=== PATIENT | female | born 1950 | race Two or more races ===

== ENCOUNTER → 2017-02-27 | Outpatient (CLI) | payer MEDICARE, OTHER ==
[2017-02-27 12:19] LABS: Basophils # (auto) 0 uL; Basophils % (auto) 0.3 % (0.0-2.0); Eosinophils # (auto) 0.2 uL; Hemoglobin 15.1 g/dL (12.2-16.2); Lymphocytes # (auto) 1.3 uL; Lymphocytes % (auto) 15.1 % (10.0-50.0); Mean Corpuscular Hemoglobin 30.9 pg (28.0-32.0); Mean Corpuscular Hgb Conc. 32.2 g/dL (32.0-36.0); Mean Platelet Volume 8.5 fL (7.4-10.4); Monocytes # (auto) 0.5 uL; Monocytes % (auto) 5.5 % (0.0-12.0); Neutrophils # (auto) 6.6 uL; Neutrophils % (auto) 77.1 % (37.0-80.0); Platelet Count (auto) 297 10^3/uL (140-450); Red Cell Distribution Width 14.9 % (11.6-16.0); White Blood Cell 8.6 10^3/uL (4.4-10.8)
[2017-02-27 12:59] LABS: Urine Bilirubin Negative (Negative); Urine Blood TRACE /uL (Negative); Urine Color Yellow (Yellow); Urine Glucose Normal (Normal); Urine Ketone Negative (Negative); Urine Nitrite Negative (Negative); Urine RBC 1 /hpf (0 - 4); Urine Squamous Epithelial Cell FEW /hpf (<5); Urine Urobilinogen Normal (Negative); Urine pH 5.5 (5.0-8.0)
[2017-02-27 13:15] LABS: Urine Protein/Creatinine Ratio 0.11
[2017-02-27 14:16] LABS: Albumin 3.5 g/dL (3.4-5.0); BUN/Creatinine Ratio 15.2; Calcium 8.6 mg/dL (8.5-10.1); Phosphorus 2.8 mg/dL (2.5-4.90); Potassium 3.8 mmol/L (3.5-5.1); Uric Acid 3.3 mg/dL (2.6-6.0)
== END | disposition home or self-care (01) ==
LOC: LAB 10:52
PROVIDERS: ATTEND Internal Medicine Cardiovascular Disease
DX: N18.3 Chronic kidney disease, stage 3 (moderate) (principal); E21.3 Hyperparathyroidism, unspecified; E63.1 Imbalance of constituents of food intake; R80.9 Proteinuria, unspecified; E78.5 Hyperlipidemia, unspecified; E55.9 Vitamin D deficiency, unspecified; M10.9 Gout, unspecified
CPT/HCPCS: 36415; 80069; 81001; 82306; 82570; 83970; 84156; 84550; 85025

== ENCOUNTER → 2017-10-02 | Outpatient (CLI) | payer MEDICARE, OTHER ==
[2017-10-02 16:29] LABS: Basophils # (auto) 0 uL; Basophils % (auto) 0.4 % (0.0-2.0); Eosinophils # (auto) 0.1 uL; Eosinophils % (auto) 1.8 % (0.0-7.0); Hematocrit 45.7 % (36.0-46.0); Lymphocytes # (auto) 1.1 uL; Lymphocytes % (auto) 14.3 % (10.0-50.0); Mean Corpuscular Hemoglobin 32.1 pg (28.0-32.0); Mean Corpuscular Hgb Conc. 32.9 g/dL (32.0-36.0); Mean Corpuscular Volume 97.5 fL (80.0-100.0); Mean Platelet Volume 8.3 fL (6.9-10.8); Monocytes # (auto) 0.4 uL; Monocytes % (auto) 5.4 % (0.0-12.0); Neutrophils # (auto) 6.1 uL; Neutrophils % (auto) 78.1 % (37.0-80.0); Nucleated Red Blood Cells % 0.3 %; Platelet Count (auto) 231 10^3/uL (140-450); Red Cell Distribution Width 14.9 % (11.8-14.3); White Blood Cell 7.8 10^3/uL (4.4-10.8)
[2017-10-02 16:33] LABS: Urine Bilirubin Negative (Negative); Urine Blood Negative /uL (Negative); Urine Color Yellow (Yellow); Urine Glucose Normal (Normal); Urine Ketone Negative (Negative); Urine Mucus FEW (None Seen); Urine Nitrite Negative (Negative); Urine RBC 1 /hpf (0 - 4); Urine Squamous Epithelial Cell FEW /hpf (<5); Urine Urobilinogen Normal (Negative); Urine pH 5.5 (5.0-8.0)
[2017-10-02 16:36] LABS: Albumin 3.5 g/dL (3.4-5.0); Calcium 9.1 mg/dL (8.5-10.1); Potassium 4.1 mmol/L (3.5-5.1)
[2017-10-02 16:51] LABS: Bilirubin, Total 0.8 mg/dL (0.2-1.0); Total Protein 7.6 g/dL (6.4-8.2)
[2017-10-02 17:41] LABS: Bilirubin, Direct 0.2 mg/dL (0-0.2); Uric Acid 3.7 mg/dL (2.6-6.0)
== END | disposition home or self-care (01) ==
LOC: LAB 11:06
PROVIDERS: ATTEND Internal Medicine Cardiovascular Disease
DX: I10 Essential (primary) hypertension (principal); E11.9 Type 2 diabetes mellitus without complications; E78.00 Pure hypercholesterolemia, unspecified; K74.1 Hepatic sclerosis; E03.9 Hypothyroidism, unspecified; D64.9 Anemia, unspecified; E55.9 Vitamin D deficiency, unspecified; N39.0 Urinary tract infection, site not specified
CPT/HCPCS: 36415; 80048; 80061; 80076; 81001; 82306; 82570; 83036; 83970; 84156; 84443; 84550; 85025

== ENCOUNTER → 2018-04-10 | Outpatient (CLI) | payer MEDICARE, OTHER ==
[2018-04-10 16:20] LABS: Urine Bacteria FEW /hpf (None Seen); Urine Blood Negative /uL (Negative); Urine Mucus FEW (None Seen); Urine Specific Gravity 1.021 (1.001-1.035); Urine WBC 1 /hpf (0 - 5)
[2018-04-10 16:24] LABS: Albumin 3.3 g/dL (3.4-5.0); BUN/Creatinine Ratio 15.7; Calcium 8.6 mg/dL (8.5-10.1); Phosphorus 3.3 mg/dL (2.5-4.90); Uric Acid 3.4 mg/dL (2.6-6.0)
[2018-04-10 16:28] LABS: Protein, Urine 25.1 mg/dL (0.0-11.9)
[2018-04-10 16:37] LABS: Basophils # (auto) 0.1 uL; Basophils % (auto) 0.9 % (0.0-2.0); Eosinophils # (auto) 0.3 uL; Eosinophils % (auto) 2.8 % (0.0-7.0); Hemoglobin 14.9 g/dL (12.2-16.2); Lymphocytes # (auto) 1.5 uL; Lymphocytes % (auto) 16.3 % (10.0-50.0); Mean Corpuscular Hemoglobin 31.9 pg (28.0-32.0); Mean Corpuscular Volume 96.6 fL (80.0-100.0); Monocytes # (auto) 0.6 uL; Monocytes % (auto) 6.5 % (0.0-12.0); Neutrophils # (auto) 6.9 uL; Neutrophils % (auto) 73.5 % (37.0-80.0); Nucleated Red Blood Cells % 0.2 %; Platelet Count (auto) 238 10^3/uL (140-450); Red Blood Cells 4.66 10^6/uL (4.0-5.20); White Blood Cell 9.4 10^3/uL (4.4-10.8)
== END | disposition home or self-care (01) ==
LOC: LAB 11:11
PROVIDERS: ATTEND Internal Medicine
DX: M10.9 Gout, unspecified (principal); R80.9 Proteinuria, unspecified; I12.9 Hypertensive chronic kidney disease with stage 1 through stage 4 chronic kidney disease, or unspecified chronic kidney disease; E11.22 Type 2 diabetes mellitus with diabetic chronic kidney disease; N18.3 Chronic kidney disease, stage 3 (moderate); D63.1 Anemia in chronic kidney disease; E27.3 Drug-induced adrenocortical insufficiency; E78.5 Hyperlipidemia, unspecified
CPT/HCPCS: 36415; 80069; 81001; 82570; 83970; 84156; 84550; 85025

== ENCOUNTER → 2018-12-18 | Outpatient (CLI) | payer MEDICARE, OTHER ==
[2018-12-18 16:23] LABS: Basophils # (auto) 0.1 uL; Basophils % (auto) 0.7 % (0.0-2.0); Eosinophils # (auto) 0.2 uL; Eosinophils % (auto) 2.2 % (0.0-7.0); Hematocrit 46.5 % (36.0-46.0); Lymphocytes % (auto) 13.4 % (10.0-50.0); Mean Corpuscular Hemoglobin 31.4 pg (28.0-32.0); Mean Corpuscular Hgb Conc. 32.3 g/dL (32.0-36.0); Mean Corpuscular Volume 97.4 fL (80.0-100.0); Monocytes # (auto) 0.6 uL; Monocytes % (auto) 7.7 % (0.0-12.0); Neutrophils # (auto) 5.6 uL; Nucleated Red Blood Cells % 0.7 %; Platelet Count (auto) 215 10^3/uL (140-450); Red Blood Cells 4.77 10^6/uL (4.0-5.20); Red Cell Distribution Width 15.8 % (11.8-14.3); White Blood Cell 7.4 10^3/uL (4.4-10.8)
[2018-12-18 16:27] LABS: Urine Blood Negative /uL (Negative); Urine Specific Gravity 1.014 (1.001-1.035)
[2018-12-18 16:33] LABS: Albumin 3.7 g/dL (3.4-5.0); Calcium 8.8 mg/dL (8.5-10.1); Potassium 3.6 mmol/L (3.5-5.1); Uric Acid 3.6 mg/dL (2.6-6.0)
[2018-12-18 16:38] LABS: BUN/Creatinine Ratio 13.4; Bilirubin, Direct 0.4 mg/dL (0-0.2); Bilirubin, Total 1.4 mg/dL (0.2-1.0); Phosphorus 3.5 mg/dL (2.5-4.90); Total Protein 6.9 g/dL (6.4-8.2)
[2018-12-18 16:41] LABS: Creatinine, Urine 105 mg/dL (30.0-125.0); Protein, Urine 63.5 mg/dL (0.0-11.9)
== END | disposition home or self-care (01) ==
LOC: LAB 11:05
PROVIDERS: ATTEND Internal Medicine
DX: E55.9 Vitamin D deficiency, unspecified (principal); M10.9 Gout, unspecified; E21.4 Other specified disorders of parathyroid gland; R80.9 Proteinuria, unspecified; E78.5 Hyperlipidemia, unspecified; N39.0 Urinary tract infection, site not specified
CPT/HCPCS: 36415; 80061; 80069; 80076; 81003; 82306; 82570; 83970; 84156; 84550; 85025

== ENCOUNTER → 2018-12-31 | Outpatient (CLI) | payer MEDICARE, OTHER | END | disposition home or self-care (01) | LOC: Rad HDHVI 14:59 | PROVIDERS: ATTEND Internal Medicine Cardiovascular Disease | DX: I07.1 Rheumatic tricuspid insufficiency (principal); I12.9 Hypertensive chronic kidney disease with stage 1 through stage 4 chronic kidney disease, or unspecified chronic kidney disease; N18.9 Chronic kidney disease, unspecified; E78.5 Hyperlipidemia, unspecified | CPT/HCPCS: 93306 ==

== ENCOUNTER → 2019-01-11 | Outpatient (CLI) | payer MEDICARE, OTHER ==
[2019-01-11 11:00] VITALS: BP 153/76
--- NOTE | 2019-01-11 11:00 | NUR ---
MORBIDLY OBESE FEMALE IN TO CLINIC FOR NEW START EVALUATION AND PAH EDUCATION. IN ATTENDANCE. CRUTCHES IN USE FOR AMBULATORY ASSISTANCE. DYSPNEA NOTED WITH ACTIVITY. VS WNL.
[2019-01-11 13:47] VITALS: BP 139/63
--- NOTE | 2019-01-11 13:47 | NUR ---
EXTENSIVE EDUCATION REGARDING PAH DISEASE PROCESS, TREATMENT, SYMPTOMS AND LIFESTYLE MANAGEMENT BY JUNIOR RN WITH PATIENT AND PATIENTS . RECEPTIVE TO EDUCATION. VERBAL, WRITTEN, TEACHING TOOLS AND DEMONSTRATION METHODS USED. PT VERBALIZED OPENLY ABOUT CURRENT STATUS AND CONCERNS REGARDING HEALTH. PLAN FOR WELLNESS AND INITIAL GOALS DISCUSSED. PT TO START ADCIRCA 20 MG PO BID. CARDIODYNAMICS DONE AND REVIEWED. 6MWT DONE AND REVIEWED. LABS DRAWN AND SENT. ALL QUESTIONS ANSWERED TO SATISFACTION AND ADDITIONAL QUESTIONS DENIED. ONE ON ONE EDUCATION FOR 2 HOURS TOTAL ACHIEVED.Discharge Instructions See e-MAR for any mediations given with this visit. Patient education given on disease process. Patient verbalized understanding. Previous labs reviewed. Patient discharged in stable condition TO CARE OF with after care instructions and follow up appointment FOR 1 MONTH.
[2019-01-11 15:59] LABS: Basophils # (auto) 0 uL; Basophils % (auto) 0.7 % (0.0-2.0); Eosinophils # (auto) 0.2 uL; Eosinophils % (auto) 2.2 % (0.0-7.0); Hematocrit 46.6 % (36.0-46.0); Lymphocytes # (auto) 1.1 uL; Lymphocytes % (auto) 15.5 % (10.0-50.0); Mean Corpuscular Hgb Conc. 32.1 g/dL (32.0-36.0); Mean Corpuscular Volume 96.5 fL (80.0-100.0); Monocytes # (auto) 0.5 uL; Monocytes % (auto) 6.6 % (0.0-12.0); Neutrophils # (auto) 5.1 uL; Nucleated Red Blood Cells % 0.3 %; Platelet Count (auto) 216 10^3/uL (140-450); Red Blood Cells 4.83 10^6/uL (4.0-5.20); Red Cell Distribution Width 15.5 % (11.8-14.3); White Blood Cell 6.8 10^3/uL (4.4-10.8)
[2019-01-11 16:30] LABS: Albumin 3.1 g/dL (3.4-5.0); Calcium 8.7 mg/dL (8.5-10.1); Magnesium 2.3 mg/dL (1.6-2.6)
[2019-01-11 16:34] LABS: BUN/Creatinine Ratio 18.6; Bilirubin, Total 0.9 mg/dL (0.2-1.0); Total Protein 6.6 g/dL (6.4-8.2)
== END | disposition home or self-care (01) ==
LOC: CHF HDHVI 11:00
PROVIDERS: ATTEND Internal Medicine Cardiovascular Disease
DX: I27.20 Pulmonary hypertension, unspecified (principal); I25.10 Atherosclerotic heart disease of native coronary artery without angina pectoris; E83.40 Disorders of magnesium metabolism, unspecified; D64.9 Anemia, unspecified; I12.9 Hypertensive chronic kidney disease with stage 1 through stage 4 chronic kidney disease, or unspecified chronic kidney disease; N18.9 Chronic kidney disease, unspecified
CPT/HCPCS: 36415; 80053; 83735; 85025; 93701; 94618; G0463

== ENCOUNTER → 2019-01-28 | Outpatient (CLI) | payer MEDICARE, OTHER ==
[2019-01-28 11:30] VITALS: BP 122/75
[2019-01-28 12:15] VITALS: BP 118/64
--- NOTE | 2019-01-28 12:15 | NUR ---
CHF CLINIC Discharge Instructions See e-MAR for any mediations given with this visit. Patient education given on disease process. Patient verbalized understanding. Previous labs reviewed. Patient discharged in stable condition with after care instructions and follow up appointment. NOTE PATIENT IS NEW ENROLLMENT ON ADEMPAS. LABS SENT, QUESTIONS ON NEW MEDICATION ANSWERED, PATIENT WILL RETURN TO CLINIC WHEN PRESCRIPTION ARRIVES.
[2019-01-28 16:19] LABS: Magnesium 2.4 mg/dL (1.6-2.6); Potassium 3.8 mmol/L (3.5-5.1)
== END | disposition home or self-care (01) ==
LOC: CHF HDHVI 10:55
PROVIDERS: ATTEND Internal Medicine Cardiovascular Disease
DX: E11.9 Type 2 diabetes mellitus without complications (principal); E83.40 Disorders of magnesium metabolism, unspecified; E03.9 Hypothyroidism, unspecified; E87.6 Hypokalemia; R94.4 Abnormal results of kidney function studies
CPT/HCPCS: 36415; 82565; 83036; 83735; 84132; 84443; 84520

== ENCOUNTER → 2019-02-19 | Outpatient (CLI) | payer MEDICARE, OTHER ==
[2019-02-19 12:30] VITALS: BP 136/51
--- NOTE | 2019-02-19 12:30 | NUR ---
CHF PT ARRIVED AT THE CHF CLINIC FOR NEW PAH THERAPY. VITAL SIGNS OBTAINED 0 DISTRESS NOTED
--- NOTE | 2019-02-19 12:45 | NUR ---
Dr. Juni Hughes at bedside Dr. Hughes at bedside for exam. Additional orders received and carried out. DISCUSSED PLAN OF CARE WITH PATIENT . NEW START ADEMPOS 0.5 MG TID , FOLLOW UP IN 1 WEEK. LABS DRAWN POTASSIUM, BUN, CREA
[2019-02-19 14:17] VITALS: BP 155/67
--- NOTE | 2019-02-19 14:17 | NUR ---
Discharge Instructions See e-MAR for any mediations given with this visit. Patient education given on disease process. Patient verbalized understanding. Previous labs reviewed. Patient discharged in stable condition with after care instructions and follow up appointment.
== END | disposition home or self-care (01) ==
LOC: CHF HDHVI 12:35
PROVIDERS: ATTEND Internal Medicine Cardiovascular Disease
DX: I27.21 Secondary pulmonary arterial hypertension (principal)
CPT/HCPCS: G0463

== ENCOUNTER → 2019-03-01 | Outpatient (CLI) | payer MEDICARE, OTHER ==
[2019-03-01 13:20] VITALS: BP 126/68
[2019-03-01 14:38] VITALS: BP 121/63
--- NOTE | 2019-03-01 14:38 | NUR ---
IN TO CLINIC FOR PAH FOLLOWUP AFTER STARTING ADEMPAS X 1 WEEK AGO. WITHOUT DISTRESS OR DISCOMFORT. VS WNL. LABS DRAWN AND SENT. MEDICATION REVIEW COMPLETED. TEACHING WITH MEDICATIONS AND ADLS BY JUNIOR WEBER. Discharge Instructions See e-MAR for any mediations given with this visit. Patient education given on disease process. Patient verbalized understanding. Previous labs reviewed. Patient discharged in stable condition with after care instructions and follow up appointment FOR Monday03/04/[address] COLEMAN.
[2019-03-01 15:51] LABS: Basophils # (auto) 0 uL; Basophils % (auto) 0.7 % (0.0-2.0); Eosinophils # (auto) 0.2 uL; Eosinophils % (auto) 2.4 % (0.0-7.0); Hematocrit 42.7 % (36.0-46.0); Lymphocytes # (auto) 1.4 uL; Lymphocytes % (auto) 20.5 % (10.0-50.0); Mean Corpuscular Hemoglobin 31.6 pg (28.0-32.0); Mean Corpuscular Hgb Conc. 32.8 g/dL (32.0-36.0); Mean Corpuscular Volume 96.3 fL (80.0-100.0); Monocytes # (auto) 0.5 uL; Monocytes % (auto) 7.1 % (0.0-12.0); Neutrophils # (auto) 4.8 uL; Neutrophils % (auto) 69.3 % (37.0-80.0); Nucleated Red Blood Cells % 0.1 %; Platelet Count (auto) 174 10^3/uL (140-450); Red Blood Cells 4.43 10^6/uL (4.0-5.20); White Blood Cell 6.9 10^3/uL (4.4-10.8)
[2019-03-01 15:57] LABS: Albumin 3.2 g/dL (3.4-5.0); Calcium 8.8 mg/dL (8.5-10.1); Magnesium 2.4 mg/dL (1.6-2.6); Potassium 4.4 mmol/L (3.5-5.1)
[2019-03-01 16:03] LABS: BUN/Creatinine Ratio 21.3; Total Protein 6.3 g/dL (6.4-8.2)
== END | disposition home or self-care (01) ==
LOC: CHF HDHVI 13:49
PROVIDERS: ATTEND Internal Medicine Cardiovascular Disease
DX: D64.9 Anemia, unspecified (principal); I10 Essential (primary) hypertension; I27.21 Secondary pulmonary arterial hypertension; E66.9 Obesity, unspecified; Z79.899 Other long term (current) drug therapy
CPT/HCPCS: 36415; 80053; 83735; 85025; G0463

== ENCOUNTER → 2019-03-12 | Outpatient (CLI) | payer MEDICARE, OTHER ==
[2019-03-12 14:00] VITALS: BP 128/71
[2019-03-12 14:55] VITALS: BP 113/57
--- NOTE | 2019-03-12 14:55 | NUR ---
IN TO CLINIC FOR PAH FOLLOWUP. AMBULATES WITH USE OF CRUTCHES . WITHOUT DISTRESS OR DISCOMFORT. EVALUATE PAH AND MEDICATION REGIMEN. CARDIODYNAMICS DONE AND REVIEWED. Discharge Instructions See e-MAR for any mediations given with this visit. Patient education given on disease process. Patient verbalized understanding. Previous labs reviewed. Patient discharged in stable condition with after care instructions and follow up appointment IN 2 WEEKS
[2019-03-12 17:02] LABS: Albumin 3.3 g/dL (3.4-5.0); Calcium 9.8 mg/dL (8.5-10.1); Magnesium 2.2 mg/dL (1.6-2.6); Potassium 4.1 mmol/L (3.5-5.1)
[2019-03-12 17:06] LABS: BUN/Creatinine Ratio 22.9; Bilirubin, Total 0.8 mg/dL (0.2-1.0); Total Protein 6.3 g/dL (6.4-8.2)
[2019-03-12 17:08] LABS: Basophils # (auto) 0 uL; Basophils % (auto) 0.7 % (0.0-2.0); Eosinophils # (auto) 0.1 uL; Eosinophils % (auto) 1.8 % (0.0-7.0); Hematocrit 42.3 % (36.0-46.0); Lymphocytes % (auto) 16.6 % (10.0-50.0); Mean Corpuscular Hemoglobin 31.8 pg (28.0-32.0); Mean Corpuscular Volume 96.2 fL (80.0-100.0); Monocytes # (auto) 0.4 uL; Monocytes % (auto) 5.8 % (0.0-12.0); Neutrophils # (auto) 4.7 uL; Neutrophils % (auto) 75.1 % (37.0-80.0); Platelet Count (auto) 186 10^3/uL (140-450); Red Cell Distribution Width 16.6 % (11.8-14.3); White Blood Cell 6.3 10^3/uL (4.4-10.8)
== END | disposition home or self-care (01) ==
LOC: CHF HDHVI 14:38
PROVIDERS: ATTEND Internal Medicine Cardiovascular Disease
DX: D64.9 Anemia, unspecified (principal); E61.2 Magnesium deficiency; I11.0 Hypertensive heart disease with heart failure; I50.9 Heart failure, unspecified; E66.01 Morbid (severe) obesity due to excess calories; R53.83 Other fatigue; I25.10 Atherosclerotic heart disease of native coronary artery without angina pectoris
CPT/HCPCS: 36415; 80053; 83735; 85025; 93701; G0463

== ENCOUNTER → 2019-03-26 | Outpatient (CLI) | payer MEDICARE, OTHER ==
[2019-03-26 13:30] VITALS: BP 112/58
[2019-03-26 15:00] VITALS: BP 99/51
--- NOTE | 2019-03-26 15:02 | NUR ---
IN TO CLINIC FOR PAH FOLLOWUP. MORBIDLY OBESE AND USES CRUTCHES FOR ROUTINE AMBULATION. CARDIODYNAMICS DONE AND REVIEWED. MEDICATION REGIMEN REVIEWED WITH CURRENT SCHEDULE. REDUCE CURRENT BP MED LISINOPRIL TO 5 MG PO BID. (FROM 10 MG PO DAILY). PAH REVIEW AND EDUCATION WITH JUNIOR WEBER. ADDITIONAL QUESTIONS DENIED. PT IS REPORTING SIGNIFICANT HEARTBURN. NEW RX FOR DEXILANT SENT ELECTRONICALLY TO PTS PHARMACY. REDUCE LISINOPRIL TO 5 MG PO BID AND START DEXILANT 60 MG PO DAILY DISCHARGED TO SELF CARE IN NO DISTRESS OR DISCOMFORT.
[2019-03-26 16:03] LABS: Basophils # (auto) 0 uL; Basophils % (auto) 0.5 % (0.0-2.0); Eosinophils # (auto) 0.1 uL; Eosinophils % (auto) 1.6 % (0.0-7.0); Hematocrit 42.5 % (36.0-46.0); Lymphocytes # (auto) 1.2 uL; Lymphocytes % (auto) 15.9 % (10.0-50.0); Mean Corpuscular Hemoglobin 31.9 pg (28.0-32.0); Mean Corpuscular Hgb Conc. 32.8 g/dL (32.0-36.0); Mean Corpuscular Volume 97.3 fL (80.0-100.0); Monocytes # (auto) 0.4 uL; Monocytes % (auto) 5.9 % (0.0-12.0); Neutrophils # (auto) 5.6 uL; Neutrophils % (auto) 76.1 % (37.0-80.0); Nucleated Red Blood Cells % 0.1 %; Platelet Count (auto) 167 10^3/uL (140-450); Red Blood Cells 4.37 10^6/uL (4.0-5.20); Red Cell Distribution Width 17.1 % (11.8-14.3); White Blood Cell 7.4 10^3/uL (4.4-10.8)
[2019-03-26 16:05] LABS: Urine Blood Negative /uL (Negative); Urine Specific Gravity 1.017 (1.001-1.035)
[2019-03-26 16:13] LABS: Albumin 3.4 g/dL (3.4-5.0); BUN/Creatinine Ratio 21.5; Calcium 9.5 mg/dL (8.5-10.1); Phosphorus 3.5 mg/dL (2.5-4.90); Uric Acid 4.2 mg/dL (2.6-6.0)
[2019-03-26 16:23] LABS: Creatinine, Urine 202 mg/dL (30.0-125.0); Protein, Urine 28.7 mg/dL (0.0-11.9)
== END | disposition home or self-care (01) ==
LOC: CHF HDHVI 13:41
PROVIDERS: ATTEND Internal Medicine Cardiovascular Disease
DX: E21.4 Other specified disorders of parathyroid gland (principal); R80.9 Proteinuria, unspecified; N25.89 Other disorders resulting from impaired renal tubular function; M10.9 Gout, unspecified; D64.9 Anemia, unspecified; I11.0 Hypertensive heart disease with heart failure; I50.9 Heart failure, unspecified; I25.10 Atherosclerotic heart disease of native coronary artery without angina pectoris; E66.01 Morbid (severe) obesity due to excess calories; E11.69 Type 2 diabetes mellitus with other specified complication; E03.9 Hypothyroidism, unspecified; Z79.899 Other long term (current) drug therapy
CPT/HCPCS: 36415; 80048; 80069; 81003; 82570; 83970; 84156; 84550; 85025; 93701; G0463

== ENCOUNTER → 2019-04-09 | Outpatient (CLI) | payer MEDICARE, OTHER ==
[2019-04-09 13:00] VITALS: BP 112/46
[2019-04-09 14:00] VITALS: BP 97/43
--- NOTE | 2019-04-09 14:00 | NUR ---
IN TO CLINIC FOR PAH FOLLOWUP. USING CRUTCHES TO AMBULATE. AFFECT CHEERFUL. WITHOUT DISTRESS OR DISCOMFORT. PT VERBALIZES CONCERN OVER LOW BPS AT HOME. BROUGHT CUFF FROM HOME. CUFF CALIBRATED AND PT WAS PLACING CUFF INCORRECTLY ON ARM. INSTRUCTED ON CORRECT PLACEMENT AND DEMONSTRATED ALSO.VS WNL. WITHOUT DISTRESS OR DISCOMFORT. PT DECLINED CARDIODYNAMICS AND DECLINED 6MWT. DISCHARGED TO SELF CARE WITH FOLLOWUP IN 2 WEEKS 04/23/19 [id number].
== END | disposition home or self-care (01) ==
LOC: CHF HDHVI 13:22
PROVIDERS: ATTEND Internal Medicine Cardiovascular Disease
DX: I27.21 Secondary pulmonary arterial hypertension (principal)
CPT/HCPCS: G0463

== ENCOUNTER → 2019-05-15 | Outpatient (CLI) | payer MEDICARE, OTHER | END | disposition home or self-care (01) | LOC: Rad HDHVI 15:02 | PROVIDERS: ATTEND Internal Medicine Cardiovascular Disease | DX: I08.1 Rheumatic disorders of both mitral and tricuspid valves (principal); I27.21 Secondary pulmonary arterial hypertension; R06.02 Shortness of breath | CPT/HCPCS: 93306 ==

== ENCOUNTER → 2019-05-23 | Outpatient (CLI) | payer MEDICARE, OTHER ==
[~2019-05-23] MED LIST: CYANOCOBALAMIN (B-12) 1000 MCG/1 ML VIAL IM ONE; CYANOCOBALAMIN (B-12) 1000 MCG/1 ML VIAL ONE
--- NOTE | 2019-05-23 12:30 | NUR ---
PT. TO PAH/CHF CLINIC FOR EVAL. AND TX. WT UP 3 LBS SINCE LAST VISIT, BUT PT. HAS NOT BEEN COMPLIANT WITH QOD DIURETICS DUE TO THE PASSING OF HER MOTHER AND INCREASE STRESS. NEW MD ORDERS RECEIVED AND CARRIED OUT. SEE NSG ASSESS.
[2019-05-23 12:45] VITALS: BP 120/53
--- NOTE | 2019-05-23 13:10 | NUR ---
CARDIODYNAMICS DONE WITH RESULTS REVIEWED WITH PT. AND CHARTED.
--- NOTE | 2019-05-23 13:25 | NUR ---
LABS DRAWN AND SENT.
--- NOTE | 2019-05-23 13:45 | NUR ---
MEDS: PT. MEDICATED WITH VIT. B12 1000MCG IM RT DELT. PER MD ORDER.
[2019-05-23 14:15] VITALS: BP 116/44
--- NOTE | 2019-05-23 14:15 | NUR ---
Discharge Instructions See e-MAR for any mediations given with this visit. Patient education given on disease process. Patient verbalized understanding. Previous labs reviewed. Patient discharged in stable condition with after care instructions and follow up appointment. PT. TO RTC ON 06/04 FOR LABS. PT. TO STAY AT ADEMPAS 1.5 MG TID UNTIL SHE RETURNS FROM [facility].
--- NOTE | 2019-05-23 14:20 | NUR ---
NOTES: PAH CLINIC VISIT, VIT. B12 1000MCG IM, CARDIODYNAMICS, LABS
[2019-05-23 16:00] LABS: Calcium 8.3 mg/dL (8.5-10.1); Potassium 3.7 mmol/L (3.5-5.1)
[2019-05-23 16:06] LABS: BUN/Creatinine Ratio 17.4; Bilirubin, Total 0.8 mg/dL (0.2-1.0); Total Protein 5.9 g/dL (6.4-8.2)
== END | disposition home or self-care (01) ==
LOC: CHF HDHVI 12:37
PROVIDERS: ATTEND Internal Medicine Cardiovascular Disease
DX: I27.21 Secondary pulmonary arterial hypertension (principal); I13.0 Hypertensive heart and chronic kidney disease with heart failure and stage 1 through stage 4 chronic kidney disease, or unspecified chronic kidney disease; N18.3 Chronic kidney disease, stage 3 (moderate); I50.9 Heart failure, unspecified; E66.01 Morbid (severe) obesity due to excess calories; D64.9 Anemia, unspecified; Z79.899 Other long term (current) drug therapy
CPT/HCPCS: 36415; 80053; 83036; 93701; 96372; G0463; J3420

== ENCOUNTER → 2019-06-05 | Outpatient (CLI) | payer MEDICARE, OTHER ==
[2019-06-05 14:10] VITALS: BP 134/66
[2019-06-05 14:30] VITALS: BP 134/66
--- NOTE | 2019-06-05 14:30 | NUR ---
Discharge Instructions See e-MAR for any mediations given with this visit. Patient education given on disease process. Patient verbalized understanding. Previous labs reviewed. Patient discharged in stable condition with after care instructions and follow up appointment ON 06/19/19. NOTE LABS REVIEWED WITH PATIENT.
== END | disposition home or self-care (01) ==
LOC: CHF HDHVI 14:43
PROVIDERS: ATTEND Internal Medicine Cardiovascular Disease
DX: I27.21 Secondary pulmonary arterial hypertension (principal)
CPT/HCPCS: G0463

== ENCOUNTER → 2019-06-19 | Outpatient (CLI) | payer MEDICARE, OTHER ==
--- NOTE | 2019-06-19 14:15 | NUR ---
PT. TO PAH CLINIC FOR EVAL. AND TX. PT. HAS BEEN TRAVELING TO [place] AND ONLY GAINED ONE OUNCE SINCE TRIP. NOTED HX OF MORBID OBESITY WITH HER PAH HX. ORDERS RECEIVED AND CARRIED OUT. SEE NSG ASSESS.
[2019-06-19 14:30] VITALS: BP 121/71
--- NOTE | 2019-06-19 14:30 | NUR ---
LABS DRAWN AND SENT.
--- NOTE | 2019-06-19 14:50 | NUR ---
CARDIODYNAMIC DONE AND REVIEWED WITH PATIENT.
[2019-06-19 15:15] VITALS: BP 122/69
--- NOTE | 2019-06-19 15:15 | NUR ---
Discharge Instructions See e-MAR for any mediations given with this visit. Patient education given on disease process. Patient verbalized understanding. Previous labs reviewed. Patient discharged in stable condition with after care instructions and follow up appointment. PT. TO RTC IN ONE WEEK.
[2019-06-19 15:47] LABS: Basophils # (auto) 0 uL; Basophils % (auto) 0.7 % (0.0-2.0); Eosinophils # (auto) 0.1 uL; Eosinophils % (auto) 2.5 % (0.0-7.0); Hematocrit 38.2 % (36.0-46.0); Hemoglobin 12.7 g/dL (12.2-16.2); Lymphocytes # (auto) 0.8 uL; Lymphocytes % (auto) 14.9 % (10.0-50.0); Mean Corpuscular Hemoglobin 33.2 pg (28.0-32.0); Mean Corpuscular Hgb Conc. 33.3 g/dL (32.0-36.0); Mean Corpuscular Volume 99.8 fL (80.0-100.0); Monocytes # (auto) 0.4 uL; Monocytes % (auto) 6.8 % (0.0-12.0); Neutrophils # (auto) 4.2 uL; Neutrophils % (auto) 75.1 % (37.0-80.0); Nucleated Red Blood Cells % 0.1 %; Platelet Count (auto) 158 10^3/uL (140-450); Red Blood Cells 3.82 10^6/uL (4.0-5.20); Red Cell Distribution Width 14.9 % (11.8-14.3); White Blood Cell 5.6 10^3/uL (4.4-10.8)
[2019-06-19 15:59] LABS: Calcium 8.1 mg/dL (8.5-10.1); Potassium 3.7 mmol/L (3.5-5.1)
[2019-06-19 16:03] LABS: BUN/Creatinine Ratio 18.9; Magnesium 1.8 mg/dL (1.6-2.6)
== END | disposition home or self-care (01) ==
LOC: CHF HDHVI 14:14
PROVIDERS: ATTEND Internal Medicine Cardiovascular Disease
DX: E83.40 Disorders of magnesium metabolism, unspecified (principal); D64.9 Anemia, unspecified; K90.9 Intestinal malabsorption, unspecified; I27.20 Pulmonary hypertension, unspecified; E66.01 Morbid (severe) obesity due to excess calories
CPT/HCPCS: 36415; 80048; 82306; 83735; 85025; 93701; G0463

== ENCOUNTER → 2019-07-03 | Outpatient (CLI) | payer MEDICARE, OTHER ==
[2019-07-03 13:30] VITALS: BP 119/50
[2019-07-03 14:05] VITALS: BP 119/50
--- NOTE | 2019-07-03 14:16 | NUR ---
TO BACK OFFICE FOR APPOINTMENT WITH DR COLEMAN
--- NOTE | 2019-07-03 14:30 | NUR ---
IN FOR PAH FOLLOWUP. DYSPNEIC WITH ACTIVITY WITH AMBULATION WITH CRUTCHES. VS WNL. . MEDICATION AND STATUS REVIEW COMPLETED BY ÁLVARO GARAY. TO APPOINTEMENT WITH DR COLEMAN AT 1405 AND RETURNED FROM APPOINTMENT AT 1415. PLAN TO INCREASE TITRATION ON PAH MEDICATION ADEMPAS TO 2.0 MG PO DAILY. REPEAT BACK INSTRUCTIONS OBTAINED. DISCHARGED TO SELF CARE IN NO DISTRESS OR DISCOMFORT. RTC IN 3 WEEKS FOR START OF NEW ADEMPAS DOSE.
== END | disposition home or self-care (01) ==
LOC: CHF HDHVI 13:12
PROVIDERS: ATTEND Internal Medicine Cardiovascular Disease
DX: E66.01 Morbid (severe) obesity due to excess calories (principal); I27.21 Secondary pulmonary arterial hypertension
CPT/HCPCS: G0463

== ENCOUNTER 2019-07-21 15:35 | Inpatient (IN) | payer MEDICARE, OTHER ==
[~2019-07-21] VITALS: Ht 134.6 cm; Wt 153.6 kg
[2019-07-21 16:46] LABS: Alanine Aminotransferase 7 U/L (13-56); Albumin 2.7 g/dL (3.4-5.0); Anion Gap 16 (5-15); Carbon Dioxide 19 mmol/L (21-32); Chloride 105 mmol/L (98-107); Glucose 90 mg/dL (74-106); Sodium 140 mmol/L (136-145)
[2019-07-21 16:50] LABS: Basophils # (auto) 0 uL; Basophils % (auto) 0.2 % (0.0-2.0); Eosinophils # (auto) 0 uL; Eosinophils % (auto) 0.5 % (0.0-7.0); Hematocrit 40.7 % (36.0-46.0); Hemoglobin 13.1 g/dL (12.2-16.2); Lymphocytes # (auto) 0.9 uL; Lymphocytes % (auto) 12.1 % (10.0-50.0); Mean Corpuscular Hemoglobin 31.7 pg (28.0-32.0); Mean Corpuscular Hgb Conc. 32.3 g/dL (32.0-36.0); Mean Corpuscular Volume 98.2 fL (80.0-100.0); Monocytes # (auto) 0.7 uL; Monocytes % (auto) 9.3 % (0.0-12.0); Neutrophils # (auto) 6.1 uL; Neutrophils % (auto) 77.9 % (37.0-80.0); Nucleated Red Blood Cells % 0.1 %; Platelet Count (auto) 251 10^3/uL (140-450); Red Blood Cells 4.14 10^6/uL (4.0-5.20); Red Cell Distribution Width 15.5 % (11.8-14.3); White Blood Cell 7.8 10^3/uL (4.4-10.8)
[2019-07-21] MEDS ORDERED: NOREPINEPHRINE 8 MG/250ML KIT 250 ML IV ONE (16:50)
[2019-07-21 16:51] LABS: Alkaline Phosphatase 75 U/L (45-117); Aspartate Aminotransferase 8 U/L (15-37); BUN/Creatinine Ratio 6.8; Bilirubin, Total 0.6 mg/dL (0.2-1.0); GFR African American 4 mL/min; GFR Non-African American 3 mL/min; Total Protein 5.8 g/dL (6.4-8.2)
[2019-07-21 16:59] LABS: Blood Urea Nitrogen 81 mg/dL (7-18); Potassium 2.4 mmol/L (3.5-5.1)
[2019-07-21 17:01] LABS: INR 1.06 (0.9-1.15); Partial Thromboplastin Time 28.5 sec (23.64-32.05)
[2019-07-21] MEDS ORDERED: POTASSIUM CHL 20MEQ/100ML 100 ML IV ONE ×2 (17:45→19:22)
[2019-07-21] MEDS: NOREPINEPHRINE 8 MG/250ML KIT 250 ML IV SCH (17:45)
[2019-07-21] MEDS ORDERED: ALBUMIN 5% 50 ML IV ONE (20:30)
[2019-07-21] MEDS ORDERED: MORPHINE SULF INJ 2 MG/ML SYRINGE 1ML IV PRN (23:15)
[2019-07-21] MEDS: POTASSIUM CHL 20MEQ/100ML 100 ML IV SCH (23:15)
[2019-07-21] MEDS ORDERED: NITROGLYCERIN 0.4 MG SL TAB SL PRN (23:15)
[2019-07-21] MEDS ORDERED: SODIUM CHLORIDE 0.9% 1,000 ML IV ONE (23:15)
[2019-07-22] VITALS (30 sets, daily range): BP systolic 78–109; BP diastolic 29–63
[2019-07-22] MEDS: POTASSIUM CHL 20MEQ/100ML 100 ML IV SCH ×5 (01:15→13:00)
[2019-07-22] MEDS ORDERED: SODIUM CHLORIDE 0.9% 1,000 ML IV ONE (06:30)
[2019-07-22 07:29] LABS: Basophils # (auto) 0 uL; Basophils % (auto) 0.5 % (0.0-2.0); Eosinophils # (auto) 0.1 uL; Eosinophils % (auto) 1.1 % (0.0-7.0); Hemoglobin 13.7 g/dL (12.2-16.2); Lymphocytes # (auto) 1.4 uL; Mean Corpuscular Hemoglobin 32.2 pg (28.0-32.0); Mean Corpuscular Hgb Conc. 32.6 g/dL (32.0-36.0); Mean Corpuscular Volume 98.7 fL (80.0-100.0); Monocytes # (auto) 1.1 uL; Monocytes % (auto) 12.6 % (0.0-12.0); Neutrophils # (auto) 6.2 uL; Neutrophils % (auto) 69.8 % (37.0-80.0); Nucleated Red Blood Cells % 0.2 %; Platelet Count (auto) 277 10^3/uL (140-450); Red Blood Cells 4.25 10^6/uL (4.0-5.20); Red Cell Distribution Width 15.8 % (11.8-14.3); White Blood Cell 8.8 10^3/uL (4.4-10.8)
[2019-07-22 07:47] LABS: Albumin 2.8 g/dL (3.4-5.0); Calcium 6.6 mg/dL (8.5-10.1)
[2019-07-22 07:49] LABS: BUN/Creatinine Ratio 7.2
[2019-07-22 07:52] LABS: Bilirubin, Total 0.5 mg/dL (0.2-1.0)
[2019-07-22 07:56] LABS: Potassium 2.8 mmol/L (3.5-5.1)
[2019-07-22] MEDS ORDERED: OXYB10TA14 PO (08:29)
[2019-07-22] MEDS ORDERED: MAGN400T5 PO (08:29)
[2019-07-22] MEDS ORDERED: RIOC1TAB5 PO (08:29)
[2019-07-22] MEDS ORDERED: DEXL60CA3 PO (08:29)
[2019-07-22] MEDS ORDERED: LISI-275 PO (08:29)
[2019-07-22] MEDS ORDERED: ATOR10TA52 PO (08:29)
[2019-07-22] MEDS ORDERED: ONDA-144 PO (08:29)
[2019-07-22] MEDS ORDERED: ALLO300T2 PO (08:29)
[2019-07-22] MEDS ORDERED: SOTA80TA PO (08:29)
[2019-07-22] MEDS ORDERED: FURO40TA4 PO (08:29)
[2019-07-22] MEDS ORDERED: POTA10TA51 PO (08:29)
[2019-07-22] MEDS ORDERED: CHOLESTYRAMINE 4 GM POWDER PO SCH (10:00)
[2019-07-22] MEDS: SODIUM CHLORIDE 0.9% 1,000 ML IV SCH ×3 (12:09→21:41)
[2019-07-22] MEDS: ONDANSETRON HCL 4 MG/2 ML VIAL IV PRN (12:22)
--- NOTE | 2019-07-22 14:50 | NUR ---
RECEIVED FROM ED, A/O X4 PT CURRENTLY ON 30 MCG OF LEVO FOR HYPOTENSION, PT HAVING DIARRHEA X 6 WEEKS AND IS NOW HAVING ACUTE RENAL FAILURE WITH HYPOKALEMIA. VIA 2 20 GA IV ON RT WRIST AND RT AC, BOTH IV'S BENIGN AND PATENT. PT CURRENTLY RECEIVING ANTIBIOTICS AND IVF ANG GETTING KCL REPLACEMENT. EDUCATED ON POC, PT VERBALIZED UNDERSTANDING.
[2019-07-22] MEDS: NOREPINEPHRINE 8 MG/250ML KIT 250 ML IV SCH ×2 (16:40→21:45)
[2019-07-22] MEDS: PIPERACILLIN-TAZOB 2.25GM 50 ML IV SCH ×2 (16:40→21:41)
[2019-07-22] MEDS: metroNIDAZOLE 500MG/100ML 100 ML IV SCH ×2 (16:41→21:41)
[2019-07-22] MEDS ORDERED: POTASSIUM CHL 20MEQ/100ML 100 ML IV SCH (17:15)
--- NOTE | 2019-07-22 19:00 | NUR ---
OPENING NOTE ASSUMED CARE OF PATIENT AT THIS TIME. REPORT RECEIVED FROM DAY SHIFT RN. POC REVIEWED. HEAD TO TOE ASSESSMENT COMPLETE, SEE INTERVENTION SPREADSHEET FOR COMPLETE DETAILS. RECEIVED PT ALERT AND ORIENTED X4. PT ON BED REST. RECEIVED PT ON 29 MCG OF LEVOPHED. IV SITES BENIGN. RECEIVED PT ON 2 LTS NC. VSS. RECEIVED PT IN A-FIB. PER REPORT PT HAS CHRONIC A-FIB. CALL LIGHT WITHIN REACH. SUCTION AND BVM AT BEDSIDE. BED LOCKED AND IN LOWEST POSITION, SAFETY PRECAUTIONS IN PLACE. WILL MONITOR PT CAREFULLY.
--- NOTE | 2019-07-22 20:15 | NUR ---
OOB/ELIMINATION PT ASSISTED TO BEDSIDE COMMODE. PT HAD EPISODE OF DIARRHEA. PT CLEANED AND JOES CARE PROVIDED. PT DID NOT TOLERATE STANDING AND MOVEMENT WELL. SBP DROPPED TO 71. PT INSTRUCTED ON USE OF BED FRAIRE FOR CONTINUED ELIMINATION. PT VERBALIZED UNDERSTANDING. PT RETURNED TO BED WITH NO INCIDENT. PT REPOSITIONED FOR SAFETY AND COMFORT.
[2019-07-22] MEDS ORDERED: RIVA20TA PO (20:52)
[2019-07-22] MEDS: prednisoLONE ACETATE 1% OPTH SUSP 5ML EACHEYE SCH (21:41)
--- NOTE | 2019-07-22 23:51 | NUR ---
VOIDING/ELIMINATION PT PLACED ON BEDPAN. PT CONTINUES TO HAVE DIARRHEA. PT CLEANED AND REPOSITIONED. JOSE CARE RENDERED. PT TOLERATED WELL.
[2019-07-23] VITALS (65 sets, daily range): BP systolic 78–129; BP diastolic 37–70
[2019-07-23] MEDS: ONDANSETRON HCL 4 MG/2 ML VIAL IV PRN ×3 (00:34→23:35)
--- NOTE | 2019-07-23 00:48 | NUR ---
N/V PT COMPLAINING OF NAUSEA. ZOFRAN GIVEN. PT HAD SMALL AMOUNT OF BROWN EMESIS.
--- NOTE | 2019-07-23 01:40 | NUR ---
N/V REASSESSMENT PT STATES "NAUSEA HAS DECREASED, I FEEL BETTER." WILL CONTINUE TO ASSESS FO RN/V.
--- NOTE | 2019-07-23 02:00 | NUR ---
VOIDING/ELIMINATION PT PLACED ON BEDPAN. PT CONTINUES TO HAVE DIARRHEA. PT CLEANED AND REPOSITIONED. JOSE CARE RENDERED. PT TOLERATED WELL
--- NOTE | 2019-07-23 02:58 | NUR ---
mendez catheter Pt unable to control bladder. Kaity/vaginal area red and painful. Pt educated on benefit/risk of catheter insertion. Pt agreed. Mendez placed with no incident. Urine sample collected for urine culture order.
[2019-07-23] MEDS: NOREPINEPHRINE 8 MG/250ML KIT 250 ML IV SCH ×3 (03:17→23:00)
--- NOTE | 2019-07-23 03:55 | NUR ---
VOIDING/ELIMINATION PT PLACED ON BEDPAN. PT CONTINUES TO HAVE DIARRHEA. PT CLEANED AND REPOSITIONED. JOSE CARE RENDERED. PT TOLERATED WELL
[2019-07-23 04:20] LABS: Potassium 3.1 mmol/L (3.5-5.1)
[2019-07-23 04:29] LABS: BUN/Creatinine Ratio 7.7; Calcium 6.7 mg/dL (8.5-10.1)
[2019-07-23 04:48] LABS: Urine Amorphous Crystal FEW /hpf (None Seen); Urine Bacteria FEW /hpf (None Seen); Urine Blood TRACE /uL (Negative); Urine Hyaline Cast MANY /lpf (0 - 2); Urine Mucus FEW (None Seen); Urine Specific Gravity 1.011 (1.001-1.035); Urine WBC 3 /hpf (0 - 5)
[2019-07-23 05:04] LABS: Creatinine, Urine 166 mg/dL (30.0-125.0); Sodium Urine 18 mmol/L (40-220)
[2019-07-23] MEDS: PIPERACILLIN-TAZOB 2.25GM 50 ML IV SCH ×3 (06:01→23:06)
[2019-07-23] MEDS: metroNIDAZOLE 500MG/100ML 100 ML IV SCH ×3 (06:01→23:06)
--- NOTE | 2019-07-23 09:30 | NUR ---
PATIENTS MARIYA AT BEDSIDE UPDATED ON STATUS THROUGHOUT THE NIGHT.
--- NOTE | 2019-07-23 10:02 | NUR ---
PATIENTS SISTER DORITA CALLED FOR UPDATE, PROVIDED PASSWORD. UPDATED ON STATUS THROUGHOUT THE NIGHT AND PLAN OF CARE
[2019-07-23] MEDS: prednisoLONE ACETATE 1% OPTH SUSP 5ML EACHEYE SCH ×2 (10:08→22:00)
--- NOTE | 2019-07-23 11:00 | NUR ---
DARK BROWN/ BLACK EMESIS PATIENT HAD 1 EPISODE OF DARK BROWN, COFFEE COLORING EMESIS, APPROX 75ML. INSTRUCTED PATIENT STRICT NPO STARTING NOW AND WILL NOTIFY MD. PATIENT STATED SHE HAS BEEN HAVING EMESIS LOOKING LIKE THIS SINCE STARTED NEW PULMONARY HTN MEDICATION
[2019-07-23] MEDS ORDERED: VANCOMYCIN HCL 125MG/5ML ORAL SOL PO SCH (13:30)
[2019-07-23] MEDS: PANTOPRAZOLE 40 MG TAB PO SCH ×2 (13:30→23:06)
--- NOTE | 2019-07-23 13:45 | NUR ---
DR COLEMAN AT BEDSIDE UPDATED ON CURRENT STATUS, MD DISCUSSED PLAN OF CARE WITH PATIENT AND PATIENTS . NEW ORDERS RECEIVED
[2019-07-23 14:29] LABS: Basophils # (auto) 0 uL; Basophils % (auto) 0.4 % (0.0-2.0); Eosinophils # (auto) 0.2 uL; Eosinophils % (auto) 1.8 % (0.0-7.0); Hematocrit 42.2 % (36.0-46.0); Hemoglobin 14.1 g/dL (12.2-16.2); Lymphocytes % (auto) 8.8 % (10.0-50.0); Mean Corpuscular Hemoglobin 32.6 pg (28.0-32.0); Mean Corpuscular Hgb Conc. 33.3 g/dL (32.0-36.0); Monocytes # (auto) 1.3 uL; Monocytes % (auto) 10.6 % (0.0-12.0); Neutrophils # (auto) 9.4 uL; Neutrophils % (auto) 78.4 % (37.0-80.0); Nucleated Red Blood Cells % 0.2 %; Platelet Count (auto) 245 10^3/uL (140-450); Red Blood Cells 4.31 10^6/uL (4.0-5.20); Red Cell Distribution Width 15.5 % (11.8-14.3)
[2019-07-23] MEDS: DOPamine 1600MCG/ML D5W 250 ML IV SCH ×2 (14:52→23:08)
--- NOTE | 2019-07-23 15:10 | NUR ---
COFFEE GROUND EMESIS PATIENT HAD ANOTHER EPISODE OF COFFEE GROUND EMESIS. APPROX 100CC. ZOFRAN ALREADY ADMINISTERED. WILL NOTIFY
[2019-07-23] MEDS ORDERED: PROMETHAZINE HCL 25 MG/ML 1ML IV PRN (16:00)
[2019-07-23] MEDS: POTASSIUM CHL 20MEQ/100ML 100 ML IV SCH ×2 (16:10→18:00)
--- NOTE | 2019-07-23 16:34 | NUR ---
SPOKE WITH DR SIDDIQUI UPDATED ON STOOL RESULTS. NEW ORDERS RECEIVED
--- NOTE | 2019-07-23 16:37 | NUR ---
PICC RN AT BEDSIDE
[2019-07-23] MEDS: LOPERAMIDE 2 MG/10ml ORAL soln PO SCH (16:45)
--- NOTE | 2019-07-23 17:10 | NUR ---
PICC line placement Patient/Patient significant other educated on need for PICC line placement. All risks and benefits explained and all questions and concerns addressed prior to procedure. Noted past medical history and allergies with no contraindications. INR and Plt counts within acceptable range. 5 fr PICC line inserted via right basilic vein using [employer] US and Tip Location System. Sterile technique with maximum barrier precautions utilized. Blood return obtained from each of the 3 lumens and each flushed easily with NS using proper technique. PICC secured with Stat-lock; biodisc and occlusive dressing applied. Stat portable chest x-ray obtained for PICC tip placement. *Baseline Arm Circumference 37 cm. Internal length 47 cm. External length 0 cm. PICC lot #[id number]
[2019-07-23] MEDS ORDERED: LIDOCAINE 1% (LOCAL ANESTH.) PF 5ml SDV ID ONE (17:15)
--- NOTE | 2019-07-23 17:23 | NUR ---
Okay to use PICC line Xray completed and reviewed. Elizabet WEBER notified.
[2019-07-23] MEDS: SODIUM CHLORIDE 0.9% 1,000 ML IV SCH (17:45)
--- NOTE | 2019-07-23 19:30 | NUR ---
CARE ASSUMED. ASSESSMENT: ALERT AND ORIENTED BUT VERY SLEEPY, STATES PHENERGAN MADE HER VERY GROGGY. MOVES ALL EXTREMITIES, WITH GENERALIZED WEAKNESS AND WEIGHT. STATES NAUSEA IMPROVED. CONTINUES TO BURP ABDOMEN LARGE, (+) BOWEL SOUNDS, CONTINUES TO HAVE DIARRHEA. POOR APPETITE TODAY. CARDIAC - ATRIAL FIBRILLATION, 109, SBP 110'S, CONTINUES ON LEVOPHED AT 15 MCG/MIN AND DOPAMINE AT 3 MCG/KG/MIN. BOTH INFUSING THRU PICC LINE TO PATRIA. IV #20 TO RFA INTACT. LUNGS CLEAR BILATERALLY, SATS 97% ON 3L/NC ORTEGA CATH - WITH YELLOW, CLOUDY URINE. SKIN - CELLULITIS TO BLE, 2+ NON PITTING EDEMA. RADIAL AND PEDAL PULSES 2+ BILATERALLY.
--- NOTE | 2019-07-23 21:32 | NUR ---
BM - LARGE LIQUID, BROWN STOOL , BED FRAIRE USED. DIFFICULTY TURNING, PT. SHORT OF BREATH, AND FACE DUSKY.
[2019-07-23] MEDS: SODIUM CHLOR 0.9% PF (SALINE LOCK) 10ML VIAL/SYR IV SCH (22:00)
--- NOTE | 2019-07-23 22:00 | NUR ---
PICC LINE DRESSING SOLIED WITH BLOOD, DRESSING CHANGED. IV SITE TO RAC AREA, RED, EDEMATOUS AND TENDER, NO IVF THRU THIS PORT AT THIS TIME. IV SITE DISCONTINUED.
--- NOTE | 2019-07-23 23:35 | NUR ---
EMESIS - 150CC COFFEE GROUND, ZOFRAN 4 MG IV GIVEN.
[2019-07-24] VITALS (74 sets, daily range): BP systolic 88–134; BP diastolic 37–70
[2019-07-24 04:38] LABS: Basophils # (auto) 0 uL; Basophils % (auto) 0.3 % (0.0-2.0); Eosinophils # (auto) 0.1 uL; Hematocrit 41.7 % (36.0-46.0); Lymphocytes # (auto) 0.8 uL; Lymphocytes % (auto) 7.8 % (10.0-50.0); Mean Corpuscular Hemoglobin 32.7 pg (28.0-32.0); Mean Corpuscular Hgb Conc. 33.6 g/dL (32.0-36.0); Mean Corpuscular Volume 97.1 fL (80.0-100.0); Monocytes # (auto) 0.9 uL; Monocytes % (auto) 8.8 % (0.0-12.0); Neutrophils # (auto) 8.1 uL; Neutrophils % (auto) 82.1 % (37.0-80.0); Nucleated Red Blood Cells % 0.1 %; Platelet Count (auto) 186 10^3/uL (140-450); Red Cell Distribution Width 15.7 % (11.8-14.3); White Blood Cell 9.9 10^3/uL (4.4-10.8)
[2019-07-24 04:47] LABS: Calcium 6.8 mg/dL (8.5-10.1)
[2019-07-24 04:51] LABS: BUN/Creatinine Ratio 10.2
[2019-07-24 05:03] LABS: Potassium 2.9 mmol/L (3.5-5.1)
--- NOTE | 2019-07-24 05:30 | NUR ---
BED BATH, COMPLETE LINEN CHANGED
[2019-07-24] MEDS: metroNIDAZOLE 500MG/100ML 100 ML IV SCH (05:41)
[2019-07-24] MEDS: SODIUM CHLORIDE 0.9% 1,000 ML IV SCH ×3 (05:41→21:06)
[2019-07-24] MEDS: POTASSIUM CHL 20MEQ/100ML 100 ML IV SCH ×2 (05:52→06:46)
--- NOTE | 2019-07-24 06:00 | NUR ---
LARGE, LIQUID, BROWN STOOL, JOSE CARE DONE, OINTMENT APPLIED.
[2019-07-24] MEDS: DOPamine 1600MCG/ML D5W 250 ML IV SCH ×2 (06:46→16:54)
[2019-07-24] MEDS: PIPERACILLIN-TAZOB 2.25GM 50 ML IV SCH (06:46)
[2019-07-24] MEDS: NOREPINEPHRINE 8 MG/250ML KIT 250 ML IV SCH ×2 (06:48→19:38)
[2019-07-24] MEDS: LOPERAMIDE 2 MG/10ml ORAL soln PO SCH (10:00)
[2019-07-24] MEDS: SODIUM CHLOR 0.9% PF (SALINE LOCK) 10ML VIAL/SYR IV SCH ×2 (10:21→22:00)
[2019-07-24] MEDS: PANTOPRAZOLE 40 MG TAB PO SCH ×2 (10:21→21:06)
[2019-07-24] MEDS: prednisoLONE ACETATE 1% OPTH SUSP 5ML EACHEYE SCH ×2 (10:21→21:19)
--- NOTE | 2019-07-24 11:54 | NUR ---
DR SIDDIQUI AT BEDSIDE
[2019-07-24] MEDS ORDERED: DIPHENOXYLATE W/ATROPINE 2.5 MG TAB PO SCH (12:00)
[2019-07-24] MEDS ORDERED: GASTROGRAFIN 120 ML SOL ONE (12:09)
[2019-07-24] MEDS: ONDANSETRON HCL 4 MG/2 ML VIAL IV PRN (12:25)
--- NOTE | 2019-07-24 14:33 | NUR ---
NUTRITION ASSESSMENT NOTES Please refer to link notes of nutrition screen form filed under the intervention section of the plan of care for further details. Est. Needs: 1600 kcal to 1950 kcal (20-25 kcal/kgAdBW: 79 kg), 55 gms to 66 gms pro (1.0-1.2 gms/kgBW). Will continue to monitor pertinent labs and reassess nutrient need prn Thank you. Addendum: 07/24/19 at [address] Amended: Links added.
[2019-07-24] MEDS: SUCRALFATE 1 GM/10 ML ORAL SUSP PO SCH ×3 (15:22→21:06)
[2019-07-24] MEDS: DIPHENOXYLATE W/ATROPINE 2.5 MG TAB PO PRN (16:05)
--- NOTE | 2019-07-24 19:50 | NUR ---
opening shift note assumed care of patient, alert and oriented x4, denies pain or discomfort. NC 2L at 95% respirations even and unlabored, lung sounds clear and diminished in the bases. afib at 82 bpm on alarm security or surveillance monitor. patrick picc line running, levophed at 9 mcg/min, dopamine at 2 mcg/kg/min, and ns at 100 ml/hr. mendez catheter patent and draining yellow urine to gravity. denies n/v at this time, bowel sounds present. skin intact, bilateral lower extremities with hyperpigmentation. bed in lowest locked position, call pascual in reach, pt educated to use call pascual for any assistance. pt in full view of the nurses station. will continue to monitor
--- NOTE | 2019-07-24 19:55 | NUR ---
GI dark green liquid bm using bed batista. cleaned and skin assessed.
--- NOTE | 2019-07-24 20:45 | NUR ---
consent pt signed consents for planned EGD in am. consents placed in chart.
[2019-07-25] VITALS (95 sets, daily range): BP systolic 82–134; BP diastolic 42–96
[2019-07-25] MEDS: DOPamine 1600MCG/ML D5W 250 ML IV SCH ×3 (01:47→19:33)
[2019-07-25 06:23] LABS: BUN/Creatinine Ratio 13.9; Calcium 6.9 mg/dL (8.5-10.1)
[2019-07-25 06:27] LABS: Potassium 2.1 mmol/L (3.5-5.1)
--- NOTE | 2019-07-25 06:41 | NUR ---
paged dr alex regarding potassium level of 2.1. awaiting call back.
[2019-07-25] MEDS: SUCRALFATE 1 GM/10 ML ORAL SUSP PO SCH ×4 (07:00→22:17)
[2019-07-25] MEDS: SODIUM CHLORIDE 0.9% 1,000 ML IV SCH ×2 (07:41→19:45)
[2019-07-25] MEDS ORDERED: POTASSIUM CHL 20MEQ/100ML 100 ML IV ONE (07:45)
[2019-07-25] MEDS: POTASSIUM CHL 20MEQ/100ML 100 ML IV SCH ×3 (08:28→23:17)
[2019-07-25] MEDS ORDERED: POTASSIUM EFFERVESENT TAB 25 MEQ PO ONE (09:15)
[2019-07-25] MEDS: prednisoLONE ACETATE 1% OPTH SUSP 5ML EACHEYE SCH ×2 (10:06→22:17)
[2019-07-25] MEDS: SODIUM CHLOR 0.9% PF (SALINE LOCK) 10ML VIAL/SYR IV SCH ×2 (10:07→22:17)
[2019-07-25] MEDS ORDERED: SODIUM CHLORIDE LOCK 10 ML ONE (10:19)
[2019-07-25] MEDS ORDERED: diphenhdrAMINE HCL 50 MG/1 ML VL ONE (10:19)
[2019-07-25] MEDS ORDERED: fentaNYL CITRATE 100 MCG/2 ML VL ONE (10:19)
[2019-07-25] MEDS ORDERED: MIDAZOLAM HCL 5 MG/ML-1ML VIAL ONE (10:19)
[2019-07-25] MEDS ORDERED: EPINEPHrine HCL 1 MG/10 ML SYRG ONE (10:20)
--- NOTE | 2019-07-25 10:40 | NUR ---
AT BEDSIDE: Dr. Gibbons at bedside, discussed K level and replacement that was given. States that he will order additional replacement therapy.
--- NOTE | 2019-07-25 11:00 | NUR ---
OR AT BEDSIDE: OR crew at bedside for EGD. Patient tolerated procedure well, no new orders.
--- NOTE | 2019-07-25 11:00 | NUR ---
WOUND CARE NOTE: IN TO SEE PATIENT FOR SKIN INTEGRITY AT THIS TIME. PATIENT ADMITTED TO [facility] WITH DIAGNOSIS OF HYPOTENSION, DIARRHEA. CURRENT EMERALD SCORE IS 15. PATIENT IS ABLE TO ASSIST WITH HER TURNING/REPOSITIONING. PATIENT IS NOTED TO HAVE TAUT BILATERAL LOWER EXTREMITIES, WITH ERYTHEMA NOTED TO THE ANTERIOR MID ALICEA AREAS. THERE IS NO OPEN OR DRAINING AREAS NOTED. PATIENT STATES THAT SHE HAS HISTORY WITH CHRONIC VENOUS INSUFFICIENCY. ELEVATED BOTH LEGS UP ONTO PILLOWS TO HELP WITH EDEMA CONTROL. WOUND CARE RECOMMENDATIONS: FREQUENT TURN SCHEDULE Q 2 HOURS, PRN CONDITION PERMITS, WITH PRESSURE REDISTRIBUTION USING PILLOWS/WEDGES, ELEVATION OF BLE FOR EDEMA CONTROL, BID/PRN APPLICATION WITH MOISTURE BARRIER CREAM, COVERING UPPER MEDIAL SACRUM WITH OPTIFOAM GENTLE SACRAL DRESSING PREVENTATIVE, SKIN/WOUND CARE PLAN, CONTINUED MONITORING BY WOUND CARE TEAM.
[2019-07-25] MEDS ORDERED: POTASSIUM CHL 20 Meq TABLET PO ONE ×3 (11:15→16:00)
[2019-07-25] MEDS: PANTOPRAZOLE 40 MG TAB PO SCH ×2 (12:22→22:17)
[2019-07-25] MEDS ORDERED: LOPERAMIDE 1 MG/7.5 ML PO SCH (13:15)
[2019-07-25] MEDS: LOPERAMIDE 2 MG/10ml ORAL soln PO SCH (13:59)
[2019-07-25] MEDS ORDERED: LOPERAMIDE 2 MG/10ml ORAL soln PO SCH (14:00)
[2019-07-25] MEDS: NOREPINEPHRINE 8 MG/250ML KIT 250 ML IV SCH (14:03)
--- NOTE | 2019-07-25 19:00 | NUR ---
OPENING NOTE ASSUMED CARE OF PATIENT AT THIS TIME. REPORT RECEIVED FROM DAY SHIFT RN. POC REVIEWED. HEAD TO TOE ASSESSMENT COMPLETE, SEE INTERVENTIONS SPREADSHEET FOR COMPLETE DETAILS. RECEIVED PT ALERT AND ORIENTED X4. PT ON LEVO AT 4.5 MCG AND DOPAMINE AT 2MCG. PT HAS RIGHT UPPER ARM PICC, IV SITE BENIGN. PT DENIES PAIN AT THIS TIME. VSS. BED LOCKED AND IN LOWEST POSITION, SAFETY PRECAUTIONS IN PLACE. WILL MONITOR PT CAREFULLY.
--- NOTE | 2019-07-25 19:45 | NUR ---
elimination Pt placed on bed batista. Pt had small, green, jelly like and liquid BM. pt cleaned and barrier cream applied to azul area. Pt tolerated well. Pt repositioned for safety and comfort. Will continue with care.
[2019-07-25 22:34] LABS: BUN/Creatinine Ratio 16.3; Calcium 6.7 mg/dL (8.5-10.1)
[2019-07-25 22:37] LABS: Potassium 2.4 mmol/L (3.5-5.1)
--- NOTE | 2019-07-25 22:57 | NUR ---
KA 2.4. HOSPITALIST PAGED TO NOTIFY OF CRITICAL RESULTS.
--- NOTE | 2019-07-25 23:16 | NUR ---
HOSPITALIST RETURNED PAGE. ORDERS RECEIVED FOR 60 MEQ KA IV. WILL CARRY OUT ORDER.
[2019-07-26] VITALS (92 sets, daily range): BP systolic 88–126; BP diastolic 40–71
[2019-07-26] MEDS: DOPamine 1600MCG/ML D5W 250 ML IV SCH ×3 (01:05→19:00)
[2019-07-26] MEDS: POTASSIUM CHL 20MEQ/100ML 100 ML IV SCH ×8 (01:05→23:47)
[2019-07-26] MEDS: SODIUM CHLORIDE 0.9% 1,000 ML IV SCH ×3 (03:07→21:59)
[2019-07-26] MEDS: SUCRALFATE 1 GM/10 ML ORAL SUSP PO SCH ×4 (06:41→21:57)
[2019-07-26 07:23] LABS: BUN/Creatinine Ratio 18.8
[2019-07-26 07:36] LABS: Calcium 5.9 mg/dL (8.5-10.1)
--- NOTE | 2019-07-26 09:25 | NUR ---
AT BEDSIDE: Dr. Gibbons at bedside, updated on current lab values. Orders received for potassium replacement.
[2019-07-26] MEDS: prednisoLONE ACETATE 1% OPTH SUSP 5ML EACHEYE SCH ×2 (10:25→21:57)
[2019-07-26] MEDS: SODIUM CHLOR 0.9% PF (SALINE LOCK) 10ML VIAL/SYR IV SCH ×2 (10:26→21:58)
[2019-07-26] MEDS: PANTOPRAZOLE 40 MG TAB PO SCH ×2 (10:26→21:57)
--- NOTE | 2019-07-26 10:52 | NUR ---
PHARMACY CALL: Received phone call from pharmacist Darlene, she states that she is concerned about the quantity of potassium replacement ordered for patient. Informed Darlene that orders were received from nephrology, who is aware of renal function. Also informed her that the patient has had diarrhea for several days. Darlene recommends adding Mg level to labs as the level was low on the previous draw. Mg level added to a.m. labs per protocol. Will await results.
[2019-07-26] MEDS: MAGNESIUM SULFATE 1GM/100ML 100 ML IV SCH ×2 (11:48→12:56)
--- NOTE | 2019-07-26 12:40 | NUR ---
Nutrition Follow-up Notes Wt.: 152.2 kg Pt was sleeping with no family by bedside. per pt records pt with gastris and diarr and nausea improving. pt with no distress noted per nursing currently on renal std diet with inadequate PO of 50% x 3 per RN doc Est. Needs: 1600 kcal to 1950 kcal (20-25 kcal/kgAdBW: 79 kg), 55 gms to 66 gms pro (1.0-1.2 gms/kgBW). Will continue to monitor pertinent labs and reassess nutrient need prn Labs: BUN 40 H, CREAT 1.83 H, GLU 153 H, CA 5.9 L, K 2.7 L. Skin: Yuniel scale 15 mod risk, skin intact per rn advice. GI: Pt had 2 BM today per rn advice. PES: Partially resolved: Increased nutrient needs r/t current/chronic medical condition aeb Gastroenteritis, acute,Diarrhea in adult patient,Dehydration,Ileus,mod hypoalbuminemia, on Clear Liquid diet Altered nutrition related lab values r/t current/chronic medical condition aeb hyperglycemia, hypocapnia, hypokalemia, hyperchloremia, elev. renal labs, hypocalcemia and mod hypoalbuminemia Obesity r.t excessive PO intake aeb 281% IBW, BMI 57.9 kg/m2 and increased body adiposity Will continue to monitor PO intake, skin status, pertinent labs and weight trend. F/u in 3-5 days. Rec.: 1.) Consider Renal Specific: 60 gms pro, 2 gms, Na diet as RFT elev. 2.) If Albumin continues trending down with improved renal labs, consider Prostat 1 pkt BID. 3.) Continue close supervision and feeding assistance prn during meals. 4.) Refer to RD for further nutrition educ. and weight monitoring upon discharge. 5.) Continue current plan of care.
--- NOTE | 2019-07-26 14:00 | NUR ---
AT BEDSIDE; Dr. Alfredo at bedside. Addressed patient's pulmonary hypertension medications, Dr. Alfredo states they will be re-started when patient's blood pressure remains stable. Informed him that patient was titrated off of Levo and has maintained blood pressure well. States to continue with ICU level care overnight and that he will downgrade patient tomorrow if she remains stable.
[2019-07-26] MEDS ORDERED: POTASSIUM CHLORIDE 80 MEQ, LIDOCAINE 1% (LOCAL ANESTH.) 6 ML in SODIUM CHL 0.9% 500 ML IV ONE (14:15)
--- NOTE | 2019-07-26 14:42 | NUR ---
assessment Patient is a 68 year old female who is alert and oriented. Prior to admission patient lived home with her Jairo and functioned with his assistance. Patients post discharge needs to be determined prior to discharge and after downgrade from ICU. Addendum: 07/26/19 at 1443 by Pati CARTY Amended: Links added.
[2019-07-26] MEDS: NOREPINEPHRINE 8 MG/250ML KIT 250 ML IV SCH (17:45)
[2019-07-26 19:07] LABS: BUN/Creatinine Ratio 18.8
[2019-07-26 19:12] LABS: Calcium 5.9 mg/dL (8.5-10.1)
--- NOTE | 2019-07-26 20:00 | NUR ---
ADMITTED WITH DIARRHEA , NAUSEA AND HYPOTENSION. OFF LEVOPHED MID MORNING TODAY. DOPAMINE 2 MCG/KG/MIN. NEW TUBING HUNG. ALERT. ORIENTED. OBESE. HELPS TURN SELF. DOESN'T LIKE TURNING. LEDY. SPEECH CLEAR. RHYTHM: ATRIAL FIB RATE 102. NO ABERRANCIES. SBP STABLE. NO FEVER. IV ACCESS RIGHT ARM PICC LINE WITH CURRENT DRESSING. ECCHYMOSIS NOTED AT SITE. LUNGS CLEAR. 2LNP. NO DYSPNEA. RR 22. NONPRODUCTIVE COUGH. AT APPROXIMATELY 30% OF HER DINNER. THAT WAS BETTER THAN LUNCH. NO NAUSEA. HAS LOWER ABDOMINAL CRAMPING. REQUESTED TO BE PUT ON THE BEDPAN. 50CC OF DARK GREEN LIQUID. ORTEGA IN PLACE DRAINING CLEAR YELLOW LIQUID TO DOWN DRAIN BAG. 250 CC OF URINE. GENERALIZED PITTING EDEMA IN BOTH LEGS. BILATERALLY, MID CALF THERE IS A MODERATE AMOUNT OF REDNESS AND DARKNESS. PULSES IN BOTH FEET ARE WEAK BUT PALPABLE. FEET ARE COOL. HAD LOMOTIL TODAY. UNABLE TO REMEMBER IF SHE GOT THE IMMODIUM. MAINTENANCE FLUID NORMAL SALINE AT 100CC/HR. POTASSIUM LOW TODAY. RECEIVING KCL REPLACEMENT. CALL PLACED TO DR MCCORMACK. MAGNESIUM 1.4 DR SHARMA RETURNED THE CALL AND GAVE ME AN ORDER FOR MAGNESIUM 1 GM. HE WAS OKAY WITH THE KCL ORDER FOR REPLACEMENT THIS EVENING. REVIEWED THE BUN AND CREATININE WITH HIM. LIKES TO CHEW ON ICE. Z GUARD TO BUTTOCKS
[2019-07-26] MEDS ORDERED: MAGNESIUM SULFATE 1GM/100ML 100 ML IV ONE ×2 (20:41→20:45)
--- NOTE | 2019-07-26 22:00 | NUR ---
REPOSITIONED TO LEFT SIDE USING WEDGE. EYE GTTS GIVEN. SWALLOWS WELL. DENIES PAIN, NAUSEA OR DIAPHORESIS. IV SITE SHOWS NO REDNESS OR SWELLING.
[2019-07-27] VITALS (34 sets, daily range): BP systolic 89–138; BP diastolic 44–91
--- NOTE | 2019-07-27 | NUR ---
REPOSITIONED TO HER BACK. DENIES PAIN. DENIES NAUSEA.ATRIAL FIB. GENERALIZED EDEMA. OBESE. IV PATENT. IV S PATENT.
--- NOTE | 2019-07-27 01:57 | NUR ---
POTASSIUM AND MAGNESIUM REPLACEMENT IN.
--- NOTE | 2019-07-27 04:00 | NUR ---
PATIENT DID NOT FALL ASLEEP TILL 0230. DID NOT EVEN WAKE UP FOR THE LAB DRAW. ATRIAL FIB. VSS. SBP HAS ALWAYS STAYED ABOVE 90. LUNGS CLEAR. NO DYSPNEA OR NAUSEA. ONLY ONE STOOL TONIGHT.
[2019-07-27 04:55] LABS: Calcium 6.1 mg/dL (8.5-10.1); Potassium 3.3 mmol/L (3.5-5.1)
[2019-07-27 04:59] LABS: BUN/Creatinine Ratio 19.4
--- NOTE | 2019-07-27 05:12 | NUR ---
K 3.3 AND MAG IS 1.3. CALL PLACED TO DR COBOS EX CHANGE.
[2019-07-27] MEDS: SUCRALFATE 1 GM/10 ML ORAL SUSP PO SCH ×4 (06:31→21:58)
[2019-07-27 07:32] LABS: Potassium 2.7 mmol/L (3.5-5.1)
--- NOTE | 2019-07-27 08:30 | NUR ---
PATIENTS MARIYA AT BEDSIDE
[2019-07-27] MEDS: POTASSIUM CHL 20MEQ/100ML 100 ML IV SCH ×4 (08:35→15:59)
--- NOTE | 2019-07-27 09:00 | NUR ---
DR SALAZAR AT BEDSIDE NEW ORDERS PLACED
[2019-07-27] MEDS: SODIUM CHLOR 0.9% PF (SALINE LOCK) 10ML VIAL/SYR IV SCH ×2 (10:00→21:57)
[2019-07-27] MEDS: PANTOPRAZOLE 40 MG TAB PO SCH ×2 (10:18→21:58)
[2019-07-27] MEDS: LOPERAMIDE 2 MG/10ml ORAL soln PO SCH (10:19)
[2019-07-27] MEDS: prednisoLONE ACETATE 1% OPTH SUSP 5ML EACHEYE SCH ×2 (10:20→21:57)
[2019-07-27] MEDS: MAGNESIUM SULFATE 1GM/100ML 100 ML IV SCH ×2 (10:20→11:00)
--- NOTE | 2019-07-27 10:20 | NUR ---
DR SIDDIQUI AT BEDSIDE DISCUSSED PLAN OF CARE WITH PATIENT AND PATIENTS . NO NEW ORDERS AT THIS TIME
--- NOTE | 2019-07-27 11:15 | NUR ---
TACHYCARDIA PATIENTS HEART RATE INCREASED TO 150-160BPM AFIB. PATIENT DENIES PAIN OR NAUSEA BUT STATES FEELS BLOATED. STOPPED DOPAMINE. WILL CONTINUE TO MONITOR CLOSELY. Q 15 MINUTE BLOOD PRESSURES
[2019-07-27] MEDS: SODIUM CHLORIDE 0.9% 1,000 ML IV SCH ×2 (12:00→21:57)
--- NOTE | 2019-07-27 13:00 | NUR ---
DR COLEMAN AT BEDSIDE DISCUSSED PLAN OF CARE WITH PATIENT AND PATIENTS . NEW ORDERS PLACED
[2019-07-27] MEDS: DOPamine 1600MCG/ML D5W 250 ML IV SCH (14:33)
--- NOTE | 2019-07-27 17:24 | NUR ---
REPORT RECEIVED RECEIVED REPORT FROM ICU NURSE MARTHA WEBER
--- NOTE | 2019-07-27 17:30 | NUR ---
BED ASSIGNMENT 268A- REPORT GIVEN TO DUC WEBER
--- NOTE | 2019-07-27 17:55 | NUR ---
PATIENT TRANSFERRED TO FLOOR BED, CONNECTED TO PORTABLE TELEMETRY BOX. CONNECTED TO PORTABLE OXYGEN. TRANSFERRED WITH ALL BELONGINGS, AT BEDSIDE AND GIVEN ROOM ASSIGNMENT. PATIENT STABLE AT TIME OF TRANSFER
--- NOTE | 2019-07-27 17:55 | NUR ---
PATIENT ARRIVED ON UNIT PATIENT BROUGHT TO UNIT ON MEDICAL BED WITH AT BEDSIDE. PATIENT IS A&OX4 WITH SOME ABDOMINAL UPSET. BED IS IN LOW POSITION, BRAKES APPLIED AND BED RAILS UP X2 AND CALL LIGHT WITHIN REACH. PATIENT AND SPOUSE EDUCATED ON UNIT ORIENTATION, POC AND CALL LIGHT USE PRN, PATIENT AND SPOUSE VERBALIZED UNDERSTANDING. CONTINUING TO MONITOR PATIENT Q1 HR AND PRN
[2019-07-27] MEDS ORDERED: LOPERAMIDE HCL 2 MG CAP ONE (21:18)
[2019-07-27] MEDS: DIPHENOXYLATE W/ATROPINE 2.5 MG TAB PO PRN (21:59)
[2019-07-28 05:00] VITALS: BP 114/60
[2019-07-28] MEDS: SUCRALFATE 1 GM/10 ML ORAL SUSP PO SCH ×4 (06:22→21:51)
[2019-07-28] MEDS: SODIUM CHLORIDE 0.9% 1,000 ML IV SCH (06:23)
[2019-07-28 07:10] LABS: Calcium 6.6 mg/dL (8.5-10.1); Potassium 3.5 mmol/L (3.5-5.1)
--- NOTE | 2019-07-28 08:00 | NUR ---
Opening Shift Note Assumed care of patient, awake, alert, and oriented x4. No S/S of distress/SOB or pain. PICC in right upper arm and is asymptomatic, intact, patent, and infusing normal saline at 100 mL/hour. Bed is locked and in lowest position and call light is within reach. Instructed on POC and to call for assist PRN, and patient verbalized understanding. Will continue to monitor for changes Q1hr and PRN.
[2019-07-28 09:00] VITALS: BP 99/42
[2019-07-28] MEDS: LOPERAMIDE 2 MG/10ml ORAL soln PO SCH (10:48)
[2019-07-28] MEDS: PANTOPRAZOLE 40 MG TAB PO SCH ×2 (10:48→21:50)
[2019-07-28] MEDS: prednisoLONE ACETATE 1% OPTH SUSP 5ML EACHEYE SCH ×2 (10:48→21:51)
[2019-07-28] MEDS ORDERED: MAGNESIUM SULFATE 1GM/100ML 100 ML IV ONE (11:00)
[2019-07-28] MEDS ORDERED: POTASSIUM CHL 20MEQ/100ML 100 ML IV ONE (11:00)
--- NOTE | 2019-07-28 12:00 | NUR ---
Dr. Parker, [employer] Rep[employer], at bedside. New orders received.
--- NOTE | 2019-07-28 12:10 | NUR ---
Patient refused IV potassium order of 20 meQ.
[2019-07-28] MEDS: SODIUM CHLOR 0.9% PF (SALINE LOCK) 10ML VIAL/SYR IV SCH ×2 (12:27→21:51)
[2019-07-28 13:00] VITALS: BP 123/53
[2019-07-28] MEDS: POTASSIUM CHLORIDE 10 MEQ in SOD CHL 0.45% 1,000 ML IV SCH (14:28)
--- NOTE | 2019-07-28 15:00 | NUR ---
Physical Therapy at bedside.
[2019-07-28 17:00] VITALS: BP 114/56
--- NOTE | 2019-07-28 19:40 | NUR ---
RECEIVED PATIENT FROM DAY SHIFT RN. PATIENT RESTING IN BED. NO S/S OF DISTRESS NOTED. DENIED PAIN FOR NOW. ORTEGA CATH IN PLACE DRAINING GRAVITY. ASSISTED PATIENT TO BEDPAN FOR BM. PATIENT TOLERATED WELL. POC INSTRUCTED AND ENCOURAGED PATIENT TO CALL FOR DRESSMAKER HELPER IF NEEDED. BED IN LOWEST POSITION WITH SIDE RAILS UP X 2. CALL ARELLANO WITHIN REACH. ALARM ON. CONTINUE TO MONITOR FOR CHANGES Q1H AND PRN.
[2019-07-28 21:39] VITALS: BP 121/71
[2019-07-28] MEDS: DIPHENOXYLATE W/ATROPINE 2.5 MG TAB PO PRN (21:51)
--- NOTE | 2019-07-28 22:10 | NUR ---
LOMOTIL ADMINISTERED ORDERED FOR LOOSE BM. CONTINUE TO MONITOR.
[2019-07-29] MEDS: POTASSIUM CHLORIDE 10 MEQ in SOD CHL 0.45% 1,000 ML IV SCH (01:58)
--- NOTE | 2019-07-29 03:41 | NUR ---
PATIENT SLEEPING. NO S/S OF DISTRESS NOTED. CONTINUE CARE.
[2019-07-29 04:57] VITALS: BP 121/69
[2019-07-29] MEDS: SUCRALFATE 1 GM/10 ML ORAL SUSP PO SCH ×4 (06:14→21:41)
[2019-07-29 06:47] LABS: Calcium 6.6 mg/dL (8.5-10.1); Potassium 3.2 mmol/L (3.5-5.1)
[2019-07-29 06:49] LABS: BUN/Creatinine Ratio 13.8
--- NOTE | 2019-07-29 07:45 | NUR ---
Opening Patient in bed, waking up, bed in lowest position, call light within reach. No distress noted at this time. Per the notes from [place] 07/27 it was a possible discharge patient, however no order written. Blood cultures negative X2 stool occult negative c diff negative mrsa nares negative UA few bacteria, trace of blood current potassium is 3.2 after supplement yesterday 07/28 current magnesium is 1.3 07/27 last drawn nephro attempted to replaced electrolytes 07/28 orders (Keith) GI (ARTUR) continue care, and signed off 07/27 PT walks patient to doorway per noc nurse will continue to monitor this patient
[2019-07-29] MEDS: POTASSIUM CHLORIDE 20 MEQ in SOD CHL 0.45% 1,000 ML IV SCH ×2 (08:30→12:09)
[2019-07-29] MEDS ORDERED: POTASSIUM CHL 20MEQ/100ML 100 ML IV SCH (08:30)
[2019-07-29 09:00] VITALS: BP 117/65
[2019-07-29] MEDS ORDERED: POTASSIUM EFFERVESENT TAB 25 MEQ PO ONE ×2 (09:15)
[2019-07-29] MEDS: PANTOPRAZOLE 40 MG TAB PO SCH ×2 (09:20→21:39)
[2019-07-29] MEDS: prednisoLONE ACETATE 1% OPTH SUSP 5ML EACHEYE SCH ×2 (09:21→21:42)
[2019-07-29] MEDS: SODIUM CHLOR 0.9% PF (SALINE LOCK) 10ML VIAL/SYR IV SCH ×2 (09:21→21:47)
[2019-07-29] MEDS: LOPERAMIDE 2 MG/10ml ORAL soln PO SCH (10:00)
[2019-07-29] MEDS: DIPHENOXYLATE W/ATROPINE 2.5 MG TAB PO PRN (10:30)
--- NOTE | 2019-07-29 12:25 | NUR ---
MD COLEMAN AWARE OF PATIENTS HEART RATE 140-150s current potassium and magnesium levels
[2019-07-29 13:00] VITALS: BP 124/65
--- NOTE | 2019-07-29 15:06 | NUR ---
Nutrition Follow-up Notes Wt.: 159.3 kg today. Noted 7.1 kg weight gain in last 3 days likely d/t ? fluid retention aeb positive I & Os for past few days. Pt's on oxygen via nasal cannula, asleep, no immediate family member at bedside during rounds this morning. Pt's s/p EGD with Biopsy (07/25/19), of signs of distress noted earlier, currently on Renal Std diet with adequate PO intake aeb 75% ave. consumed meals (x 6) in last 2.5 days. Est. Needs: 1600 kcal to 1950 kcal (20-25 kcal/kgAdBW: 79 kg), 55 gms to 66 gms pro (1.0-1.2 gms/kgBW). Will continue to monitor pertinent labs and reassess nutrient need prn Labs: Na 147 H, K 3.2 L, Cl 118 H, BUN 3 L, Ca 6.6 L, Mg 1.3 L. Skin: Yuniel scale 21, low risk, pt's lower extremity hyperpigmentation per indian trader. GI: Pt had 1 BM yesterday per indian trader. PES: Partially resolved: Increased nutrient needs r/t current/chronic medical condition aeb Gastroenteritis, acute,Diarrhea in adult patient,Dehydration,Ileus,mod hypoalbuminemia, on Clear Liquid diet Altered nutrition related lab values r/t current/chronic medical condition aeb hyperglycemia, hypocapnia, hypokalemia, hyperchloremia, elev. renal labs, hypocalcemia and mod hypoalbuminemia Obesity r.t excessive PO intake aeb 281% IBW, BMI 57.9 kg/m2 and increased body adiposity Will continue to monitor PO intake, skin status, pertinent labs and weight trend. F/u in 3 to 5 days. Rec.: 1.) Consider Cardiac: 2 gms Na, Low Chol, Low Fat diet. 2.) Continue close supervision and feeding assistance prn during meals. 3.) If Albumin continues trending down with improved renal labs, consider Prostat 1 pkt BID. 4.) Refer to RD for further nutrition educ. and weight monitoring upon discharge. 5.) Continue current plan of care.
--- NOTE | 2019-07-29 15:17 | NUR ---
md braxton new orders for magnesium 4 g replacement
[2019-07-29] MEDS: MAGNESIUM SULFATE 1GM/100ML 100 ML IV SCH ×4 (16:00→19:07)
[2019-07-29 16:31] LABS: Magnesium 1.3 mg/dL (1.6-2.6); Potassium 3.4 mmol/L (3.5-5.1)
[2019-07-29 16:45] VITALS: BP 116/60
--- NOTE | 2019-07-29 19:30 | NUR ---
Opening Shift Note Assumed care of patient, awake and alert x4. Patient denies pain at this time. No S/S of distress/shortness of breath noted at this time. Instructed on plan of care and to call for assistance as needed. Bed is locked in lowest position, side rails x 2 are up, call light is within reach, and bed alarm is on.
[2019-07-29] MEDS: ALLOPURINOL 300 MG TAB PO SCH (21:40)
[2019-07-29] MEDS: SOTALOL HCL 80 MG TAB PO SCH (21:40)
[2019-07-29] MEDS: LISINOPRIL 5 MG TAB PO SCH (21:41)
[2019-07-29] MEDS: ATORVASTATIN 20 MG TAB PO SCH (21:41)
[2019-07-29 22:00] VITALS: BP 120/59
[2019-07-29] MEDS: ONDANSETRON HCL 4 MG/2 ML VIAL IV PRN (23:05)
[2019-07-30] MEDS: POTASSIUM CHLORIDE 20 MEQ in SOD CHL 0.45% 1,000 ML IV SCH ×2 (01:22→11:26)
[2019-07-30 04:50] LABS: Chloride 116 mmol/L (98-107); Potassium 3.6 mmol/L (3.5-5.1); Sodium 144 mmol/L (136-145)
[2019-07-30 04:57] LABS: Blood Urea Nitrogen 9 mg/dL (7-18); Calcium 6.5 mg/dL (8.5-10.1); Carbon Dioxide 22 mmol/L (21-32); GFR African American 89 mL/min; GFR Non-African American 73 mL/min; Glucose 104 mg/dL (74-106)
[2019-07-30 05:00] VITALS: BP 116/65
[2019-07-30 05:26] LABS: Anion Gap 6 (5-15)
[2019-07-30] MEDS: SUCRALFATE 1 GM/10 ML ORAL SUSP PO SCH ×4 (06:20→21:26)
[2019-07-30 08:21] VITALS: BP 134/70
[2019-07-30] MEDS ORDERED: MAGNESIUM OXIDE 400 MG TAB PO SCH (10:00)
[2019-07-30] MEDS: PANTOPRAZOLE 40 MG TAB PO SCH ×2 (10:05→21:24)
[2019-07-30] MEDS: ALLOPURINOL 300 MG TAB PO SCH ×2 (10:05→21:24)
[2019-07-30] MEDS: DIPHENOXYLATE W/ATROPINE 2.5 MG TAB PO PRN (10:05)
[2019-07-30] MEDS: RIVAROXABAN 20 MG TAB PO SCH (10:06)
[2019-07-30] MEDS: LISINOPRIL 5 MG TAB PO SCH ×2 (10:06→21:25)
[2019-07-30] MEDS: SOTALOL HCL 80 MG TAB PO SCH ×2 (10:07→21:26)
[2019-07-30] MEDS: SODIUM CHLOR 0.9% PF (SALINE LOCK) 10ML VIAL/SYR IV SCH ×2 (10:08→23:24)
[2019-07-30] MEDS: prednisoLONE ACETATE 1% OPTH SUSP 5ML EACHEYE SCH ×2 (10:19→21:26)
[2019-07-30] MEDS: LOPERAMIDE 2 MG/10ml ORAL soln PO SCH (12:37)
[2019-07-30 12:41] VITALS: BP 128/70
[2019-07-30 16:38] VITALS: BP 100/61
[2019-07-30] MEDS: ATORVASTATIN 20 MG TAB PO SCH (21:25)
[2019-07-30 22:11] VITALS: BP 113/87
[2019-07-31] MEDS: ONDANSETRON HCL 4 MG/2 ML VIAL IV PRN ×2 (00:08→22:30)
--- NOTE | 2019-07-31 04:29 | NUR ---
OPTIFOAM PLACED ON SACRUM Sacrum cleaned with clean soap and water, patted dry, zgaurd applied,and optifoam applied on scarum as preventive measure. Addendum: 07/31/19 at 0431 by KAR SEGURA RN RN OPTIFOAM PLACED ON SACRUM Sacrum cleaned with clean soap and water, patted dry, zgaurd applied,and optifoam applied on sacrum as preventive measure.
[2019-07-31 05:41] VITALS: BP 101/55
[2019-07-31] MEDS: SUCRALFATE 1 GM/10 ML ORAL SUSP PO SCH ×4 (06:50→21:11)
[2019-07-31 07:25] LABS: BUN/Creatinine Ratio 9.6; Calcium 6.7 mg/dL (8.5-10.1); Potassium 3.5 mmol/L (3.5-5.1)
--- NOTE | 2019-07-31 08:20 | NUR ---
PT RESTING IN BED NO DISTRESS NOTED. PT REPORTS NO PAIN AT THIS TIME. SIDE RAILS UP X 2, BED IN LOWEST LOCKED POSITION, CALL LIGHT IN REACH, WILL CONTINUE TO MONITOR.
[2019-07-31 08:45] VITALS: BP 127/61
[2019-07-31] MEDS ORDERED: POTASSIUM EFFERVESENT TAB 25 MEQ GT ONE (09:00)
[2019-07-31] MEDS: ALLOPURINOL 300 MG TAB PO SCH ×2 (09:46→21:11)
[2019-07-31] MEDS: PANTOPRAZOLE 40 MG TAB PO SCH ×2 (09:47→21:10)
[2019-07-31] MEDS: MAGNESIUM OXIDE 400 MG TAB PO SCH (09:48)
[2019-07-31] MEDS: RIVAROXABAN 20 MG TAB PO SCH (09:48)
[2019-07-31] MEDS: FUROSEMIDE 40 MG TAB PO SCH (09:48)
[2019-07-31] MEDS: SOTALOL HCL 80 MG TAB PO SCH ×2 (09:52→21:11)
[2019-07-31] MEDS: SODIUM CHLOR 0.9% PF (SALINE LOCK) 10ML VIAL/SYR IV SCH ×2 (09:53→22:13)
[2019-07-31] MEDS: LISINOPRIL 5 MG TAB PO SCH ×2 (09:54→21:10)
[2019-07-31] MEDS: LOPERAMIDE 2 MG/10ml ORAL soln PO SCH (09:55)
[2019-07-31] MEDS: prednisoLONE ACETATE 1% OPTH SUSP 5ML EACHEYE SCH ×2 (09:55→21:12)
--- NOTE | 2019-07-31 10:54 | NUR ---
pt refused potassium, she reports her mouth is raw from previous potassium. Patient decrease from 4L to 3L to 2L oxygen via nasal cannula, oxygen currently 95% on 2L, nasal cannula, patient tolerating well, at bedside. Signed: 07/31/19 at 1056 by AMILCAR LAWLER RN Addendum: 07/31/19 at 1345 by AMILCAR LAWLER RN PT EDUCATED THAT POTASSIUM IS AN IMPORTANT ELECTROLYTE IMPORTANT FOR HEART HEALTH WITH HER CHF. PT AWARE AND STILL REFUSED MED. Signed: 07/31/19 at 1345 by AMILCAR LAWLER RN
--- NOTE | 2019-07-31 11:18 | NUR ---
patient has erythema in abdominal folds and buttocks. Cleaned both sites, z-nga and antifungal creams applied. patient reports she is able to turn herself. Educated patient to notify nurse if she has difficulty turning to avoid pressure areas. Patient and aware. 300 mL output clear yellow urine noted in mendez. Signed: 07/31/19 at 1124 by AMILCAR LAWLER RN
[2019-07-31 12:45] VITALS: BP 104/61
--- NOTE | 2019-07-31 14:50 | NUR ---
RECEIVED CALL FROM [facility], PT HEART RATE 164. CHECKED ON PATIENT. PT JUST FINISHED AMBULATING 5 FT WITH CRUTCHES AND PHYSICAL THERAPY. PT NOW SITTING ON BED. SHE REPORTS NO SOB OR DIZZINESS, JUST GAS. WILL CONTINUE TO MONITOR.
[2019-07-31 17:00] VITALS: BP 122/54
[2019-07-31] MEDS: ATORVASTATIN 20 MG TAB PO SCH (21:10)
[2019-07-31 22:53] VITALS: BP 102/47
[2019-08-01 05:33] VITALS: BP 108/53
[2019-08-01] MEDS: SUCRALFATE 1 GM/10 ML ORAL SUSP PO SCH ×4 (05:54→22:17)
--- NOTE | 2019-08-01 06:31 | NUR ---
ORDERS RECEIVED FROM DR. ALFREDO RE: RIGHT UPPER ARM SWELLING Notified Dr. Alfredo that patient has a PICC to right upper arm and right arm/hand were found to be swollen. Dr. Alfredo is aware that patient is complaining of right hand feeling tight. Dr. Alfredo informed that no erythema was noted to right upper extremity and patient denies tenderness to the right upper arm. Orders for Doppler of the right upper extremity to rule out deep vein thrombosis received. Order verified. Will carry out orders as received.
[2019-08-01 06:52] LABS: Calcium 6.9 mg/dL (8.5-10.1)
--- NOTE | 2019-08-01 07:43 | NUR ---
SPOKE WITH PATIENT, LET HER KNOW DR COLEMAN ORDERED R ARM ULTRASOUND TO RULE OUT DVT. ASSESSED RIGHT ARM MILD ERYTHEMA AND EDEMA NOTED. SPOKE WITH PATIENT AND LET HER KNOW HER POTASSIUM IS LOW (SHE REFUSED HER POTASSIUM YESTERDAY, SHE DID NOT WANT TO DRINK IT HER MOUTH WAS, "RAW.") ASKED PATIENT IF SHE WOULD BE WILLING TO TAKE IT IN PILL FORM TODAY AND SHE AGREED. ALSO NOTIFIED MD PT POTASSIUM LEVEL IS 3.0 AND BLOOD PRESSURE IS 94/39. NEW ORDERS FOR 80 MEQ POTASSIUM. WILL CONTINUE TO MONITOR.
[2019-08-01] MEDS ORDERED: POTASSIUM CHL 20 Meq TABLET PO ONE (08:00)
[2019-08-01 09:00] VITALS: BP 94/39
[2019-08-01] MEDS: POTASSIUM CHL 20MEQ/100ML 100 ML IV SCH ×4 (09:34→15:47)
[2019-08-01] MEDS: prednisoLONE ACETATE 1% OPTH SUSP 5ML EACHEYE SCH ×2 (09:34→22:17)
[2019-08-01] MEDS: SODIUM CHLOR 0.9% PF (SALINE LOCK) 10ML VIAL/SYR IV SCH ×2 (09:35→22:19)
[2019-08-01] MEDS: SOTALOL HCL 80 MG TAB PO SCH ×2 (09:36→22:00)
[2019-08-01] MEDS: ALLOPURINOL 300 MG TAB PO SCH ×3 (09:37→22:18)
[2019-08-01] MEDS: MAGNESIUM OXIDE 400 MG TAB PO SCH (09:37)
[2019-08-01] MEDS: RIVAROXABAN 20 MG TAB PO SCH (09:37)
[2019-08-01] MEDS: LISINOPRIL 5 MG TAB PO SCH ×2 (09:37→22:00)
[2019-08-01] MEDS: PANTOPRAZOLE 40 MG TAB PO SCH ×2 (09:37→22:18)
[2019-08-01] MEDS: LOPERAMIDE 2 MG/10ml ORAL soln PO SCH (09:37)
--- NOTE | 2019-08-01 11:54 | NUR ---
CALLED AND LEFT MESSAGE WITH DR COLEMAN, NOTIFIED PT IS POSITIVE FOR DVT IN RIGHT ARM. AWAITING CALL BACK.
--- NOTE | 2019-08-01 12:00 | NUR ---
WOUND CARE NOTE: Weekly reevaluation by wound care team. Patient has been on skin integrity rounding due to low Yuniel score. Last Yuniel score is 16. Patient has been ambulating with physical therapy. Patient remains free of wounds. Sacral foam dressing in place for prevention. Nursing to continue with previous physician orders. Wound care team to continue to follow while Yuniel <18.
--- NOTE | 2019-08-01 12:26 | NUR ---
PHYSICAL THERAPY CAME AND WORKED WITH PATIENT.
--- NOTE | 2019-08-01 12:56 | NUR ---
Nutrition Follow-up Notes Wt.: 160.1 kg Pt's with PT at bedside during rounds this morning. Pt's s/p EGD with Biopsy (07/25/19), of signs of distress noted earlier, currently on Renal Std diet with inadequate PO of 50% x 4 per RN doc Est. Needs: 1600 kcal to 1950 kcal (20-25 kcal/kgAdBW: 79 kg), 55 gms to 66 gms pro (1.0-1.2 gms/kgBW). Will continue to monitor pertinent labs and reassess nutrient need prn Labs: CA 6.9 L. REST LAB WNL Skin: Yuniel scale 16, mod risk, pt's lower extremity hyperpigmentation per auto polisher. GI: Pt had 1 BM today diarr per auto polisher. PES: Partially resolved: Increased nutrient needs r/t current/chronic medical condition aeb Gastroenteritis, acute,Diarrhea in adult patient,Dehydration,Ileus,mod hypoalbuminemia, on Clear Liquid diet Altered nutrition related lab values r/t current/chronic medical condition aeb hyperglycemia, hypocapnia, hypokalemia, hyperchloremia, elev. renal labs, hypocalcemia and mod hypoalbuminemia Obesity r.t excessive PO intake aeb 281% IBW, BMI 57.9 kg/m2 and increased body adiposity Will continue to monitor PO intake, skin status, pertinent labs and weight trend. F/u in 3 to 5 days. Rec.: 1.) Consider Cardiac: 2 gms Na, Low Chol, Low Fat diet. 2.) Continue close supervision and feeding assistance prn during meals. 3.) If Albumin continues trending down with improved renal labs, consider Prostat 1 pkt BID. 4.) Refer to RD for further nutrition educ. and weight monitoring upon discharge. 5.) Continue current plan of care.
[2019-08-01 13:00] VITALS: BP 101/57
--- NOTE | 2019-08-01 13:10 | NUR ---
PATIENT REQUESTS TO HAVE ORTEGA TAKEN OUT IT IS UNCOMFORTABLE FOR HER. CALLED AND LEFT MESSAGE FOR DR COLEMAN ASKING TO DC ORTEGA. AWAITING CALL BACK.
--- NOTE | 2019-08-01 15:14 | NUR ---
PATIENT BROUGHT IN POT TABS PT TAKES AT HOME AND IS WILLING TO TAKE HERE. POTASSIUM TABS BROUGHT TO PHARMACY. Addendum: 08/01/19 at 1515 by AMILCAR LAWLER RN 2000 MLS SLIGHT CLOUDY YELLOW URINE DRAINED FROM ORTEGA.
--- NOTE | 2019-08-01 16:46 | NUR ---
DR COLEMAN CALLED BACK, NEW ORDERS FOR XARELTO 20 MG PO QD AND GLEN ORTEGA.
[2019-08-01 17:00] VITALS: BP 99/53
--- NOTE | 2019-08-01 17:56 | NUR ---
DC'D ORTEGA PER MD ORDER, 1000 MLS SLIGHTLY CLOUDY YELLOW URINE NOTED. PT TOLERATED PROCEDURE WELL, WILL CONTINUE TO MONITOR.
[2019-08-01] MEDS: SPIRONOLACTONE 25 MG TAB PO SCH (17:58)
--- NOTE | 2019-08-01 18:00 | NUR ---
CLEANED PATIENT ABDOMINAL/PELVIS FOLDS AND FUNGAL CREAM RE-APPLIED.
--- NOTE | 2019-08-01 18:46 | NUR ---
PT VOIDED MODERAT AMOUNT CLEAR YELLOW URINE IN BED FRAIRE. PT JOSE AREA AND BUTTOCKS CLEANED, Z GAURD APPLIED.
--- NOTE | 2019-08-01 19:14 | NUR ---
RECEIVED PATIENT FROM DAY SHIFT RN. PATIENT RESTING IN BED. NO S/S OF DISTRESS NOTED. DENIED PAIN FOR NOW. REMOVED BEDPAN FROM PATIENT, NO BM. CLEANED PATIENT AND PARTIAL LINEN CHANGED. PATIENT TOLERATED WELL. PICC LINE IN PLACE FLUSHING WELL WITH NS. POC INSTRUCTED AND ENCOURAGED PATIENT TO CALL FOR GAME PRODUCER IF NEEDED. BED IN LOWEST POSITION WITH SIDE RAILS UP X 2. CALL ARELLANO WITHIN REACH. ALARM ON. CONTINUE TO MONITOR FOR CHANGES Q1H AND PRN.
[2019-08-01 21:00] VITALS: BP 98/38
--- NOTE | 2019-08-01 21:18 | NUR ---
ASSISTED PATIENT ON BEDPAN. PATIENT TOLERATED WELL. CONTINUE TO MONITOR.
[2019-08-01] MEDS: ATORVASTATIN 20 MG TAB PO SCH (22:17)
--- NOTE | 2019-08-02 02:47 | NUR ---
PATIENT SLEEPING. NO S/S OF DISTRESS NOTED. CONTINUE CARE.
[2019-08-02 04:30] VITALS: BP 114/52
[2019-08-02] MEDS: SUCRALFATE 1 GM/10 ML ORAL SUSP PO SCH ×4 (06:10→22:16)
[2019-08-02] MEDS: SPIRONOLACTONE 25 MG TAB PO SCH ×2 (06:10→18:11)
--- NOTE | 2019-08-02 07:25 | NUR ---
CALLED AND LEFT MESSAGE ASKING DR COLEMAN IF PICC LINE CAN STILL BE USED ON RIGHT ARM, AWAITING CALL BACK.
[2019-08-02 07:33] LABS: BUN/Creatinine Ratio 7.1; Calcium 6.7 mg/dL (8.5-10.1); Potassium 3.1 mmol/L (3.5-5.1)
[2019-08-02] MEDS ORDERED: POTASSIUM CHL 20MEQ/100ML 100 ML IV SCH (08:45)
[2019-08-02 09:00] VITALS: BP 110/56
[2019-08-02] MEDS: LOPERAMIDE 2 MG/10ml ORAL soln PO SCH (10:00)
[2019-08-02] MEDS: LISINOPRIL 5 MG TAB PO SCH ×2 (10:00→22:16)
--- NOTE | 2019-08-02 10:00 | NUR ---
PATIENT CLEANED PATIENT'S ABDOMINAL AND PELVIC FOLDS PER REQUEST. ALSO APPLIED Z GAURD TO PATIENT BUTTOCKS.
[2019-08-02] MEDS: MAGNESIUM SULFATE 1GM/100ML 100 ML IV SCH ×2 (11:01→12:37)
[2019-08-02] MEDS: MAGNESIUM OXIDE 400 MG TAB PO SCH (11:01)
[2019-08-02] MEDS: PANTOPRAZOLE 40 MG TAB PO SCH ×2 (11:02→22:15)
[2019-08-02] MEDS: ALLOPURINOL 300 MG TAB PO SCH ×2 (11:02→22:00)
[2019-08-02] MEDS: FUROSEMIDE 40 MG TAB PO SCH (11:03)
[2019-08-02] MEDS: RIVAROXABAN 20 MG TAB PO SCH (11:04)
[2019-08-02] MEDS: SOTALOL HCL 80 MG TAB PO SCH ×2 (11:06→22:15)
[2019-08-02] MEDS: SODIUM CHLOR 0.9% PF (SALINE LOCK) 10ML VIAL/SYR IV SCH ×2 (11:06→22:14)
[2019-08-02] MEDS: prednisoLONE ACETATE 1% OPTH SUSP 5ML EACHEYE SCH ×2 (11:11→22:13)
[2019-08-02] MEDS ORDERED: POTASSIUM CHLORIDE 40 MEQ PO ONE ×2 (11:30→13:45)
[2019-08-02 13:00] VITALS: BP 112/54
[2019-08-02] MEDS: POTASSIUM CHL 20MEQ/100ML 100 ML IV SCH ×2 (13:29→14:23)
[2019-08-02 13:54] LABS: Calcium 6.8 mg/dL (8.5-10.1); Potassium 3.3 mmol/L (3.5-5.1)
[2019-08-02 13:56] LABS: BUN/Creatinine Ratio 8.2
--- NOTE | 2019-08-02 14:38 | NUR ---
PT REFUSED PHYSICAL THERAPY TODAY. NOTIFIED TIA CHIN. Addendum: 08/02/19 at 1439 by EVELIO MORAN PTT Amended: Links added.
[2019-08-02 16:55] VITALS: BP 110/55
--- NOTE | 2019-08-02 19:45 | NUR ---
RECEIVED PATIENT FROM DAY SHIFT RN. PATIENT RESTING IN BED. NO S/S OF DISTRESS NOTED. DENIED PAIN FOR NOW. REMOVED BEDPAN FROM PATIENT, NO BM. CLEANED PATIENT AND PARTIAL LINEN CHANGED. PATIENT TOLERATED WELL. PICC LINE IN PLACE FLUSHING WELL WITH NS. POC INSTRUCTED AND ENCOURAGED PATIENT TO CALL FOR REAL ESTATE ANALYST IF NEEDED. BED IN LOWEST POSITION WITH SIDE RAILS UP X 2. CALL ARELLANO WITHIN REACH. ALARM ON. CONTINUE TO MONITOR FOR CHANGES Q1H AND PRN.
[2019-08-02 22:00] VITALS: BP 123/77
[2019-08-02] MEDS: ATORVASTATIN 20 MG TAB PO SCH (22:16)
--- NOTE | 2019-08-02 22:32 | NUR ---
ASSISTED PATIENT TO BEDPAN. PATIENT TOLERATED WELL. NO S/S OF DISTRESS NOTED. CONTINUE TO MONITOR.
[2019-08-03] VITALS (7 sets, daily range): BP systolic 100–118; BP diastolic 49–64
--- NOTE | 2019-08-03 03:21 | NUR ---
PATIENT SLEEPING. NO S/S OF DISTRESS NOTED. CONTINUE CARE.
[2019-08-03] MEDS: SPIRONOLACTONE 25 MG TAB PO SCH ×2 (06:14→18:05)
[2019-08-03] MEDS: SUCRALFATE 1 GM/10 ML ORAL SUSP PO SCH ×4 (06:15→22:24)
[2019-08-03 06:27] LABS: Basophils # (auto) 0 uL; Basophils % (auto) 0.8 % (0.0-2.0); Eosinophils # (auto) 0.2 uL; Eosinophils % (auto) 2.8 % (0.0-7.0); Hematocrit 33.4 % (36.0-46.0); Hemoglobin 10.9 g/dL (12.2-16.2); Lymphocytes # (auto) 1.3 uL; Lymphocytes % (auto) 20.6 % (10.0-50.0); Mean Corpuscular Hemoglobin 32.3 pg (28.0-32.0); Mean Corpuscular Hgb Conc. 32.7 g/dL (32.0-36.0); Mean Corpuscular Volume 98.7 fL (80.0-100.0); Monocytes # (auto) 0.5 uL; Monocytes % (auto) 8.3 % (0.0-12.0); Neutrophils # (auto) 4.4 uL; Neutrophils % (auto) 67.5 % (37.0-80.0); Nucleated Red Blood Cells % 0.1 %; Platelet Count (auto) 128 10^3/uL (140-450); Red Blood Cells 3.38 10^6/uL (4.0-5.20); Red Cell Distribution Width 16.2 % (11.8-14.3); White Blood Cell 6.5 10^3/uL (4.4-10.8)
[2019-08-03 06:43] LABS: BUN/Creatinine Ratio 8.2; Calcium 6.7 mg/dL (8.5-10.1); Magnesium 1.3 mg/dL (1.6-2.6); Potassium 3.3 mmol/L (3.5-5.1)
[2019-08-03 06:49] LABS: Phosphorus 0.9 mg/dL (2.5-4.90)
--- NOTE | 2019-08-03 06:52 | NUR ---
Called/paged Dr. COLEMAN called re:CRITICAL LAB RESULT, PHOSPHATE 0.9 PER QUILL MACHINE TENDER LUIS. Waiting for call back. Continue care.
[2019-08-03] MEDS: SODIUM CHLOR 0.9% PF (SALINE LOCK) 10ML VIAL/SYR IV SCH ×2 (10:00→22:00)
[2019-08-03] MEDS: LOPERAMIDE 2 MG/10ml ORAL soln PO SCH (10:00)
[2019-08-03] MEDS ORDERED: POTASSIUM CHL 20 Meq TABLET PO SCH ×3 (10:30→14:30)
--- NOTE | 2019-08-03 10:30 | NUR ---
PATIENT REFUSED POTASSIUM, STATED SHE WANTED TO TAKE HER HOME MEDICATIONS OF POTASSIUM.
[2019-08-03] MEDS ORDERED: MAGNESIUM SULFATE 1GM/100ML 100 ML IV SCH (11:00)
[2019-08-03] MEDS: PANTOPRAZOLE 40 MG TAB PO SCH ×2 (11:02→22:25)
[2019-08-03] MEDS: MAGNESIUM OXIDE 400 MG TAB PO SCH ×2 (11:02→22:25)
[2019-08-03] MEDS: SOTALOL HCL 80 MG TAB PO SCH ×2 (11:04→22:40)
[2019-08-03] MEDS: RIVAROXABAN 20 MG TAB PO SCH (11:05)
[2019-08-03] MEDS: LISINOPRIL 5 MG TAB PO SCH ×2 (11:05→22:25)
[2019-08-03] MEDS: ALLOPURINOL 300 MG TAB PO SCH (11:05)
[2019-08-03] MEDS ORDERED: ERGOCALCIFEROL 50,000 UNIT(1.25MG) CAP PO SCH (12:00)
--- NOTE | 2019-08-03 12:02 | NUR ---
DOCTOR [place] AWARE OF MAGNESIUM LEVEL 1.3 AND PHOSPHORUS IS 0.9. NEW ORDERS RECEIVED SEE EMR FOR ORDERS.
--- NOTE | 2019-08-03 12:02 | NUR ---
SPOKE WITH [place] REGARDING DVT IN RIGHT UPPER ARM. PER [place] D/C PICCLINE.
--- NOTE | 2019-08-03 12:02 | NUR ---
INFORMED DOCTOR [place] OF PATIENT REQUESTING TO TAKE POM FOR POTASSIUM PO. PER [place] HOLT FOR PATIENT TO TAKE POM FOR POTASSIUM.
--- NOTE | 2019-08-03 12:30 | NUR ---
CALLED PHARMACY TO NOTIFY PER [place] HOLT TO GIVE POM FOR POTASSIUM.
[2019-08-03] MEDS: prednisoLONE ACETATE 1% OPTH SUSP 5ML EACHEYE SCH ×2 (13:30→22:26)
--- NOTE | 2019-08-03 13:30 | NUR ---
PICC LINE REMOVED BY IMPLEMENTATION DIRECTOR CHRIS. PICC LINE CATHETER INTACT, PRESSURE APPLIED, COVERED WITH 2X2 AND COVERED WITH TEGADERM. AT BEDSIDE,PATIENT TOLERATED WELL.
[2019-08-03] MEDS ORDERED: POTASSIUM CHLORIDE 10 MEQ PO ONE (16:30)
--- NOTE | 2019-08-03 19:40 | NUR ---
Opening Shift Note Assumed care of patient, awake and alert. No S/S of distress/SOB or pain. Bed in lowest locked position, side rails up x2, call light within reach. Instructed on POC and to call for assist PRN, will continue to monitor for changes Q1hr and PRN. Addendum: 08/04/19 at 0807 by ERIN ROJAS RN RN ADDITION: Per report and documentation from katya WEBER, Dr. Alfredo aware of patient's lab values and DVT to right upper extremity. Will implement care as ordered and continue to monitor patient.
[2019-08-03] MEDS: DIPHENOXYLATE W/ATROPINE 2.5 MG TAB PO PRN (21:16)
[2019-08-03] MEDS: ATORVASTATIN 20 MG TAB PO SCH (22:25)
--- NOTE | 2019-08-03 22:30 | NUR ---
Refusing IV Access Patient refusing to have IV access at this time. Patient made aware of importance of IV access to patient's care and assistance in getting medication quickly to patient in event of an emergency. Patient verbalized understanding, continuing to refuse at this time. Charge nurse Bibi WEBER aware of patient refusing. No s/s of distress. Will continue to monitor.
[2019-08-04 05:26] VITALS: BP 103/63
[2019-08-04] MEDS: SUCRALFATE 1 GM/10 ML ORAL SUSP PO SCH ×4 (07:00→22:26)
[2019-08-04] MEDS: SPIRONOLACTONE 25 MG TAB PO SCH ×2 (07:00→17:51)
--- NOTE | 2019-08-04 07:20 | NUR ---
Closing Note Patient lying in bed, eyes closed, respirations even and unlabored, appears asleep. Patient awakens to name and touch. No s/s of distress. Bed in lowest locked position, side rails up x2, call light within reach. Care endorsed to dayshift RN.
[2019-08-04 07:50] LABS: Calcium 6.8 mg/dL (8.5-10.1); Potassium 3.5 mmol/L (3.5-5.1); Uric Acid 3.1 mg/dL (2.6-6.0)
[2019-08-04 07:53] LABS: BUN/Creatinine Ratio 7.9; Bilirubin, Total 0.5 mg/dL (0.2-1.0); Total Protein 4.7 g/dL (6.4-8.2)
[2019-08-04 09:00] VITALS: BP 110/56
[2019-08-04] MEDS: prednisoLONE ACETATE 1% OPTH SUSP 5ML EACHEYE SCH ×2 (09:59→22:24)
[2019-08-04] MEDS: LISINOPRIL 5 MG TAB PO SCH ×2 (10:00→22:00)
[2019-08-04] MEDS ORDERED: MAGNESIUM SULFATE 1GM/100ML 100 ML IV SCH (10:00)
[2019-08-04] MEDS ORDERED: POTASSIUM PHOSPHATE 44 MEQ in D5W 5% 250 ML IV ONE (10:00)
[2019-08-04] MEDS: POTASSIUM CHLORIDE 10 MEQ PO SCH (10:00)
[2019-08-04] MEDS: SOTALOL HCL 80 MG TAB PO SCH ×2 (10:00→22:00)
[2019-08-04] MEDS: LOPERAMIDE 2 MG/10ml ORAL soln PO SCH (10:02)
[2019-08-04] MEDS: PANTOPRAZOLE 40 MG TAB PO SCH ×2 (10:04→22:25)
[2019-08-04] MEDS: RIVAROXABAN 20 MG TAB PO SCH (10:04)
[2019-08-04] MEDS: ALLOPURINOL 300 MG TAB PO SCH (10:04)
[2019-08-04] MEDS: MAGNESIUM OXIDE 400 MG TAB PO SCH ×2 (10:04→22:23)
[2019-08-04] MEDS: SODIUM CHLOR 0.9% PF (SALINE LOCK) 10ML VIAL/SYR IV SCH ×2 (10:09→22:00)
--- NOTE | 2019-08-04 10:40 | NUR ---
DR. WALLACE NEW ORDERS RECEIVED POTASSIUM PHOSPHATE AND SODIUM PHOSPHATE 250MG PO TID, CHANGE MAGNESIUM OXIDE 400MG PO TO TID. WILL FOLLOW ORDERED.
--- NOTE | 2019-08-04 11:30 | NUR ---
PATIENT DECLINED PT. BECAUSE OF GOING HOME.
[2019-08-04] MEDS: NEUTRA-PHOS TABLET PO SCH ×2 (12:41→17:51)
[2019-08-04 13:03] VITALS: BP 108/50
--- NOTE | 2019-08-04 14:00 | NUR ---
DR. COOLEY PER DR. COOLEY PLACE CONSULT FOR DR. WHIPPLE AND CANCEL DR. LUIS.
--- NOTE | 2019-08-04 16:30 | NUR ---
SS consult Spoke with ss regarding wheelchair ordered per Dr. Alfredo. Per SS will follow with Darvin patient may not receive DME today.
[2019-08-04 16:50] VITALS: BP 113/52
--- NOTE | 2019-08-04 18:11 | NUR ---
SS REQUEST FOR DME FAX FAILED TO SEND EARLIER, RESENT NOW, AWAITING RESPONSE FROM DME COMPANY. PATIENT INFORMED BY SHE MAY NOT BE GOING HOME THE DME MAY NOT BE AVAILABLE UNTIL TOMORROW. PATIENT VERBALIZED UNDERSTANDING.
[2019-08-04 22:00] VITALS: BP 99/55
[2019-08-04] MEDS: ATORVASTATIN 20 MG TAB PO SCH (22:25)
[2019-08-04] MEDS: DIPHENOXYLATE W/ATROPINE 2.5 MG TAB PO PRN (23:17)
[2019-08-05] MEDS: MAGNESIUM OXIDE 400 MG TAB PO SCH ×2 (05:33→13:24)
[2019-08-05] MEDS: SUCRALFATE 1 GM/10 ML ORAL SUSP PO SCH ×2 (05:33→12:05)
[2019-08-05] MEDS: SPIRONOLACTONE 25 MG TAB PO SCH (05:33)
[2019-08-05 06:00] VITALS: BP 102/56
[2019-08-05 08:02] LABS: Albumin 2.1 g/dL (3.4-5.0); BUN/Creatinine Ratio 8.2; Bilirubin, Total 0.4 mg/dL (0.2-1.0); Calcium 6.9 mg/dL (8.5-10.1); Potassium 3.4 mmol/L (3.5-5.1); Total Protein 4.7 g/dL (6.4-8.2)
[2019-08-05 09:20] VITALS: BP 118/67
[2019-08-05] MEDS: prednisoLONE ACETATE 1% OPTH SUSP 5ML EACHEYE SCH (09:40)
[2019-08-05] MEDS: NEUTRA-PHOS TABLET PO SCH (09:41)
[2019-08-05] MEDS: POTASSIUM CHLORIDE 10 MEQ PO SCH (09:41)
[2019-08-05] MEDS: ALLOPURINOL 300 MG TAB PO SCH (09:42)
[2019-08-05] MEDS: PANTOPRAZOLE 40 MG TAB PO SCH (09:43)
[2019-08-05] MEDS: RIVAROXABAN 20 MG TAB PO SCH (09:43)
[2019-08-05] MEDS: SOTALOL HCL 80 MG TAB PO SCH (09:43)
[2019-08-05] MEDS: LISINOPRIL 5 MG TAB PO SCH (09:44)
[2019-08-05] MEDS: LOPERAMIDE 2 MG/10ml ORAL soln PO SCH (09:44)
[2019-08-05] MEDS: SODIUM CHLOR 0.9% PF (SALINE LOCK) 10ML VIAL/SYR IV SCH (09:48)
[2019-08-05 11:04] VITALS: BP 113/82
[2019-08-05] MEDS ORDERED: POTASSIUM PHOSPHATE 44 MEQ in D5W 5% 250 ML IV ONE (11:30)
[2019-08-05 13:20] VITALS: BP 102/56
--- NOTE | 2019-08-05 15:04 | NUR ---
PATIENT IS NOT WILLING TO WAIT FOR DELIVERY OF WHEELCHAIR TO GO HOME. PATIENT STATES THAT SHE FEELS SAFE TO GO HOME UNTIL WHEELCHAIR IS DELIVERED. PATIENT ALSO STATED THAT HER WAS GOING TO RENT A WHEELCHAIR FOR HER TO USE UNTIL WHEELCHAIR IS DELIVERED BY CHRISTINE TO HER HOME.
--- NOTE | 2019-08-05 16:00 | NUR ---
Wheelchair Patients rented a wheelchair to have at home for patient until approval from [facility] wheelchair for home safety.
--- NOTE | 2019-08-05 17:20 | NUR ---
Discharge instructions given as ordered. Encourage to follow up with PMD as instructed. All questions and concerns addressed. Patient verbalized understanding. Medication reconciliation form completed and copy given to patient. Home medications held in Pharmacy returned to patient. Telemetry unit returned to ICU. Patient taken to vehicle via wheelchair with all personal belongings, accompanied by staff and family member. No distress noted at time of departure.
--- NOTE | 2019-08-05 17:24 | NUR ---
D/C Planning Per SS consult for Home Health physical therapy and wheelchair. Information and choice letter was given to Pt at bedside. Pt requested [facility]. Advised Pt at bedside wheelchair will be pre-order from [facility]. Pt stated she did not want to wait for wheelchair and stated she will have her rent a wheelchair until wheelchair is deliver. Pt verbalize understanding d/c plan. Pt Contacted [facility] ph:) Fax:) faxed medical records. Per Pat from [facility] Pt has been accepted and service to start within 48hrs upon d/c day. Contacted [facility] Ph:) Fax:) faxed medical records. Per Kiana from [facility] wheelchair will be pre order and will be deliver at home. Advised TIA Swartz. Per TIA Swartz stated Pt arrived to bedside with rented wheelchair and will be going home.
== END 2019-08-05 17:20 | disposition home health service (06) | DRG 391 ==
LOC: ER 15:44 → TELE 15:45 → ICU WEST 07-22 15:05 → TELE-WESTW 07-27 18:17
PROVIDERS: ADMIT Internal Medicine Cardiovascular Disease; ATTEND Internal Medicine Cardiovascular Disease
PROC: 02HV33Z Insertion of Infusion Device into Superior Vena Cava, Percutaneous Approach (ICD-10-PCS; 2019-07-23)
PROC: 0DB68ZX Excision of Stomach, Via Natural or Artificial Opening Endoscopic, Diagnostic (ICD-10-PCS; principal; 2019-07-25 11:15)
DX: K52.9 Noninfective gastroenteritis and colitis, unspecified (principal); N17.0 Acute kidney failure with tubular necrosis; I13.0 Hypertensive heart and chronic kidney disease with heart failure and stage 1 through stage 4 chronic kidney disease, or unspecified chronic kidney disease; K56.7 Ileus, unspecified; E87.0 Hyperosmolality and hypernatremia; Z68.45 Body mass index [BMI] 70 or greater, adult; E86.0 Dehydration; E87.6 Hypokalemia; I50.9 Heart failure, unspecified; I27.20 Pulmonary hypertension, unspecified; M81.0 Age-related osteoporosis without current pathological fracture; N18.3 Chronic kidney disease, stage 3 (moderate); K20.9 Esophagitis, unspecified; K29.70 Gastritis, unspecified, without bleeding; K44.9 Diaphragmatic hernia without obstruction or gangrene; I95.9 Hypotension, unspecified; E83.42 Hypomagnesemia; E66.01 Morbid (severe) obesity due to excess calories; R00.0 Tachycardia, unspecified; Z88.2 Allergy status to sulfonamides; Z88.8 Allergy status to other drugs, medicaments and biological substances; E83.39 Other disorders of phosphorus metabolism; E83.51 Hypocalcemia; I27.29 Other secondary pulmonary hypertension; I48.91 Unspecified atrial fibrillation; Z79.899 Other long term (current) drug therapy; Z88.1 Allergy status to other antibiotic agents
CPT/HCPCS: 36415; 36569; 43239; 71045; 74176; 74250; 80048; 80053; 81001; 82270; 82306; 82570; 83605; 83735; 83880; 84100; 84132; 84300; 84484; 84550; 85025; 85610; 85730; 87040; 87045; 87081; 87427; 87493; 87899; 93005; 93971; 94761; 96361; 96365; 96366; 97116; 97163; 97530; 99291; G0378; J2250; J2405; J2543; J3480; J3490; J7060

== ENCOUNTER → 2019-08-22 | Outpatient (CLI) | payer MEDICARE, OTHER ==
[~2019-08-22] MED LIST changes: +ALLO300T2 PO; +ATOR10TA52 PO; -CYANOCOBALAMIN (B-12) 1000 MCG/1 ML VIAL IM ONE; -CYANOCOBALAMIN (B-12) 1000 MCG/1 ML VIAL ONE; +DEXL60CA3 PO; +FURO40TA4 PO; +LISI-275 PO; +MAGN400T5 PO; +ONDA-144 PO; +OXYB10TA14 PO; +POTA10TA51 PO; +RIOC1TAB5 PO; +RIVA20TA PO; +SOTA80TA PO
== END | disposition home or self-care (01) ==
LOC: Rad HDHVI 12:55
PROVIDERS: ATTEND Internal Medicine Cardiovascular Disease
DX: I08.1 Rheumatic disorders of both mitral and tricuspid valves (principal); I27.21 Secondary pulmonary arterial hypertension; R06.02 Shortness of breath; R07.89 Other chest pain
CPT/HCPCS: 93306

== ENCOUNTER → 2019-09-09 | Outpatient (CLI) | payer MEDICARE, OTHER ==
[2019-09-09 10:20] VITALS: BP 145/77
--- NOTE | 2019-09-09 10:20 | NUR ---
PAH PT ARRIVED TO THE CHF CLINIC FOR PAH FOLLOW UP AND EVAL. CARDIODYNAMICS ORDERED. PT A/O X 4
[2019-09-09 11:00] VITALS: BP 145/77
--- NOTE | 2019-09-09 11:00 | NUR ---
Discharge Instructions See e-MAR for any mediations given with this visit. Patient education given on disease process. Patient verbalized understanding. Previous labs reviewed. Patient discharged in stable condition with after care instructions and follow up appointment. CARDIODYNAMICS COMPLETE LABS DRAWN FOR DR COBOS OFFICE ADEMPAS 1.5 MG TID
[2019-09-09 16:02] LABS: Urine Blood Negative /uL (Negative); Urine Specific Gravity 1.018 (1.001-1.035)
[2019-09-09 16:06] LABS: Albumin 3.4 g/dL (3.4-5.0); Calcium 8.5 mg/dL (8.5-10.1); Potassium 3.9 mmol/L (3.5-5.1); Uric Acid 3.7 mg/dL (2.6-6.0)
[2019-09-09 16:10] LABS: BUN/Creatinine Ratio 19.4; Bilirubin, Direct 0.3 mg/dL (0-0.2); Bilirubin, Total 0.9 mg/dL (0.2-1.0); Creatinine, Urine 115 mg/dL (30.0-125.0); Protein, Urine 18.9 mg/dL (0.0-11.9); Total Protein 6.8 g/dL (6.4-8.2)
[2019-09-09 16:14] LABS: Basophils # (auto) 0 uL; Basophils % (auto) 0.7 % (0.0-2.0); Eosinophils # (auto) 0.2 uL; Eosinophils % (auto) 2.2 % (0.0-7.0); Hematocrit 40.4 % (36.0-46.0); Hemoglobin 13.3 g/dL (12.2-16.2); Lymphocytes # (auto) 1.2 uL; Lymphocytes % (auto) 17.5 % (10.0-50.0); Mean Corpuscular Hemoglobin 32.6 pg (28.0-32.0); Mean Corpuscular Hgb Conc. 32.8 g/dL (32.0-36.0); Mean Corpuscular Volume 99.4 fL (80.0-100.0); Monocytes # (auto) 0.4 uL; Monocytes % (auto) 5.6 % (0.0-12.0); Neutrophils # (auto) 5.1 uL; Nucleated Red Blood Cells % 0.1 %; Platelet Count (auto) 244 10^3/uL (140-450); Red Blood Cells 4.06 10^6/uL (4.0-5.20); Red Cell Distribution Width 16.8 % (11.8-14.3); White Blood Cell 6.9 10^3/uL (4.4-10.8)
== END | disposition home or self-care (01) ==
LOC: CHF HDHVI 10:26
PROVIDERS: ATTEND Internal Medicine Cardiovascular Disease
DX: M10.9 Gout, unspecified (principal); I13.0 Hypertensive heart and chronic kidney disease with heart failure and stage 1 through stage 4 chronic kidney disease, or unspecified chronic kidney disease; I50.9 Heart failure, unspecified; N18.3 Chronic kidney disease, stage 3 (moderate); R80.9 Proteinuria, unspecified; D63.1 Anemia in chronic kidney disease; E21.3 Hyperparathyroidism, unspecified; E78.5 Hyperlipidemia, unspecified; E56.9 Vitamin deficiency, unspecified; Z88.1 Allergy status to other antibiotic agents; Z87.891 Personal history of nicotine dependence
CPT/HCPCS: 36415; 80069; 80076; 81003; 82306; 82570; 83970; 84156; 84550; 85025; 93701; G0463

== ENCOUNTER → 2019-09-23 | Outpatient (CLI) | payer MEDICARE, OTHER ==
[2019-09-23 14:30] VITALS: BP 141/70
[2019-09-23 15:19] VITALS: BP 123/56
== END | disposition home or self-care (01) ==
LOC: CHF HDHVI 14:22
PROVIDERS: ATTEND Internal Medicine Cardiovascular Disease
DX: I13.2 Hypertensive heart and chronic kidney disease with heart failure and with stage 5 chronic kidney disease, or end stage renal disease (principal); N18.6 End stage renal disease; I50.9 Heart failure, unspecified; I27.21 Secondary pulmonary arterial hypertension; R53.83 Other fatigue; I48.91 Unspecified atrial fibrillation; Z87.891 Personal history of nicotine dependence; Z88.1 Allergy status to other antibiotic agents; Z88.2 Allergy status to sulfonamides
CPT/HCPCS: 93701; G0463

== ENCOUNTER → 2019-11-05 | Outpatient (CLI) | payer MEDICARE, OTHER ==
[~2019-11-05] MED LIST changes: +CYANOCOBALAMIN (B-12) 1000 MCG/1 ML VIAL ONE; +MAGN400T40 PO; -MAGN400T5 PO
[2019-11-05 10:50] VITALS: BP 123/51
[2019-11-05 11:23] VITALS: BP 106/40
--- NOTE | 2019-11-05 11:23 | NUR ---
Discharge Instructions See e-MAR for any mediations given with this visit. Patient education given on disease process. Patient verbalized understanding. Previous labs reviewed. Patient discharged in stable condition with after care instructions and follow up appointment. CARDIODYNAMICS COMPLETED BY LOVE WEBER REVIEWED BY RN PT IS ON ADEMPAS 2.0 AM AND PM AND 1.5 IN AFTERNOON . DISCUSSED DIET WITH PATIENT AND IMPORTANCE OF LOWERING SALT INTAKE. PT VERBALIZED UNDERSTANDING
[2019-11-05 12:28] LABS: Albumin 3.1 g/dL (3.4-5.0); Calcium 8.6 mg/dL (8.5-10.1); Magnesium 2.1 mg/dL (1.6-2.6); Potassium 3.9 mmol/L (3.5-5.1)
[2019-11-05 12:34] LABS: BUN/Creatinine Ratio 16.8; Bilirubin, Total 0.8 mg/dL (0.2-1.0); Total Protein 6.2 g/dL (6.4-8.2)
== END | disposition home or self-care (01) ==
LOC: CHF HDHVI 11:06
PROVIDERS: ATTEND Internal Medicine Cardiovascular Disease
DX: D51.9 Vitamin B12 deficiency anemia, unspecified (principal); E83.40 Disorders of magnesium metabolism, unspecified; I10 Essential (primary) hypertension; Z79.899 Other long term (current) drug therapy
CPT/HCPCS: 36415; 80053; 82607; 83036; 83735; 93701; G0463

== ENCOUNTER → 2019-11-19 | Outpatient (CLI) | payer MEDICARE, OTHER ==
[~2019-11-19] MED LIST changes: +CYANOCOBALAMIN (B-12) 1000 MCG/1 ML VIAL IM ONE
[2019-11-19 12:59] VITALS: BP 130/58
--- NOTE | 2019-11-19 14:15 | NUR ---
Discharge Instructions See e-MAR for any mediations given with this visit. Patient education given on disease process. Patient verbalized understanding. Previous labs reviewed. Patient discharged in stable condition with after care instructions and follow up appointment. MEDICATIONS VITAMIN B12 1000MCG IM X 1 LEFT DELTOID LOT# [id number] EXP 05/26 PT IS CURRENTLY ON ADEMPAS 2.0
[2019-11-20 12:01] VITALS: BP 138/65
== END | disposition home or self-care (01) ==
LOC: CHF HDHVI 13:00
PROVIDERS: ATTEND Internal Medicine Cardiovascular Disease
DX: I27.21 Secondary pulmonary arterial hypertension (principal); R53.83 Other fatigue; I10 Essential (primary) hypertension; Z79.899 Other long term (current) drug therapy
CPT/HCPCS: 96372; G0463; J3420

== ENCOUNTER → 2019-12-10 | Outpatient (CLI) | payer MEDICARE, OTHER ==
[2019-12-10 13:05] VITALS: BP 126/57
[2019-12-10 13:24] VITALS: BP 143/74
--- NOTE | 2019-12-10 13:24 | NUR ---
Discharge Instructions See e-MAR for any mediations given with this visit. Patient education given on disease process. Patient verbalized understanding. Previous labs reviewed. Patient discharged in stable condition with after care instructions and follow up appointment. PT HAS LINGERING COLD SENT HOME ON IM ANCEF FROM HER PRIMARY CARE DOCTOR. WILL DO CARDIODYNAMICS NEXT APPOINTMENT MEDICATIONS VITAMIN B12 1000 MCG IM LEFT DELTOID
[2019-12-10 16:00] LABS: Urine Blood Negative /uL (Negative); Urine Specific Gravity 1.017 (1.001-1.035)
[2019-12-10 16:08] LABS: Albumin 3.4 g/dL (3.4-5.0); Basophils # (auto) 0 uL; Basophils % (auto) 0.6 % (0.0-2.0); Bilirubin, Direct 0.2 mg/dL (0-0.2); Calcium 8.7 mg/dL (8.5-10.1); Eosinophils # (auto) 0.2 uL; Eosinophils % (auto) 2.3 % (0.0-7.0); Hematocrit 40.2 % (36.0-46.0); Hemoglobin 13.2 g/dL (12.2-16.2); Lymphocytes % (auto) 15.9 % (10.0-50.0); Mean Corpuscular Hemoglobin 31.5 pg (28.0-32.0); Mean Corpuscular Volume 95.6 fL (80.0-100.0); Monocytes # (auto) 0.5 uL; Monocytes % (auto) 7.7 % (0.0-12.0); Neutrophils # (auto) 4.7 uL; Neutrophils % (auto) 73.5 % (37.0-80.0); Nucleated Red Blood Cells % 0.1 %; Platelet Count (auto) 328 10^3/uL (140-450); Potassium 3.8 mmol/L (3.5-5.1); Red Cell Distribution Width 15.3 % (11.8-14.3); White Blood Cell 6.4 10^3/uL (4.4-10.8)
[2019-12-10 16:11] LABS: BUN/Creatinine Ratio 8.7; Bilirubin, Total 0.7 mg/dL (0.2-1.0); Phosphorus 3.4 mg/dL (2.5-4.90); Total Protein 6.4 g/dL (6.4-8.2); Uric Acid 3.6 mg/dL (2.6-6.0)
[2019-12-10 16:14] LABS: Creatinine, Urine 131 mg/dL (30.0-125.0); Protein, Urine 29.2 mg/dL (0.0-11.9)
== END | disposition home or self-care (01) ==
LOC: CHF HDHVI 13:11
PROVIDERS: ATTEND Internal Medicine Cardiovascular Disease
DX: I27.21 Secondary pulmonary arterial hypertension (principal); R60.0 Localized edema; R53.83 Other fatigue; R80.9 Proteinuria, unspecified; N18.3 Chronic kidney disease, stage 3 (moderate); D63.1 Anemia in chronic kidney disease; E21.3 Hyperparathyroidism, unspecified; E78.5 Hyperlipidemia, unspecified; M10.9 Gout, unspecified; E56.9 Vitamin deficiency, unspecified; I10 Essential (primary) hypertension; Z79.899 Other long term (current) drug therapy
CPT/HCPCS: 36415; 80069; 80076; 81003; 82306; 82570; 83970; 84156; 84550; 85025; 96372; G0463; J3420

== ENCOUNTER → 2020-01-02 | Outpatient (CLI) | payer MEDICARE, OTHER ==
[2020-01-02 12:58] VITALS: BP 116/39
--- NOTE | 2020-01-02 12:58 | NUR ---
PATIENT IN FOR MONTHLY PAH VISIT, DOWN 12.4LBS. PATIENT STATED SHE DECREASED SODA AND CUT OUT DAIRY OF HER DIET RECOMMENDED BY THE GASTROLOGIST.
[2020-01-02 13:52] VITALS: BP 111/50
--- NOTE | 2020-01-02 13:52 | NUR ---
CHF CLINIC Discharge Instructions See e-MAR for any mediations given with this visit. Patient education given on disease process. Patient verbalized understanding. Previous labs reviewed. Patient discharged in stable condition with after care instructions and follow up appointment. NOTE CARDIODYNAMICS DONE BY ÁLVARO GARAY AND REVIEWED WITH PATIENT. B12 IM L DELTOID ADMIN BY ÁLVARO GARAY.
== END | disposition home or self-care (01) ==
LOC: CHF HDHVI 13:04
PROVIDERS: ATTEND Internal Medicine Cardiovascular Disease
DX: I27.21 Secondary pulmonary arterial hypertension (principal); R53.83 Other fatigue; I48.91 Unspecified atrial fibrillation; I12.9 Hypertensive chronic kidney disease with stage 1 through stage 4 chronic kidney disease, or unspecified chronic kidney disease; N18.3 Chronic kidney disease, stage 3 (moderate); R06.02 Shortness of breath; E78.5 Hyperlipidemia, unspecified; E66.9 Obesity, unspecified; Z79.899 Other long term (current) drug therapy
CPT/HCPCS: 93701; 96372; G0463; J3420

== ENCOUNTER → 2020-04-02 | Outpatient (CLI) | payer MEDICARE, OTHER ==
[2020-04-02 14:07] VITALS: BP 139/59
[2020-04-02 15:00] VITALS: BP 129/60
[2020-04-02 16:01] LABS: Basophils # (auto) 0 10 ^3/uL (0-0.2); Basophils % (auto) 0.6 % (0.0-2.0); Eosinophils # (auto) 0.2 10 ^3/uL (0-0.8); Eosinophils % (auto) 2.8 % (0.0-7.0); Hematocrit 36.2 % (36.0-46.0); Hemoglobin 11.9 g/dL (12.2-16.2); Lymphocytes # (auto) 0.8 10 ^3/uL (0.4-5.4); Lymphocytes % (auto) 12.4 % (10.0-50.0); Mean Corpuscular Hemoglobin 30.7 pg (28.0-32.0); Mean Corpuscular Hgb Conc. 32.8 g/dL (32.0-36.0); Mean Corpuscular Volume 93.6 fL (80.0-100.0); Monocytes # (auto) 0.4 10 ^3/uL (0-1.3); Monocytes % (auto) 6.3 % (0.0-12.0); Neutrophils % (auto) 77.9 % (37.0-80.0); Platelet Count (auto) 185 10^3/uL (140-450); Red Blood Cells 3.87 10^6/uL (4.0-5.20); Red Cell Distribution Width 15.4 % (11.8-14.3); White Blood Cell 6.5 10^3/uL (4.4-10.8)
[2020-04-02 16:09] LABS: Albumin 3.4 g/dL (3.4-5.0); Calcium 8.3 mg/dL (8.5-10.1); Magnesium 1.9 mg/dL (1.6-2.6); Potassium 3.8 mmol/L (3.5-5.1)
[2020-04-02 16:13] LABS: Total Protein 6.5 g/dL (6.4-8.2)
== END | disposition home or self-care (01) ==
LOC: CHF HDHVI 14:26
PROVIDERS: ATTEND Internal Medicine Cardiovascular Disease
DX: I13.0 Hypertensive heart and chronic kidney disease with heart failure and stage 1 through stage 4 chronic kidney disease, or unspecified chronic kidney disease (principal); I50.9 Heart failure, unspecified; I27.21 Secondary pulmonary arterial hypertension; R53.83 Other fatigue; K90.9 Intestinal malabsorption, unspecified; N18.3 Chronic kidney disease, stage 3 (moderate); I48.91 Unspecified atrial fibrillation; E78.5 Hyperlipidemia, unspecified; Z79.899 Other long term (current) drug therapy
CPT/HCPCS: 36415; 80053; 80061; 82306; 82607; 83036; 83735; 83880; 84443; 85025; 96372; G0463; J3420

== ENCOUNTER → 2020-05-07 | Outpatient (CLI) | payer MEDICARE, OTHER ==
[2020-05-07 13:30] VITALS: BP 129/74
[2020-05-07 14:30] VITALS: BP 127/72
[2020-05-07 16:09] LABS: Basophils # (auto) 0 10 ^3/uL (0-0.2); Basophils % (auto) 0.7 % (0.0-2.0); Eosinophils # (auto) 0.3 10 ^3/uL (0-0.8); Eosinophils % (auto) 4.9 % (0.0-7.0); Hematocrit 38.9 % (36.0-46.0); Hemoglobin 12.5 g/dL (12.2-16.2); Lymphocytes # (auto) 0.9 10 ^3/uL (0.4-5.4); Lymphocytes % (auto) 16.6 % (10.0-50.0); Mean Corpuscular Hemoglobin 29.8 pg (28.0-32.0); Mean Corpuscular Hgb Conc. 32.2 g/dL (32.0-36.0); Mean Corpuscular Volume 92.5 fL (80.0-100.0); Monocytes # (auto) 0.4 10 ^3/uL (0-1.3); Monocytes % (auto) 6.8 % (0.0-12.0); Neutrophils # (auto) 3.8 10 ^3/uL (1.6-8.6); Platelet Count (auto) 188 10^3/uL (140-450); Red Cell Distribution Width 16.1 % (11.8-14.3); White Blood Cell 5.3 10^3/uL (4.4-10.8)
[2020-05-07 16:23] LABS: Albumin 3.2 g/dL (3.4-5.0); BUN/Creatinine Ratio 15.8; Calcium 8.4 mg/dL (8.5-10.1); Potassium 4.1 mmol/L (3.5-5.1)
[2020-05-07 16:25] LABS: Bilirubin, Total 0.9 mg/dL (0.2-1.0); Total Protein 6.1 g/dL (6.4-8.2)
== END | disposition home or self-care (01) ==
LOC: CHF HDHVI 12:54
PROVIDERS: ATTEND Internal Medicine Cardiovascular Disease
DX: I13.0 Hypertensive heart and chronic kidney disease with heart failure and stage 1 through stage 4 chronic kidney disease, or unspecified chronic kidney disease (principal); I27.21 Secondary pulmonary arterial hypertension; D64.9 Anemia, unspecified; I50.23 Acute on chronic systolic (congestive) heart failure; E83.40 Disorders of magnesium metabolism, unspecified; I48.91 Unspecified atrial fibrillation; E66.9 Obesity, unspecified; N18.3 Chronic kidney disease, stage 3 (moderate); E78.5 Hyperlipidemia, unspecified; Z79.899 Other long term (current) drug therapy
CPT/HCPCS: 36415; 80053; 83735; 83880; 85025; 96372; G0463; J3420

== ENCOUNTER → 2020-06-26 | Outpatient (CLI) | payer MEDICARE, OTHER ==
[~2020-06-26] MED LIST changes: -DEXL60CA3 PO; +DEXL60CA4 PO
[2020-06-26 13:00] VITALS: BP 153/80
--- NOTE | 2020-06-26 13:00 | NUR ---
CLINIC PT ARRIVED TO THE CHF CLINIC FOR MONTHLY PAH EVAL AND TX. A/OX4, AMBULATORY WITH CRUTCHES. PT HAS AN INCREASE OF 7.3LBS SINCE LAST VISIT ON 05/07/20.
--- NOTE | 2020-06-26 13:30 | NUR ---
LABS DRAWN AND SENT
[2020-06-26 13:45] VITALS: BP 137/76
--- NOTE | 2020-06-26 13:45 | NUR ---
Discharge Instructions See e-MAR for any mediations given with this visit. Patient education given on disease process. Patient verbalized understanding. Previous labs reviewed. Patient discharged in stable condition with after care instructions and follow up appointment IN 1 MONTH. NOTE VIT B12 IM R DELTOID ADMIN BY ÁLVARO GARAY LOT#[id number] EXP 02/25
[2020-06-26 16:20] LABS: Albumin 3.6 g/dL (3.4-5.0); Potassium 3.9 mmol/L (3.5-5.1); Uric Acid 3.2 mg/dL (2.6-6.0); Urine Blood 1+ /uL (Negative); Urine Specific Gravity 1.016 (1.001-1.035)
[2020-06-26 16:24] LABS: BUN/Creatinine Ratio 17.2; Bilirubin, Direct 0.3 mg/dL (0-0.2); Bilirubin, Total 0.9 mg/dL (0.2-1.0); Phosphorus 3.7 mg/dL (2.5-4.90); Total Protein 6.7 g/dL (6.4-8.2)
[2020-06-26 16:29] LABS: Protein, Urine 18.8 mg/dL (0.0-11.9)
[2020-06-26 17:21] LABS: Basophils # (auto) 0 10 ^3/uL (0-0.2); Basophils % (auto) 0.5 % (0.0-2.0); Eosinophils # (auto) 0.2 10 ^3/uL (0-0.8); Eosinophils % (auto) 2.4 % (0.0-7.0); Hematocrit 38.9 % (36.0-46.0); Hemoglobin 12.4 g/dL (12.2-16.2); Lymphocytes # (auto) 0.9 10 ^3/uL (0.4-5.4); Lymphocytes % (auto) 13.7 % (10.0-50.0); Mean Corpuscular Hemoglobin 29.5 pg (28.0-32.0); Mean Corpuscular Hgb Conc. 31.9 g/dL (32.0-36.0); Mean Corpuscular Volume 92.3 fL (80.0-100.0); Monocytes # (auto) 0.3 10 ^3/uL (0-1.3); Monocytes % (auto) 5.5 % (0.0-12.0); Neutrophils # (auto) 4.9 10 ^3/uL (1.6-8.6); Neutrophils % (auto) 77.9 % (37.0-80.0); Platelet Count (auto) 230 10^3/uL (140-450); Red Blood Cells 4.22 10^6/uL (4.0-5.20); Red Cell Distribution Width 17.1 % (11.8-14.3); White Blood Cell 6.2 10^3/uL (4.4-10.8)
== END | disposition home or self-care (01) ==
LOC: CHF HDHVI 13:08
PROVIDERS: ATTEND Internal Medicine Cardiovascular Disease
DX: I13.0 Hypertensive heart and chronic kidney disease with heart failure and stage 1 through stage 4 chronic kidney disease, or unspecified chronic kidney disease (principal); E11.22 Type 2 diabetes mellitus with diabetic chronic kidney disease; N18.3 Chronic kidney disease, stage 3 (moderate); I50.22 Chronic systolic (congestive) heart failure; R53.83 Other fatigue; I48.91 Unspecified atrial fibrillation; E21.3 Hyperparathyroidism, unspecified; E78.5 Hyperlipidemia, unspecified; E56.9 Vitamin deficiency, unspecified; M10.9 Gout, unspecified; K90.9 Intestinal malabsorption, unspecified; E66.9 Obesity, unspecified
CPT/HCPCS: 36415; 80061; 80069; 80076; 81003; 82306; 82570; 83036; 83970; 84156; 84550; 85025; 96372; G0463; J3420

== ENCOUNTER → 2020-08-24 | Outpatient (CLI) | payer MEDICARE, OTHER ==
[~2020-08-24] VITALS: Ht 30.5 cm; Wt 133.5 kg
[2020-08-24 12:34] VITALS: BP 151/71
[2020-08-24 13:05] VITALS: BP 157/70
[2020-08-24 15:50] LABS: Basophils # (auto) 0 10 ^3/uL (0-0.2); Basophils % (auto) 0.6 % (0.0-2.0); Eosinophils # (auto) 0.1 10 ^3/uL (0-0.8); Eosinophils % (auto) 2.3 % (0.0-7.0); Hematocrit 39.1 % (36.0-46.0); Hemoglobin 12.7 g/dL (12.2-16.2); Lymphocytes # (auto) 0.9 10 ^3/uL (0.4-5.4); Lymphocytes % (auto) 14.5 % (10.0-50.0); Mean Corpuscular Hemoglobin 30.7 pg (28.0-32.0); Mean Corpuscular Hgb Conc. 32.6 g/dL (32.0-36.0); Mean Corpuscular Volume 94.2 fL (80.0-100.0); Monocytes # (auto) 0.4 10 ^3/uL (0-1.3); Monocytes % (auto) 6.1 % (0.0-12.0); Neutrophils # (auto) 4.7 10 ^3/uL (1.6-8.6); Neutrophils % (auto) 76.5 % (37.0-80.0); Nucleated Red Blood Cells % 0.1 %; Platelet Count (auto) 191 10^3/uL (140-450); Red Blood Cells 4.15 10^6/uL (4.0-5.20); Red Cell Distribution Width 16.6 % (11.8-14.3); White Blood Cell 6.2 10^3/uL (4.4-10.8)
[2020-08-24 15:58] LABS: Albumin 3.7 g/dL (3.4-5.0); Calcium 8.8 mg/dL (8.5-10.1); Magnesium 2.2 mg/dL (1.6-2.6); Potassium 3.9 mmol/L (3.5-5.1)
[2020-08-24 16:01] LABS: BUN/Creatinine Ratio 16.9; Bilirubin, Total 0.9 mg/dL (0.2-1.0); Total Protein 6.6 g/dL (6.4-8.2)
== END | disposition home or self-care (01) ==
LOC: CHF HDHVI 13:07
PROVIDERS: ATTEND Internal Medicine Cardiovascular Disease
DX: I27.0 Primary pulmonary hypertension (principal); R53.83 Other fatigue
CPT/HCPCS: 36415; 80053; 83735; 85025; 96372; G0463; J3420

== ENCOUNTER → 2020-09-22 | Outpatient (CLI) | payer MEDICARE, OTHER ==
[~2020-09-22] MED LIST changes: -CYANOCOBALAMIN (B-12) 1000 MCG/1 ML VIAL IM ONE; -CYANOCOBALAMIN (B-12) 1000 MCG/1 ML VIAL ONE
== END | disposition home or self-care (01) ==
LOC: Rad HDHVI 12:55
PROVIDERS: ATTEND Internal Medicine Cardiovascular Disease
DX: I50.43 Acute on chronic combined systolic (congestive) and diastolic (congestive) heart failure (principal); R00.2 Palpitations
CPT/HCPCS: 93306

== ENCOUNTER → 2020-10-09 | Outpatient (CLI) | payer MEDICARE, OTHER ==
[~2020-10-09] MED LIST changes: +CYANOCOBALAMIN (B-12) 1000 MCG/1 ML VIAL IM ONE; +CYANOCOBALAMIN (B-12) 1000 MCG/1 ML VIAL ONE
[2020-10-09 12:34] VITALS: BP 152/84
--- NOTE | 2020-10-09 12:34 | NUR ---
Patient into clinic for monthly PAH appt, AAOx4, ambulatory with crutches, breathing even and unlabored.
[2020-10-09 13:11] VITALS: BP 135/65
--- NOTE | 2020-10-09 13:11 | NUR ---
Discharge Instructions See e-MAR for any mediations given with this visit. Patient education given on disease process. Patient verbalized understanding. Previous labs reviewed. Patient discharged in stable condition with after care instructions and follow up appointment. Note B12 IM R deltoid admin by Tamar GARAY. F/U in one month.
[2020-10-09 16:07] LABS: Basophils # (auto) 0 10 ^3/uL (0-0.2); Basophils % (auto) 0.4 % (0.0-2.0); Eosinophils # (auto) 0.1 10 ^3/uL (0-0.8); Hematocrit 39.4 % (36.0-46.0); Hemoglobin 12.6 g/dL (12.2-16.2); Lymphocytes # (auto) 0.8 10 ^3/uL (0.4-5.4); Lymphocytes % (auto) 13.1 % (10.0-50.0); Mean Corpuscular Hemoglobin 29.8 pg (28.0-32.0); Mean Corpuscular Volume 93.1 fL (80.0-100.0); Monocytes # (auto) 0.4 10 ^3/uL (0-1.3); Monocytes % (auto) 6.2 % (0.0-12.0); Neutrophils % (auto) 78.3 % (37.0-80.0); Platelet Count (auto) 198 10^3/uL (140-450); Red Blood Cells 4.23 10^6/uL (4.0-5.20); Red Cell Distribution Width 16.1 % (11.8-14.3); White Blood Cell 6.4 10^3/uL (4.4-10.8)
[2020-10-09 16:23] LABS: Albumin 3.5 g/dL (3.4-5.0); Calcium 8.2 mg/dL (8.5-10.1); Magnesium 2.2 mg/dL (1.6-2.6); Potassium 3.2 mmol/L (3.5-5.1)
[2020-10-09 16:27] LABS: BUN/Creatinine Ratio 16.1; Bilirubin, Total 1.2 mg/dL (0.2-1.0); Total Protein 6.4 g/dL (6.4-8.2)
== END | disposition home or self-care (01) ==
LOC: CHF HDHVI 13:17
PROVIDERS: ATTEND Internal Medicine Cardiovascular Disease
DX: I27.21 Secondary pulmonary arterial hypertension (principal); I50.42 Chronic combined systolic (congestive) and diastolic (congestive) heart failure; R53.83 Other fatigue; I48.91 Unspecified atrial fibrillation; R06.02 Shortness of breath; E66.9 Obesity, unspecified
CPT/HCPCS: 36415; 80053; 83735; 85025; 96372; G0463; J3420

== ENCOUNTER → 2020-11-27 | Outpatient (CLI) | payer MEDICARE, OTHER ==
[~2020-11-27] MED LIST changes: +RIOC1TAB13 PO; -RIOC1TAB5 PO
[2020-11-27 14:23] VITALS: BP 146/68
[2020-11-27 14:57] VITALS: BP 154/65
[2020-11-27 15:27] LABS: Basophils # (auto) 0 10 ^3/uL (0-0.2); Basophils % (auto) 0.5 % (0.0-2.0); Eosinophils # (auto) 0.2 10 ^3/uL (0-0.8); Eosinophils % (auto) 2.4 % (0.0-7.0); Hemoglobin 13.4 g/dL (12.2-16.2); Lymphocytes % (auto) 14.3 % (10.0-50.0); Mean Corpuscular Hemoglobin 30.5 pg (28.0-32.0); Mean Corpuscular Hgb Conc. 33.5 g/dL (32.0-36.0); Mean Corpuscular Volume 91.1 fL (80.0-100.0); Monocytes # (auto) 0.4 10 ^3/uL (0-1.3); Monocytes % (auto) 5.9 % (0.0-12.0); Neutrophils # (auto) 5.1 10 ^3/uL (1.6-8.6); Neutrophils % (auto) 76.9 % (37.0-80.0); Nucleated Red Blood Cells % 0.1 %; Platelet Count (auto) 195 10^3/uL (140-450); Red Blood Cells 4.39 10^6/uL (4.0-5.20); Red Cell Distribution Width 15.8 % (11.8-14.3); White Blood Cell 6.6 10^3/uL (4.4-10.8)
[2020-11-27 15:49] LABS: Albumin 3.6 g/dL (3.4-5.0); Calcium 8.6 mg/dL (8.5-10.1); Potassium 3.6 mmol/L (3.5-5.1)
[2020-11-27 15:52] LABS: BUN/Creatinine Ratio 16.3; Total Protein 6.9 g/dL (6.4-8.2)
== END | disposition home or self-care (01) ==
LOC: CHF HDHVI 14:27
PROVIDERS: ATTEND Internal Medicine Cardiovascular Disease
DX: I27.0 Primary pulmonary hypertension (principal); R53.83 Other fatigue; I50.42 Chronic combined systolic (congestive) and diastolic (congestive) heart failure; I48.91 Unspecified atrial fibrillation; E66.9 Obesity, unspecified
CPT/HCPCS: 36415; 80053; 83735; 85025; 96372; G0463; J3420

== ENCOUNTER → 2021-02-12 | Outpatient (CLI) | payer MEDICARE, OTHER ==
[2021-02-12 12:59] VITALS: BP 138/58
[2021-02-12 13:24] VITALS: BP 126/61
[2021-02-12 15:36] LABS: Basophils # (auto) 0 10 ^3/uL (0-0.2); Basophils % (auto) 0.8 % (0.0-2.0); Eosinophils # (auto) 0.1 10 ^3/uL (0-0.8); Eosinophils % (auto) 2.4 % (0.0-7.0); Hematocrit 37.5 % (36.0-46.0); Hemoglobin 12.5 g/dL (12.2-16.2); Lymphocytes # (auto) 0.8 10 ^3/uL (0.4-5.4); Lymphocytes % (auto) 14.2 % (10.0-50.0); Mean Corpuscular Hemoglobin 30.4 pg (28.0-32.0); Mean Corpuscular Hgb Conc. 33.4 g/dL (32.0-36.0); Monocytes # (auto) 0.4 10 ^3/uL (0-1.3); Monocytes % (auto) 6.7 % (0.0-12.0); Neutrophils % (auto) 75.9 % (37.0-80.0); Nucleated Red Blood Cells % 0.1 %; Platelet Count (auto) 179 10^3/uL (140-450); Red Blood Cells 4.12 10^6/uL (4.0-5.20); Red Cell Distribution Width 16.2 % (11.8-14.3); White Blood Cell 5.3 10^3/uL (4.4-10.8)
[2021-02-12 15:43] LABS: Albumin 3.5 g/dL (3.4-5.0); Calcium 8.8 mg/dL (8.5-10.1); Magnesium 2.1 mg/dL (1.6-2.6); Potassium 3.9 mmol/L (3.5-5.1)
[2021-02-12 15:46] LABS: BUN/Creatinine Ratio 13.8; Bilirubin, Total 0.9 mg/dL (0.2-1.0); Total Protein 6.3 g/dL (6.4-8.2)
== END | disposition home or self-care (01) ==
LOC: CHF HDHVI 13:12
PROVIDERS: ATTEND Internal Medicine Cardiovascular Disease
DX: I27.0 Primary pulmonary hypertension (principal); I50.42 Chronic combined systolic (congestive) and diastolic (congestive) heart failure; I48.91 Unspecified atrial fibrillation; Z79.899 Other long term (current) drug therapy
CPT/HCPCS: 36415; 80053; 83735; 85025; 96372; G0463; J3420

== ENCOUNTER → 2021-04-26 | Outpatient (CLI) | payer MEDICARE, OTHER ==
[2021-04-26 13:10] VITALS: BP 128/58
[2021-04-26 13:37] VITALS: BP 151/71
[2021-04-26 15:49] LABS: Basophils # (auto) 0 10 ^3/uL (0-0.2); Basophils % (auto) 0.4 % (0.0-2.0); Eosinophils # (auto) 0.1 10 ^3/uL (0-0.8); Eosinophils % (auto) 2.2 % (0.0-7.0); Hematocrit 38.2 % (36.0-46.0); Hemoglobin 12.8 g/dL (12.2-16.2); Lymphocytes # (auto) 1.2 10 ^3/uL (0.4-5.4); Lymphocytes % (auto) 17.5 % (10.0-50.0); Mean Corpuscular Hemoglobin 30.9 pg (28.0-32.0); Mean Corpuscular Hgb Conc. 33.5 g/dL (32.0-36.0); Mean Corpuscular Volume 92.3 fL (80.0-100.0); Monocytes # (auto) 0.4 10 ^3/uL (0-1.3); Monocytes % (auto) 6.3 % (0.0-12.0); Neutrophils # (auto) 4.9 10 ^3/uL (1.6-8.6); Neutrophils % (auto) 73.6 % (37.0-80.0); Nucleated Red Blood Cells % 0.1 %; Platelet Count (auto) 242 10^3/uL (140-450); Red Blood Cells 4.14 10^6/uL (4.0-5.20); Red Cell Distribution Width 16.1 % (11.8-14.3); White Blood Cell 6.7 10^3/uL (4.4-10.8)
[2021-04-26 15:59] LABS: Albumin 3.4 g/dL (3.4-5.0); Calcium 8.3 mg/dL (8.5-10.1)
[2021-04-26 16:00] LABS: BUN/Creatinine Ratio 15.1
[2021-04-26 16:02] LABS: Bilirubin, Total 0.9 mg/dL (0.2-1.0); Total Protein 6.6 g/dL (6.4-8.2)
== END | disposition home or self-care (01) ==
LOC: CHF HDHVI 11:31
PROVIDERS: ATTEND Internal Medicine Cardiovascular Disease
DX: I27.0 Primary pulmonary hypertension (principal); R53.83 Other fatigue
CPT/HCPCS: 36415; 80053; 83735; 85025; 96372; G0463; J3420

== ENCOUNTER → 2021-05-11 | Outpatient (CLI) | payer MEDICARE, OTHER ==
[~2021-05-11] MED LIST changes: -CYANOCOBALAMIN (B-12) 1000 MCG/1 ML VIAL IM ONE; -CYANOCOBALAMIN (B-12) 1000 MCG/1 ML VIAL ONE
[2021-05-11 13:00] VITALS: BP 132/57
[2021-05-11 13:32] VITALS: BP 138/65
[2021-05-11 15:23] LABS: Urine Blood TRACE /uL (Negative); Urine Specific Gravity 1.017 (1.001-1.035)
[2021-05-11 15:26] LABS: BUN/Creatinine Ratio 20.8; Calcium 8.6 mg/dL (8.5-10.1); Uric Acid 5.2 mg/dL (2.6-6.0)
[2021-05-11 15:42] LABS: Creatinine, Urine 96 mg/dL (30.0-125.0); Protein, Urine 11.8 mg/dL (0.0-11.9)
== END | disposition home or self-care (01) ==
LOC: CHF HDHVI 13:10
PROVIDERS: ATTEND Internal Medicine Cardiovascular Disease
DX: I27.0 Primary pulmonary hypertension (principal); N18.31 Chronic kidney disease, stage 3a; D63.1 Anemia in chronic kidney disease; E21.3 Hyperparathyroidism, unspecified; R80.9 Proteinuria, unspecified; M10.9 Gout, unspecified
CPT/HCPCS: 36415; 80048; 81003; 82570; 83036; 84156; 84550; G0463

== ENCOUNTER → 2021-07-30 | Outpatient (CLI) | payer MEDICARE, OTHER ==
[~2021-07-30] MED LIST changes: +CYANOCOBALAMIN (B-12) 1000 MCG/1 ML VIAL IM ONE; +CYANOCOBALAMIN (B-12) 1000 MCG/1 ML VIAL ONE
[2021-07-30 10:59] VITALS: BP 140/74
[2021-07-30 11:24] LABS: Basophils # (auto) 0.1 10 ^3/uL (0-0.2); Basophils % (auto) 0.8 % (0.0-2.0); Eosinophils # (auto) 0.2 10 ^3/uL (0-0.8); Eosinophils % (auto) 2.4 % (0.0-7.0); Hematocrit 39.8 % (36.0-46.0); Hemoglobin 13.1 g/dL (12.2-16.2); Lymphocytes % (auto) 13.9 % (10.0-50.0); Mean Corpuscular Hemoglobin 29.8 pg (28.0-32.0); Mean Corpuscular Volume 90.3 fL (80.0-100.0); Monocytes # (auto) 0.5 10 ^3/uL (0-1.3); Neutrophils # (auto) 5.3 10 ^3/uL (1.6-8.6); Neutrophils % (auto) 75.9 % (37.0-80.0); Red Blood Cells 4.41 10^6/uL (4.0-5.20); Red Cell Distribution Width 14.7 % (11.8-14.3)
[2021-07-30 11:26] VITALS: BP 141/65
[2021-07-30 12:37] LABS: Albumin 3.3 g/dL (3.4-5.0); Calcium 8.4 mg/dL (8.5-10.1); Magnesium 2.2 mg/dL (1.6-2.6); Potassium 3.9 mmol/L (3.5-5.1)
[2021-07-30 12:39] LABS: BUN/Creatinine Ratio 17.2; Bilirubin, Total 0.7 mg/dL (0.2-1.0); Total Protein 6.7 g/dL (6.4-8.2)
== END | disposition home or self-care (01) ==
LOC: CHF HDHVI 11:14
PROVIDERS: ATTEND Internal Medicine Cardiovascular Disease
DX: I27.21 Secondary pulmonary arterial hypertension (principal); I13.0 Hypertensive heart and chronic kidney disease with heart failure and stage 1 through stage 4 chronic kidney disease, or unspecified chronic kidney disease; E11.22 Type 2 diabetes mellitus with diabetic chronic kidney disease; I50.42 Chronic combined systolic (congestive) and diastolic (congestive) heart failure; N18.31 Chronic kidney disease, stage 3a; D63.1 Anemia in chronic kidney disease; R53.83 Other fatigue; Z79.899 Other long term (current) drug therapy
CPT/HCPCS: 36415; 80053; 83735; 85025; 96372; G0463; J3420

== ENCOUNTER → 2021-10-21 | Outpatient (CLI) | payer MEDICARE, OTHER ==
[2021-10-21 12:58] VITALS: BP 140/63
[2021-10-21 13:27] VITALS: BP 132/57
[2021-10-21 15:12] LABS: Basophils # (auto) 0 10 ^3/uL (0-0.2); Basophils % (auto) 0.7 % (0.0-2.0); Eosinophils # (auto) 0.2 10 ^3/uL (0-0.8); Eosinophils % (auto) 2.8 % (0.0-7.0); Hematocrit 39.6 % (36.0-46.0); Hemoglobin 12.8 g/dL (12.2-16.2); Lymphocytes # (auto) 0.9 10 ^3/uL (0.4-5.4); Lymphocytes % (auto) 14.9 % (10.0-50.0); Mean Corpuscular Hemoglobin 28.9 pg (28.0-32.0); Mean Corpuscular Hgb Conc. 32.3 g/dL (32.0-36.0); Mean Corpuscular Volume 89.4 fL (80.0-100.0); Monocytes # (auto) 0.4 10 ^3/uL (0-1.3); Monocytes % (auto) 6.2 % (0.0-12.0); Neutrophils # (auto) 4.3 10 ^3/uL (1.6-8.6); Neutrophils % (auto) 75.4 % (37.0-80.0); Nucleated Red Blood Cells % 0.1 %; Red Blood Cells 4.42 10^6/uL (4.0-5.20); Red Cell Distribution Width 15.4 % (11.8-14.3); White Blood Cell 5.8 10^3/uL (4.4-10.8)
[2021-10-21 15:26] LABS: Albumin 3.5 g/dL (3.4-5.0); Calcium 8.4 mg/dL (8.5-10.1); Potassium 3.7 mmol/L (3.5-5.1); Uric Acid 4.8 mg/dL (2.6-6.0)
[2021-10-21 15:30] LABS: BUN/Creatinine Ratio 16.9; Bilirubin, Total 0.7 mg/dL (0.2-1.0); Creatinine, Urine 114 mg/dL (30.0-125.0); Phosphorus 3.3 mg/dL (2.5-4.90); Protein, Urine 26.9 mg/dL (0.0-11.9); Total Protein 6.4 g/dL (6.4-8.2)
[2021-10-21 16:14] LABS: Urine Blood TRACE /uL (Negative); Urine Specific Gravity 1.017 (1.001-1.035)
== END | disposition home or self-care (01) ==
LOC: CHF HDHVI 12:59
PROVIDERS: ATTEND Internal Medicine Cardiovascular Disease
DX: I27.0 Primary pulmonary hypertension (principal); E56.9 Vitamin deficiency, unspecified; E21.3 Hyperparathyroidism, unspecified; N18.31 Chronic kidney disease, stage 3a; M10.9 Gout, unspecified; D63.1 Anemia in chronic kidney disease; R80.9 Proteinuria, unspecified
CPT/HCPCS: 36415; 80053; 80069; 81003; 82306; 82570; 83735; 83970; 84156; 84550; 85025; 96372; G0463; J3420

== ENCOUNTER → 2021-12-03 | Outpatient (CLI) | payer MEDICARE, OTHER ==
[2021-12-03 13:05] VITALS: BP 158/67
[2021-12-03 13:29] VITALS: BP 144/76
[2021-12-03 15:02] LABS: Basophils # (auto) 0 10 ^3/uL (0-0.2); Basophils % (auto) 0.6 % (0.0-2.0); Eosinophils # (auto) 0.1 10 ^3/uL (0-0.8); Eosinophils % (auto) 1.9 % (0.0-7.0); Hematocrit 38.1 % (36.0-46.0); Hemoglobin 12.3 g/dL (12.2-16.2); Lymphocytes % (auto) 17.2 % (10.0-50.0); Mean Corpuscular Hemoglobin 29.1 pg (28.0-32.0); Mean Corpuscular Hgb Conc. 32.4 g/dL (32.0-36.0); Mean Corpuscular Volume 89.6 fL (80.0-100.0); Monocytes # (auto) 0.3 10 ^3/uL (0-1.3); Monocytes % (auto) 4.9 % (0.0-12.0); Neutrophils # (auto) 4.5 10 ^3/uL (1.6-8.6); Neutrophils % (auto) 75.4 % (37.0-80.0); Red Blood Cells 4.25 10^6/uL (4.0-5.20); Red Cell Distribution Width 15.4 % (11.8-14.3)
[2021-12-03 15:05] LABS: Albumin 3.7 g/dL (3.4-5.0); Calcium 8.5 mg/dL (8.5-10.1); Magnesium 2.4 mg/dL (1.6-2.6)
[2021-12-03 15:14] LABS: BUN/Creatinine Ratio 16.8; Bilirubin, Total 0.7 mg/dL (0.2-1.0); Total Protein 6.8 g/dL (6.4-8.2)
== END | disposition home or self-care (01) ==
LOC: CHF HDHVI 10:54
PROVIDERS: ATTEND Internal Medicine Cardiovascular Disease
DX: I27.21 Secondary pulmonary arterial hypertension (principal); I13.0 Hypertensive heart and chronic kidney disease with heart failure and stage 1 through stage 4 chronic kidney disease, or unspecified chronic kidney disease; E11.22 Type 2 diabetes mellitus with diabetic chronic kidney disease; N18.31 Chronic kidney disease, stage 3a; D63.1 Anemia in chronic kidney disease; I50.42 Chronic combined systolic (congestive) and diastolic (congestive) heart failure; Z79.899 Other long term (current) drug therapy
CPT/HCPCS: 36415; 80053; 83735; 85025; 96372; G0463; J3420

== ENCOUNTER → 2022-02-28 | Outpatient (CLI) | payer MEDICARE, OTHER ==
[2022-02-28 13:00] VITALS: BP 159/77
[2022-02-28 13:29] VITALS: BP 121/56
[2022-02-28 16:40] LABS: Basophils # (auto) 0 10 ^3/uL (0-0.2); Basophils % (auto) 0.7 % (0.0-2.0); Eosinophils # (auto) 0.2 10 ^3/uL (0-0.8); Eosinophils % (auto) 2.9 % (0.0-7.0); Hematocrit 36.6 % (36.0-46.0); Lymphocytes # (auto) 0.9 10 ^3/uL (0.4-5.4); Lymphocytes % (auto) 13.6 % (10.0-50.0); Mean Corpuscular Hemoglobin 28.8 pg (28.0-32.0); Mean Corpuscular Hgb Conc. 32.8 g/dL (32.0-36.0); Mean Corpuscular Volume 87.7 fL (80.0-100.0); Monocytes # (auto) 0.4 10 ^3/uL (0-1.3); Monocytes % (auto) 5.9 % (0.0-12.0); Neutrophils # (auto) 4.9 10 ^3/uL (1.6-8.6); Neutrophils % (auto) 76.9 % (37.0-80.0); Red Blood Cells 4.18 10^6/uL (4.0-5.20); White Blood Cell 6.4 10^3/uL (4.4-10.8)
[2022-02-28 16:49] LABS: Albumin 3.6 g/dL (3.4-5.0); Calcium 8.7 mg/dL (8.5-10.1); Magnesium 2.2 mg/dL (1.6-2.6)
[2022-02-28 16:53] LABS: Bilirubin, Total 0.8 mg/dL (0.2-1.0); Total Protein 6.9 g/dL (6.4-8.2)
== END | disposition home or self-care (01) ==
LOC: CHF HDHVI 13:00
PROVIDERS: ATTEND Internal Medicine Cardiovascular Disease
DX: I27.21 Secondary pulmonary arterial hypertension (principal); I13.0 Hypertensive heart and chronic kidney disease with heart failure and stage 1 through stage 4 chronic kidney disease, or unspecified chronic kidney disease; E11.22 Type 2 diabetes mellitus with diabetic chronic kidney disease; N18.31 Chronic kidney disease, stage 3a; I50.42 Chronic combined systolic (congestive) and diastolic (congestive) heart failure; Z79.899 Other long term (current) drug therapy
CPT/HCPCS: 36415; 80053; 83735; 85025; 96372; G0463; J3420

== ENCOUNTER → 2022-03-31 | Outpatient (CLI) | payer MEDICARE, OTHER ==
[2022-03-31 12:50] VITALS: BP 137/60
[2022-03-31 13:20] VITALS: BP 135/60
[2022-03-31 16:27] LABS: Basophils # (auto) 0 10 ^3/uL (0-0.2); Basophils % (auto) 0.6 % (0.0-2.0); Eosinophils # (auto) 0.2 10 ^3/uL (0-0.8); Eosinophils % (auto) 2.4 % (0.0-7.0); Hematocrit 37.5 % (36.0-46.0); Hemoglobin 12.4 g/dL (12.2-16.2); Lymphocytes # (auto) 1.1 10 ^3/uL (0.4-5.4); Lymphocytes % (auto) 16.1 % (10.0-50.0); Mean Corpuscular Hemoglobin 28.8 pg (28.0-32.0); Mean Corpuscular Volume 87.3 fL (80.0-100.0); Monocytes # (auto) 0.4 10 ^3/uL (0-1.3); Monocytes % (auto) 6.3 % (0.0-12.0); Neutrophils # (auto) 5.1 10 ^3/uL (1.6-8.6); Neutrophils % (auto) 74.6 % (37.0-80.0); Nucleated Red Blood Cells % 0.2 %; Red Cell Distribution Width 16.1 % (11.8-14.3); White Blood Cell 6.8 10^3/uL (4.4-10.8)
[2022-03-31 16:35] LABS: Albumin 3.5 g/dL (3.4-5.0); Calcium 8.6 mg/dL (8.5-10.1); Magnesium 2.5 mg/dL (1.6-2.6); Potassium 3.9 mmol/L (3.5-5.1)
[2022-03-31 16:39] LABS: Bilirubin, Total 0.8 mg/dL (0.2-1.0); Total Protein 6.7 g/dL (6.4-8.2)
== END | disposition home or self-care (01) ==
LOC: CHF HDHVI 12:55
PROVIDERS: ATTEND Internal Medicine Cardiovascular Disease
DX: I27.0 Primary pulmonary hypertension (principal)
CPT/HCPCS: 36415; 80053; 83735; 85025; 96372; G0463; J3420

== ENCOUNTER → 2022-05-11 | Outpatient (CLI) | payer MEDICARE, OTHER ==
[2022-05-11 13:01] VITALS: BP 114/54
[2022-05-11 13:25] VITALS: BP 133/78
[2022-05-11 16:30] LABS: Urine Blood TRACE /uL (Negative); Urine Specific Gravity 1.015 (1.001-1.035)
[2022-05-11 16:38] LABS: Basophils # (auto) 0 10 ^3/uL (0-0.2); Basophils % (auto) 0.6 % (0.0-2.0); Eosinophils # (auto) 0.1 10 ^3/uL (0-0.8); Eosinophils % (auto) 2.5 % (0.0-7.0); Hematocrit 39.9 % (36.0-46.0); Hemoglobin 12.6 g/dL (12.2-16.2); Lymphocytes # (auto) 0.8 10 ^3/uL (0.4-5.4); Mean Corpuscular Hemoglobin 27.7 pg (28.0-32.0); Mean Corpuscular Hgb Conc. 31.6 g/dL (32.0-36.0); Mean Corpuscular Volume 87.6 fL (80.0-100.0); Monocytes # (auto) 0.3 10 ^3/uL (0-1.3); Monocytes % (auto) 5.4 % (0.0-12.0); Neutrophils # (auto) 4.4 10 ^3/uL (1.6-8.6); Neutrophils % (auto) 77.5 % (37.0-80.0); Red Blood Cells 4.55 10^6/uL (4.0-5.20); White Blood Cell 5.7 10^3/uL (4.4-10.8)
[2022-05-11 16:43] LABS: Potassium 3.9 mmol/L (3.5-5.1)
[2022-05-11 16:53] LABS: Albumin 3.6 g/dL (3.4-5.0); BUN/Creatinine Ratio 16.1; Bilirubin, Total 0.8 mg/dL (0.2-1.0); Calcium 8.7 mg/dL (8.5-10.1); Creatinine, Urine 81 mg/dL (30.0-125.0); Magnesium 2.1 mg/dL (1.6-2.6); Phosphorus 3.4 mg/dL (2.5-4.90); Protein, Urine 16.4 mg/dL (0.0-11.9); Total Protein 6.6 g/dL (6.4-8.2); Uric Acid 4.8 mg/dL (2.6-6.0)
== END | disposition home or self-care (01) ==
LOC: CHF HDHVI 12:58
PROVIDERS: ATTEND Internal Medicine Cardiovascular Disease
DX: I27.21 Secondary pulmonary arterial hypertension (principal); R53.83 Other fatigue; M10.9 Gout, unspecified; I13.0 Hypertensive heart and chronic kidney disease with heart failure and stage 1 through stage 4 chronic kidney disease, or unspecified chronic kidney disease; E11.22 Type 2 diabetes mellitus with diabetic chronic kidney disease; N18.31 Chronic kidney disease, stage 3a; I50.42 Chronic combined systolic (congestive) and diastolic (congestive) heart failure; Z79.899 Other long term (current) drug therapy
CPT/HCPCS: 36415; 80053; 81003; 82306; 82570; 82607; 83735; 83880; 83970; 84156; 84550; 85025; 96372; G0463; J3420; 80069

== ENCOUNTER → 2022-06-22 | Outpatient (CLI) | payer MEDICARE, OTHER ==
[2022-06-22 12:55] VITALS: BP 123/59
[2022-06-22 13:10] VITALS: BP 137/63
[2022-06-22 16:02] LABS: Basophils # (auto) 0 10 ^3/uL (0-0.2); Basophils % (auto) 0.6 % (0.0-2.0); Eosinophils # (auto) 0.1 10 ^3/uL (0-0.8); Eosinophils % (auto) 2.3 % (0.0-7.0); Hemoglobin 12.7 g/dL (12.2-16.2); Lymphocytes % (auto) 17.3 % (10.0-50.0); Mean Corpuscular Hemoglobin 28.6 pg (28.0-32.0); Mean Corpuscular Hgb Conc. 31.9 g/dL (32.0-36.0); Mean Corpuscular Volume 89.6 fL (80.0-100.0); Monocytes # (auto) 0.4 10 ^3/uL (0-1.3); Monocytes % (auto) 6.5 % (0.0-12.0); Neutrophils # (auto) 4.1 10 ^3/uL (1.6-8.6); Neutrophils % (auto) 73.3 % (37.0-80.0); Nucleated Red Blood Cells % 0.1 %; Red Blood Cells 4.46 10^6/uL (4.0-5.20); Red Cell Distribution Width 16.9 % (11.8-14.3); White Blood Cell 5.7 10^3/uL (4.4-10.8)
[2022-06-22 16:09] LABS: Albumin 3.8 g/dL (3.4-5.0); Calcium 9.1 mg/dL (8.5-10.1); Magnesium 2.2 mg/dL (1.6-2.6); Potassium 4.2 mmol/L (3.5-5.1)
[2022-06-22 16:19] LABS: Bilirubin, Total 0.7 mg/dL (0.2-1.0); Total Protein 6.7 g/dL (6.4-8.2)
== END | disposition home or self-care (01) ==
LOC: CHF HDHVI 12:59
PROVIDERS: ATTEND Internal Medicine Cardiovascular Disease
DX: I27.21 Secondary pulmonary arterial hypertension (principal); I49.9 Cardiac arrhythmia, unspecified; I13.0 Hypertensive heart and chronic kidney disease with heart failure and stage 1 through stage 4 chronic kidney disease, or unspecified chronic kidney disease; E11.22 Type 2 diabetes mellitus with diabetic chronic kidney disease; N18.31 Chronic kidney disease, stage 3a; I50.42 Chronic combined systolic (congestive) and diastolic (congestive) heart failure; M10.9 Gout, unspecified; Z79.899 Other long term (current) drug therapy
CPT/HCPCS: 36415; 80053; 83735; 85025; 96372; G0463; J3420

== ENCOUNTER → 2022-07-04 | Outpatient (CLI) | payer MEDICARE, OTHER ==
[~2022-07-04] MED LIST changes: -CYANOCOBALAMIN (B-12) 1000 MCG/1 ML VIAL IM ONE; -CYANOCOBALAMIN (B-12) 1000 MCG/1 ML VIAL ONE
== END | disposition home or self-care (01) ==
LOC: Rad HDHVI 12:58
PROVIDERS: ATTEND Internal Medicine Cardiovascular Disease
DX: I08.0 Rheumatic disorders of both mitral and aortic valves (principal); R06.02 Shortness of breath
CPT/HCPCS: 93306

== ENCOUNTER → 2022-07-20 | Outpatient (CLI) | payer MEDICARE, OTHER ==
[~2022-07-20] MED LIST changes: +CYANOCOBALAMIN (B-12) 1000 MCG/1 ML VIAL IM ONE; +CYANOCOBALAMIN (B-12) 1000 MCG/1 ML VIAL ONE
[2022-07-20 13:00] VITALS: BP 152/71
[2022-07-20 13:30] VITALS: BP 109/51
[2022-07-20 16:07] LABS: Basophils # (auto) 0.1 10 ^3/uL (0-0.2); Basophils % (auto) 0.9 % (0.0-2.0); Eosinophils # (auto) 0.2 10 ^3/uL (0-0.8); Eosinophils % (auto) 2.6 % (0.0-7.0); Hematocrit 38.5 % (36.0-46.0); Hemoglobin 12.2 g/dL (12.2-16.2); Lymphocytes % (auto) 17.1 % (10.0-50.0); Mean Corpuscular Hemoglobin 28.8 pg (28.0-32.0); Mean Corpuscular Hgb Conc. 31.6 g/dL (32.0-36.0); Mean Corpuscular Volume 91.1 fL (80.0-100.0); Monocytes # (auto) 0.4 10 ^3/uL (0-1.3); Monocytes % (auto) 6.6 % (0.0-12.0); Neutrophils # (auto) 4.3 10 ^3/uL (1.6-8.6); Neutrophils % (auto) 72.8 % (37.0-80.0); Nucleated Red Blood Cells % 0.1 %; Red Blood Cells 4.22 10^6/uL (4.0-5.20); Red Cell Distribution Width 16.8 % (11.8-14.3); White Blood Cell 5.9 10^3/uL (4.4-10.8)
[2022-07-20 16:24] LABS: Albumin 3.5 g/dL (3.4-5.0); Calcium 8.5 mg/dL (8.5-10.1); Potassium 4.1 mmol/L (3.5-5.1)
[2022-07-20 17:02] LABS: BUN/Creatinine Ratio 17.9
[2022-07-20 17:03] LABS: Bilirubin, Total 0.8 mg/dL (0.2-1.0); Total Protein 6.4 g/dL (6.4-8.2)
== END | disposition home or self-care (01) ==
LOC: CHF HDHVI 13:06
PROVIDERS: ATTEND Internal Medicine Cardiovascular Disease
DX: I27.21 Secondary pulmonary arterial hypertension (principal); I13.0 Hypertensive heart and chronic kidney disease with heart failure and stage 1 through stage 4 chronic kidney disease, or unspecified chronic kidney disease; E11.22 Type 2 diabetes mellitus with diabetic chronic kidney disease; N18.31 Chronic kidney disease, stage 3a; I50.42 Chronic combined systolic (congestive) and diastolic (congestive) heart failure; Z79.899 Other long term (current) drug therapy
CPT/HCPCS: 36415; 80053; 83735; 85025; 96372; G0463; J3420

== ENCOUNTER → 2022-08-18 | Outpatient (CLI) | payer MEDICARE, OTHER ==
[2022-08-18 13:00] VITALS: BP 130/48
[2022-08-18 13:30] VITALS: BP 118/39
[2022-08-18 16:51] LABS: Basophils # (auto) 0 10 ^3/uL (0-0.2); Basophils % (auto) 0.6 % (0.0-2.0); Eosinophils # (auto) 0.1 10 ^3/uL (0-0.8); Eosinophils % (auto) 2.2 % (0.0-7.0); Hematocrit 39.3 % (36.0-46.0); Hemoglobin 12.6 g/dL (12.2-16.2); Lymphocytes # (auto) 0.9 10 ^3/uL (0.4-5.4); Lymphocytes % (auto) 14.9 % (10.0-50.0); Mean Corpuscular Hemoglobin 29.2 pg (28.0-32.0); Mean Corpuscular Volume 91.3 fL (80.0-100.0); Monocytes # (auto) 0.4 10 ^3/uL (0-1.3); Monocytes % (auto) 6.6 % (0.0-12.0); Neutrophils # (auto) 4.7 10 ^3/uL (1.6-8.6); Neutrophils % (auto) 75.7 % (37.0-80.0); Red Blood Cells 4.31 10^6/uL (4.0-5.20); Red Cell Distribution Width 16.2 % (11.8-14.3); White Blood Cell 6.2 10^3/uL (4.4-10.8)
[2022-08-18 16:54] LABS: Magnesium 1.9 mg/dL (1.6-2.6)
[2022-08-18 17:05] LABS: Albumin 3.5 g/dL (3.4-5.0); BUN/Creatinine Ratio 13.1; Bilirubin, Total 0.9 mg/dL (0.2-1.0); Calcium 8.5 mg/dL (8.5-10.1); Total Protein 6.6 g/dL (6.4-8.2)
== END | disposition home or self-care (01) ==
LOC: CHF HDHVI 13:03
PROVIDERS: ATTEND Internal Medicine Cardiovascular Disease
DX: I27.21 Secondary pulmonary arterial hypertension (principal); E78.5 Hyperlipidemia, unspecified; I13.0 Hypertensive heart and chronic kidney disease with heart failure and stage 1 through stage 4 chronic kidney disease, or unspecified chronic kidney disease; E11.22 Type 2 diabetes mellitus with diabetic chronic kidney disease; N18.31 Chronic kidney disease, stage 3a; I50.42 Chronic combined systolic (congestive) and diastolic (congestive) heart failure; Z79.899 Other long term (current) drug therapy
CPT/HCPCS: 36415; 80053; 80061; 83735; 85025; 96372; G0463; J3420

== ENCOUNTER → 2022-09-22 | Outpatient (CLI) | payer MEDICARE, OTHER ==
[~2022-09-22] VITALS: Ht 165.1 cm; Wt 135.4 kg
[~2022-09-22] MED LIST changes: -CYANOCOBALAMIN (B-12) 1000 MCG/1 ML VIAL ONE
[2022-09-22 13:00] VITALS: BP 141/78
[2022-09-22 13:16] VITALS: BP 133/49
[2022-09-22 16:50] LABS: Basophils # (auto) 0 10 ^3/uL (0-0.2); Basophils % (auto) 0.6 % (0.0-2.0); Eosinophils # (auto) 0.1 10 ^3/uL (0-0.8); Eosinophils % (auto) 2.3 % (0.0-7.0); Hematocrit 38.9 % (36.0-46.0); Hemoglobin 12.4 g/dL (12.2-16.2); Lymphocytes # (auto) 0.9 10 ^3/uL (0.4-5.4); Lymphocytes % (auto) 13.7 % (10.0-50.0); Mean Corpuscular Hemoglobin 29.4 pg (28.0-32.0); Mean Corpuscular Volume 91.9 fL (80.0-100.0); Monocytes # (auto) 0.4 10 ^3/uL (0-1.3); Monocytes % (auto) 6.8 % (0.0-12.0); Neutrophils # (auto) 4.8 10 ^3/uL (1.6-8.6); Neutrophils % (auto) 76.6 % (37.0-80.0); Nucleated Red Blood Cells % 0.1 %; Red Blood Cells 4.23 10^6/uL (4.0-5.20); Red Cell Distribution Width 15.8 % (11.8-14.3); White Blood Cell 6.2 10^3/uL (4.4-10.8)
[2022-09-22 16:59] LABS: Albumin 3.7 g/dL (3.4-5.0); BUN/Creatinine Ratio 14.8; Calcium 8.7 mg/dL (8.5-10.1); Magnesium 2.2 mg/dL (1.6-2.6); Potassium 4.2 mmol/L (3.5-5.1)
[2022-09-22 17:02] LABS: Bilirubin, Total 0.8 mg/dL (0.2-1.0); Total Protein 6.9 g/dL (6.4-8.2)
== END | disposition home or self-care (01) ==
LOC: CHF HDHVI 12:58
PROVIDERS: ATTEND Internal Medicine Cardiovascular Disease
DX: I27.21 Secondary pulmonary arterial hypertension (principal)
CPT/HCPCS: 36415; 80053; 83735; 85025; 96372; G0463

== ENCOUNTER → 2022-11-16 | Outpatient (CLI) | payer MEDICARE, OTHER ==
[~2022-11-16] MED LIST changes: +CYANOCOBALAMIN (B-12) 1000 MCG/1 ML VIAL ONE
[2022-11-16 10:20] VITALS: BP 145/63
[2022-11-16 10:39] VITALS: BP 155/76
[2022-11-16 12:03] LABS: Basophils # (auto) 0 10 ^3/uL (0-0.2); Basophils % (auto) 0.8 % (0.0-2.0); Eosinophils # (auto) 0.1 10 ^3/uL (0-0.8); Eosinophils % (auto) 2.7 % (0.0-7.0); Hematocrit 36.8 % (36.0-46.0); Lymphocytes # (auto) 0.9 10 ^3/uL (0.4-5.4); Lymphocytes % (auto) 16.5 % (10.0-50.0); Mean Corpuscular Hemoglobin 29.7 pg (28.0-32.0); Mean Corpuscular Hgb Conc. 32.7 g/dL (32.0-36.0); Mean Corpuscular Volume 90.8 fL (80.0-100.0); Monocytes # (auto) 0.3 10 ^3/uL (0-1.3); Monocytes % (auto) 5.8 % (0.0-12.0); Neutrophils # (auto) 3.9 10 ^3/uL (1.6-8.6); Neutrophils % (auto) 74.2 % (37.0-80.0); Nucleated Red Blood Cells % 0.1 %; Red Blood Cells 4.05 10^6/uL (4.0-5.20); Red Cell Distribution Width 15.2 % (11.8-14.3); White Blood Cell 5.2 10^3/uL (4.4-10.8)
[2022-11-16 12:06] LABS: Urine Blood Negative /uL (Negative); Urine Specific Gravity 1.011 (1.001-1.035)
[2022-11-16 12:18] LABS: Albumin 3.9 g/dL (3.4-5.0); Calcium 8.3 mg/dL (8.5-10.1); Magnesium 1.9 mg/dL (1.6-2.6); Potassium 3.9 mmol/L (3.5-5.1)
[2022-11-16 12:24] LABS: BUN/Creatinine Ratio 14.9; Bilirubin, Total 0.9 mg/dL (0.2-1.0); Phosphorus 3.5 mg/dL (2.5-4.90); Total Protein 6.3 g/dL (6.4-8.2); Uric Acid 4.4 mg/dL (2.6-6.0)
[2022-11-16 12:28] LABS: Creatinine, Urine 39 mg/dL (30.0-125.0); Protein, Urine 24.3 mg/dL (0.0-11.9)
== END | disposition home or self-care (01) ==
LOC: CHF HDHVI 09:22
PROVIDERS: ATTEND Internal Medicine Cardiovascular Disease
DX: E55.9 Vitamin D deficiency, unspecified (principal)
CPT/HCPCS: 36415; 80053; 80069; 81003; 82306; 82570; 83735; 83970; 84156; 84550; 85025; 96372; G0463

== ENCOUNTER → 2022-11-21 | Outpatient (CLI) | payer MEDICARE, OTHER ==
[~2022-11-21] MED LIST changes: -CYANOCOBALAMIN (B-12) 1000 MCG/1 ML VIAL IM ONE; -CYANOCOBALAMIN (B-12) 1000 MCG/1 ML VIAL ONE
== END | disposition home or self-care (01) ==
LOC: Rad HDHVI 12:29
PROVIDERS: ATTEND Internal Medicine Cardiovascular Disease
DX: I70.0 Atherosclerosis of aorta (principal); M47.814 Spondylosis without myelopathy or radiculopathy, thoracic region
CPT/HCPCS: 71046

== ENCOUNTER → 2022-12-12 | Outpatient (CLI) | payer MEDICARE, OTHER ==
[~2022-12-12] MED LIST changes: +ALL100T PO; +CYANOCOBALAMIN (B-12) 1000 MCG/1 ML VIAL IM ONE; +CYANOCOBALAMIN (B-12) 1000 MCG/1 ML VIAL ONE; +POM; +POTA-220 PO; +POTA20IN4 IV; +RIOC1TAB14 PO; +[UNRECOGNIZED DRUG - CODE] XX
[2022-12-12 11:07] VITALS: BP 146/95
[2022-12-12 11:30] VITALS: BP 130/60
[2022-12-12 16:40] LABS: Basophils # (auto) 0.1 10 ^3/uL (0-0.2); Basophils % (auto) 0.8 % (0.0-2.0); Eosinophils # (auto) 0.2 10 ^3/uL (0-0.8); Eosinophils % (auto) 2.7 % (0.0-7.0); Hemoglobin 12.8 g/dL (12.2-16.2); Lymphocytes # (auto) 1.1 10 ^3/uL (0.4-5.4); Lymphocytes % (auto) 14.7 % (10.0-50.0); Mean Corpuscular Hemoglobin 29.4 pg (28.0-32.0); Mean Corpuscular Hgb Conc. 32.1 g/dL (32.0-36.0); Mean Corpuscular Volume 91.7 fL (80.0-100.0); Monocytes # (auto) 0.5 10 ^3/uL (0-1.3); Neutrophils # (auto) 5.4 10 ^3/uL (1.6-8.6); Neutrophils % (auto) 74.8 % (37.0-80.0); Red Blood Cells 4.36 10^6/uL (4.0-5.20); Red Cell Distribution Width 15.8 % (11.8-14.3); White Blood Cell 7.3 10^3/uL (4.4-10.8)
[2022-12-12 16:43] LABS: Albumin 3.8 g/dL (3.4-5.0); Calcium 8.6 mg/dL (8.5-10.1); Potassium 3.9 mmol/L (3.5-5.1)
[2022-12-12 16:49] LABS: BUN/Creatinine Ratio 14.3; Bilirubin, Total 0.7 mg/dL (0.2-1.0)
[2022-12-12 16:55] LABS: INR 0.99 (0.9-1.15); Partial Thromboplastin Time 29.1 sec (24.6-33.4)
== END | disposition home or self-care (01) ==
LOC: Rad HDHVI 10:57
PROVIDERS: ATTEND Internal Medicine Cardiovascular Disease
DX: I50.43 Acute on chronic combined systolic (congestive) and diastolic (congestive) heart failure (principal)
CPT/HCPCS: 36415; 80053; 83735; 85025; 85610; 85730; 93005; 96372; G0463

== ENCOUNTER 2023-01-06 11:01 | Day surgery (SDC) | payer MEDICARE, OTHER ==
[~2023-01-06] VITALS: Ht 162.6 cm; Wt 133.8 kg
[~2023-01-06 11:01] MED LIST changes: +ACYC1CAP23 PO; -ALLO300T2 PO; -CYANOCOBALAMIN (B-12) 1000 MCG/1 ML VIAL IM ONE; -CYANOCOBALAMIN (B-12) 1000 MCG/1 ML VIAL ONE; -FURO40TA4 PO; -LISI-275 PO; -ONDA-144 PO; -POM; -POTA10TA51 PO; -POTA20IN4 IV; -RIOC1TAB13 PO; -[UNRECOGNIZED DRUG - CODE] XX
[2023-01-06] MEDS ORDERED: ANGIOMAX 250 MG VIAL IV ONE (13:37)
[2023-01-06] MEDS ORDERED: SODIUM CHL 0.9% 0 ML ONE (13:37)
[2023-01-06] MEDS ORDERED: MIDAZOLAM HCL 2MG/2ML 2ml VIAL (1mg/ml) ONE (13:37)
[2023-01-06] MEDS ORDERED: LIDOCAINE 2%HCL (LOCAL ANESTH.) INJ 10ml MDV ONE (13:37)
[2023-01-06] MEDS ORDERED: fentaNYL CITRATE 100 MCG/2 ML VL ONE (14:13)
== END 2023-01-06 17:14 | disposition home or self-care (01) ==
LOC: CATH 11:01
PROVIDERS: ATTEND Internal Medicine Cardiovascular Disease
DX: I27.20 Pulmonary hypertension, unspecified (principal); I48.91 Unspecified atrial fibrillation; I25.10 Atherosclerotic heart disease of native coronary artery without angina pectoris; G47.30 Sleep apnea, unspecified; E66.01 Morbid (severe) obesity due to excess calories; Z86.718 Personal history of other venous thrombosis and embolism; Z79.01 Long term (current) use of anticoagulants; Z20.822 Contact with and (suspected) exposure to COVID-19
CPT/HCPCS: 93460; C1760; C1769; C1894; J1644; J2001; J2250; J3010; U0003; 93458; 99152

== ENCOUNTER → 2023-01-12 | Outpatient (CLI) | payer MEDICARE ==
[2023-01-12 11:41] LABS: Basophils # (auto) 0.1 10 ^3/uL (0-0.2); Eosinophils # (auto) 0.2 10 ^3/uL (0-0.8); Eosinophils % (auto) 3.5 % (0.0-7.0); Hematocrit 35.2 % (36.0-46.0); Hemoglobin 11.4 g/dL (12.2-16.2); Lymphocytes # (auto) 0.9 10 ^3/uL (0.4-5.4); Lymphocytes % (auto) 17.7 % (10.0-50.0); Mean Corpuscular Hgb Conc. 32.4 g/dL (32.0-36.0); Mean Corpuscular Volume 89.5 fL (80.0-100.0); Monocytes # (auto) 0.4 10 ^3/uL (0-1.3); Monocytes % (auto) 8.1 % (0.0-12.0); Neutrophils # (auto) 3.7 10 ^3/uL (1.6-8.6); Neutrophils % (auto) 69.7 % (37.0-80.0); Nucleated Red Blood Cells % 0.2 %; Red Blood Cells 3.93 10^6/uL (4.0-5.20); Red Cell Distribution Width 16.9 % (11.8-14.3); White Blood Cell 5.3 10^3/uL (4.4-10.8)
[2023-01-12 11:54] LABS: Urine Bacteria NONE SEEN /hpf (None Seen); Urine Blood TRACE /uL (Negative); Urine Specific Gravity 1.015 (1.001-1.035); Urine WBC 4 /hpf (0 - 5)
[2023-01-12 13:20] LABS: Albumin 3.5 g/dL (3.4-5.0); BUN/Creatinine Ratio 17.8; Bilirubin, Total 0.7 mg/dL (0.2-1.0); Calcium 8.4 mg/dL (8.5-10.1); Magnesium 1.9 mg/dL (1.6-2.6); Phosphorus 3.3 mg/dL (2.5-4.90); Potassium 4.1 mmol/L (3.5-5.1); Total Protein 6.2 g/dL (6.4-8.2)
[2023-01-12 13:21] LABS: Protein, Urine 19.1 mg/dL (0.0-11.9)
[2023-01-12 13:23] LABS: Uric Acid 4.9 mg/dL (2.6-6.0)
== END | disposition home or self-care (01) ==
LOC: LAB 11:11
PROVIDERS: ATTEND Internal Medicine Cardiovascular Disease
DX: I10 Essential (primary) hypertension (principal); I27.21 Secondary pulmonary arterial hypertension; E56.9 Vitamin deficiency, unspecified; E21.3 Hyperparathyroidism, unspecified; R80.9 Proteinuria, unspecified
CPT/HCPCS: 36415; 80053; 80069; 81001; 82306; 82570; 83735; 83970; 84156; 84550; 85025

== ENCOUNTER → 2023-02-13 | Outpatient (CLI) | payer MEDICARE, OTHER ==
[2023-02-13 11:38] LABS: Basophils # (auto) 0 10 ^3/uL (0-0.2); Basophils % (auto) 0.9 % (0.0-2.0); Eosinophils # (auto) 0.2 10 ^3/uL (0-0.8); Eosinophils % (auto) 3.3 % (0.0-7.0); Hemoglobin 11.6 g/dL (12.2-16.2); Mean Corpuscular Hemoglobin 28.7 pg (28.0-32.0); Mean Corpuscular Hgb Conc. 32.3 g/dL (32.0-36.0); Mean Corpuscular Volume 88.7 fL (80.0-100.0); Monocytes # (auto) 0.4 10 ^3/uL (0-1.3); Monocytes % (auto) 7.5 % (0.0-12.0); Neutrophils # (auto) 3.7 10 ^3/uL (1.6-8.6); Neutrophils % (auto) 69.3 % (37.0-80.0); Nucleated Red Blood Cells % 0.1 %; Red Blood Cells 4.05 10^6/uL (4.0-5.20); Red Cell Distribution Width 16.7 % (11.8-14.3); White Blood Cell 5.3 10^3/uL (4.4-10.8)
[2023-02-13 12:01] LABS: Albumin 3.3 g/dL (3.4-5.0); Calcium 8.5 mg/dL (8.5-10.1); Magnesium 2.3 mg/dL (1.6-2.6); Potassium 4.1 mmol/L (3.5-5.1)
[2023-02-13 12:07] LABS: Bilirubin, Total 0.7 mg/dL (0.2-1.0); Total Protein 6.3 g/dL (6.4-8.2)
== END | disposition home or self-care (01) ==
LOC: LAB 11:20
PROVIDERS: ATTEND Internal Medicine Cardiovascular Disease
DX: I10 Essential (primary) hypertension (principal); I27.21 Secondary pulmonary arterial hypertension
CPT/HCPCS: 36415; 80053; 83735; 85025

== ENCOUNTER → 2023-02-16 | Outpatient (CLI) | payer MEDICARE, OTHER ==
[~2023-02-16] MED LIST changes: +CYANOCOBALAMIN (B-12) 1000 MCG/1 ML VIAL IM ONE; +CYANOCOBALAMIN (B-12) 1000 MCG/1 ML VIAL ONE
[2023-02-16 13:20] VITALS: BP 136/70
[2023-02-16 13:40] VITALS: BP 134/68
== END | disposition home or self-care (01) ==
LOC: CHF HDHVI 13:29
PROVIDERS: ATTEND Internal Medicine Cardiovascular Disease
DX: I27.21 Secondary pulmonary arterial hypertension (principal); I10 Essential (primary) hypertension; I25.10 Atherosclerotic heart disease of native coronary artery without angina pectoris; I48.91 Unspecified atrial fibrillation; E66.01 Morbid (severe) obesity due to excess calories; Z79.01 Long term (current) use of anticoagulants
CPT/HCPCS: 96372; G0463; J3420

== ENCOUNTER → 2023-03-20 | Outpatient (CLI) | payer MEDICARE, OTHER ==
[~2023-03-20] MED LIST changes: -CYANOCOBALAMIN (B-12) 1000 MCG/1 ML VIAL IM ONE; -CYANOCOBALAMIN (B-12) 1000 MCG/1 ML VIAL ONE
[2023-03-20 11:51] LABS: Basophils # (auto) 0 10 ^3/uL (0-0.2); Basophils % (auto) 0.8 % (0.0-2.0); Eosinophils # (auto) 0.1 10 ^3/uL (0-0.8); Eosinophils % (auto) 2.7 % (0.0-7.0); Hematocrit 34.9 % (36.0-46.0); Hemoglobin 11.2 g/dL (12.2-16.2); Lymphocytes % (auto) 19.3 % (10.0-50.0); Mean Corpuscular Hemoglobin 28.4 pg (28.0-32.0); Mean Corpuscular Volume 88.6 fL (80.0-100.0); Monocytes # (auto) 0.5 10 ^3/uL (0-1.3); Monocytes % (auto) 8.7 % (0.0-12.0); Neutrophils # (auto) 3.6 10 ^3/uL (1.6-8.6); Neutrophils % (auto) 68.5 % (37.0-80.0); Red Blood Cells 3.94 10^6/uL (4.0-5.20); White Blood Cell 5.2 10^3/uL (4.4-10.8)
[2023-03-20 12:54] LABS: Albumin 3.3 g/dL (3.4-5.0); Calcium 7.9 mg/dL (8.5-10.1); Magnesium 2.2 mg/dL (1.6-2.6)
[2023-03-20 12:59] LABS: Bilirubin, Total 0.6 mg/dL (0.2-1.0); Total Protein 6.1 g/dL (6.4-8.2)
== END | disposition home or self-care (01) ==
LOC: LAB 11:34
PROVIDERS: ATTEND Internal Medicine Cardiovascular Disease
DX: I27.21 Secondary pulmonary arterial hypertension (principal); I10 Essential (primary) hypertension
CPT/HCPCS: 36415; 80053; 83735; 85025

== ENCOUNTER → 2023-03-30 | Outpatient (CLI) | payer MEDICARE, OTHER ==
[~2023-03-30] VITALS: Ht 30.5 cm; Wt 590.1 kg
[~2023-03-30] MED LIST changes: -ACYC1CAP23 PO; +ACYC200C22 PO; +CYANOCOBALAMIN (B-12) 1000 MCG/1 ML VIAL IM ONE; +CYANOCOBALAMIN (B-12) 1000 MCG/1 ML VIAL ONE
[2023-03-30 13:10] VITALS: BP 109/55
[2023-03-30 13:28] VITALS: BP 125/50
== END | disposition home or self-care (01) ==
LOC: CHF HDHVI 13:04
PROVIDERS: ATTEND Internal Medicine Cardiovascular Disease
DX: I27.21 Secondary pulmonary arterial hypertension (principal); D64.9 Anemia, unspecified; I10 Essential (primary) hypertension; I25.10 Atherosclerotic heart disease of native coronary artery without angina pectoris; I48.91 Unspecified atrial fibrillation; Z79.01 Long term (current) use of anticoagulants
CPT/HCPCS: 96372; G0463; J3420

== ENCOUNTER → 2023-05-03 | Outpatient (CLI) | payer MEDICARE, OTHER ==
[~2023-05-03] MED LIST changes: -CYANOCOBALAMIN (B-12) 1000 MCG/1 ML VIAL IM ONE; -CYANOCOBALAMIN (B-12) 1000 MCG/1 ML VIAL ONE
[2023-05-03 13:46] LABS: Basophils # (auto) 0 10 ^3/uL (0-0.2); Basophils % (auto) 0.2 % (0.0-2.0); Eosinophils # (auto) 0.2 10 ^3/uL (0-0.8); Hematocrit 35.3 % (36.0-46.0); Hemoglobin 11.2 g/dL (12.2-16.2); Lymphocytes # (auto) 0.9 10 ^3/uL (0.4-5.4); Lymphocytes % (auto) 12.1 % (10.0-50.0); Mean Corpuscular Hemoglobin 27.7 pg (28.0-32.0); Mean Corpuscular Hgb Conc. 31.7 g/dL (32.0-36.0); Mean Corpuscular Volume 87.5 fL (80.0-100.0); Monocytes # (auto) 0.4 10 ^3/uL (0-1.3); Monocytes % (auto) 6.2 % (0.0-12.0); Neutrophils # (auto) 5.6 10 ^3/uL (1.6-8.6); Neutrophils % (auto) 78.5 % (37.0-80.0); Nucleated Red Blood Cells % 0.1 %; Red Blood Cells 4.03 10^6/uL (4.0-5.20); Red Cell Distribution Width 15.8 % (11.8-14.3); White Blood Cell 7.1 10^3/uL (4.4-10.8)
[2023-05-03 14:03] LABS: Albumin 3.4 g/dL (3.4-5.0); Calcium 7.9 mg/dL (8.5-10.1); Potassium 3.8 mmol/L (3.5-5.1)
[2023-05-03 14:06] LABS: BUN/Creatinine Ratio 13.8 (10.0-20.0); Total Protein 6.1 g/dL (6.4-8.2)
== END | disposition home or self-care (01) ==
LOC: LAB 13:16
PROVIDERS: ATTEND Internal Medicine Cardiovascular Disease
DX: I10 Essential (primary) hypertension (principal); I27.21 Secondary pulmonary arterial hypertension; D64.9 Anemia, unspecified
CPT/HCPCS: 36415; 80053; 83735; 85025

== ENCOUNTER → 2023-06-05 | Outpatient (CLI) | payer MEDICARE, OTHER ==
[2023-06-05 13:24] LABS: Basophils # (auto) 0 10 ^3/uL (0-0.2); Basophils % (auto) 0.8 % (0.0-2.0); Eosinophils # (auto) 0.1 10 ^3/uL (0-0.8); Eosinophils % (auto) 1.8 % (0.0-7.0); Hemoglobin 11.6 g/dL (12.2-16.2); Lymphocytes # (auto) 0.8 10 ^3/uL (0.4-5.4); Lymphocytes % (auto) 13.1 % (10.0-50.0); Mean Corpuscular Hgb Conc. 32.1 g/dL (32.0-36.0); Mean Corpuscular Volume 87.3 fL (80.0-100.0); Monocytes # (auto) 0.4 10 ^3/uL (0-1.3); Monocytes % (auto) 7.1 % (0.0-12.0); Neutrophils # (auto) 4.6 10 ^3/uL (1.6-8.6); Neutrophils % (auto) 77.2 % (37.0-80.0); Nucleated Red Blood Cells % 0.1 %; Red Blood Cells 4.13 10^6/uL (4.0-5.20); Red Cell Distribution Width 16.4 % (11.8-14.3); White Blood Cell 5.9 10^3/uL (4.4-10.8)
[2023-06-05 14:14] LABS: Albumin 3.6 g/dL (3.4-5.0); Calcium 8.4 mg/dL (8.5-10.1); Magnesium 2.3 mg/dL (1.6-2.6); Potassium 3.9 mmol/L (3.5-5.1)
[2023-06-05 14:20] LABS: BUN/Creatinine Ratio 12.1 (10.0-20.0); Bilirubin, Total 0.9 mg/dL (0.2-1.0); Total Protein 6.3 g/dL (6.4-8.2)
== END | disposition home or self-care (01) ==
LOC: LAB 13:04
PROVIDERS: ATTEND Internal Medicine Cardiovascular Disease
DX: I10 Essential (primary) hypertension (principal); D64.9 Anemia, unspecified; I27.21 Secondary pulmonary arterial hypertension
CPT/HCPCS: 36415; 80053; 83735; 85025

== ENCOUNTER → 2023-06-07 | Outpatient (CLI) | payer MEDICARE, OTHER ==
[~2023-06-07] MED LIST changes: +CYANOCOBALAMIN (B-12) 1000 MCG/1 ML VIAL IM ONE; +CYANOCOBALAMIN (B-12) 1000 MCG/1 ML VIAL ONE
[2023-06-07 13:07] VITALS: BP 144/63; PULSE 74; RESP 18; O2SAT 94
[2023-06-07 13:40] VITALS: BP 159/79; PULSE 85; RESP 18; O2SAT 94
== END | disposition home or self-care (01) ==
LOC: CHF HDHVI 13:16
PROVIDERS: ATTEND Internal Medicine Cardiovascular Disease
DX: I27.21 Secondary pulmonary arterial hypertension (principal); D64.9 Anemia, unspecified; I10 Essential (primary) hypertension; I25.10 Atherosclerotic heart disease of native coronary artery without angina pectoris; I48.0 Paroxysmal atrial fibrillation; Z79.01 Long term (current) use of anticoagulants
CPT/HCPCS: 96372; G0463; J3420

== ENCOUNTER → 2023-08-03 | Outpatient (CLI) | payer MEDICARE, OTHER ==
[2023-08-03 13:20] VITALS: BP 146/63; PULSE 72; RESP 20; O2SAT 94
[2023-08-03 13:57] VITALS: BP 156/70; PULSE 56; RESP 20; O2SAT 94
== END | disposition home or self-care (01) ==
LOC: CHF HDHVI 13:27
PROVIDERS: ATTEND Internal Medicine Cardiovascular Disease
DX: I27.21 Secondary pulmonary arterial hypertension (principal); D64.9 Anemia, unspecified; I12.9 Hypertensive chronic kidney disease with stage 1 through stage 4 chronic kidney disease, or unspecified chronic kidney disease; N18.30 Chronic kidney disease, stage 3 unspecified
CPT/HCPCS: 96372; G0463; J3420

== ENCOUNTER → 2023-09-06 | Outpatient (CLI) | payer MEDICARE, OTHER ==
[2023-09-06 13:09] VITALS: BP 130/70; PULSE 89; RESP 18; O2SAT 93
[2023-09-06 13:36] VITALS: BP 126/83; PULSE 86; RESP 18; O2SAT 93
== END | disposition home or self-care (01) ==
LOC: CHF HDHVI 13:31
PROVIDERS: ATTEND Internal Medicine Cardiovascular Disease
DX: I27.21 Secondary pulmonary arterial hypertension (principal); D64.9 Anemia, unspecified; I12.9 Hypertensive chronic kidney disease with stage 1 through stage 4 chronic kidney disease, or unspecified chronic kidney disease; N18.30 Chronic kidney disease, stage 3 unspecified; R06.02 Shortness of breath
CPT/HCPCS: 96372; G0463; J3420

== ENCOUNTER → 2023-10-12 | Outpatient (CLI) | payer MEDICARE, OTHER ==
[~2023-10-12] MED LIST changes: -CYANOCOBALAMIN (B-12) 1000 MCG/1 ML VIAL IM ONE; -CYANOCOBALAMIN (B-12) 1000 MCG/1 ML VIAL ONE
[2023-10-12 13:29] LABS: Basophils # (auto) 0.1 10 ^3/uL (0-0.2); Eosinophils # (auto) 0.1 10 ^3/uL (0-0.8); Eosinophils % (auto) 2.5 % (0.0-7.0); Hematocrit 36.2 % (36.0-46.0); Hemoglobin 11.5 g/dL (12.2-16.2); Lymphocytes # (auto) 0.8 10 ^3/uL (0.4-5.4); Lymphocytes % (auto) 15.3 % (10.0-50.0); Mean Corpuscular Hemoglobin 27.9 pg (28.0-32.0); Mean Corpuscular Hgb Conc. 31.8 g/dL (32.0-36.0); Mean Corpuscular Volume 87.6 fL (80.0-100.0); Monocytes # (auto) 0.3 10 ^3/uL (0-1.3); Monocytes % (auto) 5.8 % (0.0-12.0); Neutrophils # (auto) 4.1 10 ^3/uL (1.6-8.6); Neutrophils % (auto) 75.4 % (37.0-80.0); Red Blood Cells 4.14 10^6/uL (4.0-5.20); Red Cell Distribution Width 16.3 % (11.8-14.3); White Blood Cell 5.4 10^3/uL (4.4-10.8)
[2023-10-12 14:29] LABS: Alanine Aminotransferase 11 U/L (7-40); Albumin 4.3 g/dL (3.2-4.8); Alkaline Phosphatase 112 U/L (46-116); Anion Gap 7 (5-15); Aspartate Aminotransferase 16 U/L (13-40); BUN/Creatinine Ratio 11.7 (10.0-20.0); Blood Urea Nitrogen 13 mg/dL (9-23); Calcium 8.7 mg/dL (8.7-10.4); Carbon Dioxide 29 mmol/L (20-30); Chloride 106 mmol/L (98-107); Glucose 85 mg/dL (74-106); Magnesium 1.8 mg/dL (1.6-2.6); Potassium 3.8 mmol/L (3.5-5.1); Sodium 142 mmol/L (136-145)
[2023-10-12 14:30] LABS: Total Protein 6.4 g/dL (5.7-8.2)
== END | disposition home or self-care (01) ==
LOC: LAB 13:03
PROVIDERS: ATTEND Internal Medicine Cardiovascular Disease
DX: E11.9 Type 2 diabetes mellitus without complications (principal); I10 Essential (primary) hypertension; D51.9 Vitamin B12 deficiency anemia, unspecified; I27.21 Secondary pulmonary arterial hypertension; D64.9 Anemia, unspecified
CPT/HCPCS: 36415; 80053; 82607; 83540; 83735; 85025

== ENCOUNTER → 2023-10-25 | Outpatient (CLI) | payer MEDICARE, OTHER ==
[~2023-10-25] MED LIST changes: +CYANOCOBALAMIN (B-12) 1000 MCG/1 ML VIAL IM ONE; +CYANOCOBALAMIN (B-12) 1000 MCG/1 ML VIAL ONE
[2023-10-25 13:03] VITALS: BP 130/60; PULSE 72; RESP 18; O2SAT 92
[2023-10-25 13:25] VITALS: BP 126/60; PULSE 81; RESP 18; O2SAT 92
== END | disposition home or self-care (01) ==
LOC: CHF HDHVI 12:59
PROVIDERS: ATTEND Internal Medicine Cardiovascular Disease
DX: I10 Essential (primary) hypertension (principal); I27.21 Secondary pulmonary arterial hypertension; R06.02 Shortness of breath; D64.9 Anemia, unspecified
CPT/HCPCS: 96372; G0463; J3420

== ENCOUNTER → 2023-12-08 | Outpatient (CLI) | payer MEDICARE, OTHER ==
[~2023-12-08] MED LIST changes: -CYANOCOBALAMIN (B-12) 1000 MCG/1 ML VIAL IM ONE; -CYANOCOBALAMIN (B-12) 1000 MCG/1 ML VIAL ONE
[2023-12-08 13:27] LABS: Basophils # (auto) 0 10 ^3/uL (0-0.2); Basophils % (auto) 0.8 % (0.0-2.0); Eosinophils # (auto) 0.1 10 ^3/uL (0-0.8); Eosinophils % (auto) 2.3 % (0.0-7.0); Hematocrit 34.2 % (36.0-46.0); Hemoglobin 10.8 g/dL (12.2-16.2); Lymphocytes # (auto) 0.9 10 ^3/uL (0.4-5.4); Lymphocytes % (auto) 16.2 % (10.0-50.0); Mean Corpuscular Hemoglobin 27.6 pg (28.0-32.0); Mean Corpuscular Hgb Conc. 31.7 g/dL (32.0-36.0); Monocytes # (auto) 0.4 10 ^3/uL (0-1.3); Monocytes % (auto) 7.8 % (0.0-12.0); Neutrophils % (auto) 72.9 % (37.0-80.0); Red Blood Cells 3.93 10^6/uL (4.0-5.20); White Blood Cell 5.5 10^3/uL (4.4-10.8)
[2023-12-08 13:42] LABS: INR 1.12 (0.9-1.15); Partial Thromboplastin Time 31.6 SEC (24.5-34.5); Prothrombin Time 11.7 sec (9.3-11.8)
[2023-12-08 13:58] LABS: Alanine Aminotransferase 13 U/L (7-40); Albumin 4.2 g/dL (3.2-4.8); Alkaline Phosphatase 115 U/L (46-116); Anion Gap 6 (5-15); Aspartate Aminotransferase 20 U/L (13-40); BUN/Creatinine Ratio 13.9 (10.0-20.0); Bilirubin, Total 0.8 mg/dL (0.2-1.0); Blood Urea Nitrogen 15 mg/dL (9-23); Calcium 8.8 mg/dL (8.5-10.1); Carbon Dioxide 29 mmol/L (20-30); Chloride 108 mmol/L (98-107); Glucose 96 mg/dL (74-106); Potassium 3.8 mmol/L (3.5-5.1); Sodium 143 mmol/L (136-145); Total Protein 6.4 g/dL (5.7-8.2)
== END | disposition home or self-care (01) ==
LOC: LAB 13:12
PROVIDERS: ATTEND Internal Medicine Cardiovascular Disease
DX: I27.0 Primary pulmonary hypertension (principal); D64.9 Anemia, unspecified; Z79.01 Long term (current) use of anticoagulants
CPT/HCPCS: 36415; 80053; 85025; 85610; 85730

== ENCOUNTER → 2023-12-27 | Outpatient (CLI) | payer MEDICARE, OTHER ==
[2023-12-27 12:35] VITALS: BP 162/75; PULSE 79; RESP 18; O2SAT 95
[2023-12-27] MEDS: CYANOCOBALAMIN (B-12) 1000 MCG/1 ML VIAL ONE (12:40)
[2023-12-27] MEDS: CYANOCOBALAMIN (B-12) 1000 MCG/1 ML VIAL IM ONE (12:44)
[2023-12-27 13:06] VITALS: BP 137/80; PULSE 69; RESP 18; O2SAT 95
== END | disposition home or self-care (01) ==
LOC: CHF HDHVI 12:28
PROVIDERS: ATTEND Internal Medicine Cardiovascular Disease
DX: I27.21 Secondary pulmonary arterial hypertension (principal); D64.9 Anemia, unspecified; Z79.01 Long term (current) use of anticoagulants
CPT/HCPCS: 96372; G0463; J3420

== ENCOUNTER → 2024-04-17 | Outpatient (CLI) | payer MEDICARE, OTHER ==
[2024-04-17 12:58] VITALS: BP 157/70; PULSE 80; RESP 18; O2SAT 92
[2024-04-17] MEDS: CYANOCOBALAMIN (B-12) 1000 MCG/1 ML VIAL IM ONE (13:12)
[2024-04-17 13:25] VITALS: BP 141/59; PULSE 78; RESP 16; O2SAT 92
[2024-04-17] MEDS: CYANOCOBALAMIN (B-12) 1000 MCG/1 ML VIAL ONE (13:45)
== END | disposition home or self-care (01) ==
LOC: CHF HDHVI 13:47
PROVIDERS: ATTEND Internal Medicine Cardiovascular Disease
DX: I27.21 Secondary pulmonary arterial hypertension (principal); D64.9 Anemia, unspecified; I10 Essential (primary) hypertension; R06.02 Shortness of breath
CPT/HCPCS: 96372; G0463; J3420

== ENCOUNTER → 2024-06-12 | Outpatient (CLI) | payer MEDICARE, OTHER ==
[2024-06-12 12:22] LABS: Basophils # (auto) 0 10 ^3/uL (0-0.2); Basophils % (auto) 0.7 % (0.0-2.0); Eosinophils # (auto) 0.1 10 ^3/uL (0-0.8); Eosinophils % (auto) 2.5 % (0.0-7.0); Hematocrit 30.8 % (36.0-46.0); Hemoglobin 10.1 g/dL (12.2-16.2); Lymphocytes # (auto) 0.7 10 ^3/uL (0.4-5.4); Mean Corpuscular Hemoglobin 28.1 pg (28.0-32.0); Mean Corpuscular Hgb Conc. 32.9 g/dL (32.0-36.0); Mean Corpuscular Volume 85.6 fL (80.0-100.0); Monocytes # (auto) 0.3 10 ^3/uL (0-1.3); Monocytes % (auto) 6.4 % (0.0-12.0); Neutrophils # (auto) 3.9 10 ^3/uL (1.6-8.6); Neutrophils % (auto) 76.4 % (37.0-80.0); Red Blood Cells 3.59 10^6/uL (4.0-5.20); Red Cell Distribution Width 17.8 % (11.8-14.3); White Blood Cell 5.2 10^3/uL (4.4-10.8)
[2024-06-12 13:02] LABS: Alanine Aminotransferase 11 U/L (7-40); Alkaline Phosphatase 88 U/L (46-116); Anion Gap 7 (5-15); BUN/Creatinine Ratio 12.4 (10.0-20.0); Blood Urea Nitrogen 13 mg/dL (9-23); Calcium 8.9 mg/dL (8.7-10.4); Carbon Dioxide 28 mmol/L (20-30); Chloride 108 mmol/L (98-107); Glucose 93 mg/dL (74-106); Magnesium 1.7 mg/dL (1.6-2.6); Potassium 4.1 mmol/L (3.5-5.1); Sodium 143 mmol/L (136-145)
[2024-06-12 13:04] LABS: Albumin 3.9 g/dL (3.2-4.8); Aspartate Aminotransferase 12 U/L (13-40); Bilirubin, Total 0.9 mg/dL (0.2-1.0); Total Protein 5.7 g/dL (5.7-8.2)
== END | disposition home or self-care (01) ==
LOC: LAB 11:52
PROVIDERS: ATTEND Internal Medicine Cardiovascular Disease
DX: I10 Essential (primary) hypertension (principal); D64.9 Anemia, unspecified
CPT/HCPCS: 36415; 80053; 83735; 85025

== ENCOUNTER → 2024-06-20 | Outpatient (CLI) | payer MEDICARE, OTHER ==
[2024-06-20] MEDS: CYANOCOBALAMIN (B-12) 1000 MCG/1 ML VIAL ONE (12:53)
[2024-06-20 13:00] VITALS: BP 143/64; PULSE 79; RESP 16; O2SAT 93
[2024-06-20] MEDS: CYANOCOBALAMIN (B-12) 1000 MCG/1 ML VIAL IM ONE (13:15)
[2024-06-20 13:32] VITALS: BP 130/62; PULSE 71; RESP 16; O2SAT 93
== END | disposition home or self-care (01) ==
LOC: CHF HDHVI 13:02
PROVIDERS: ATTEND Internal Medicine Cardiovascular Disease
DX: I27.0 Primary pulmonary hypertension (principal); D64.9 Anemia, unspecified
CPT/HCPCS: 96372; G0463; J3420

== ENCOUNTER → 2024-08-07 | Outpatient (CLI) | payer MEDICARE, OTHER ==
[2024-08-07 14:02] LABS: Alanine Aminotransferase 10 U/L (7-40); Alkaline Phosphatase 96 U/L (46-116); Anion Gap 8 (5-15); Aspartate Aminotransferase 13 U/L (13-40); BUN/Creatinine Ratio 13.9 (10.0-20.0); Bilirubin, Total 0.8 mg/dL (0.2-1.0); Blood Urea Nitrogen 14 mg/dL (9-23); Calcium 8.9 mg/dL (8.7-10.4); Carbon Dioxide 28 mmol/L (20-31); Chloride 107 mmol/L (98-107); GFR African American 69 mL/min; GFR Non-African American 57 mL/min; Glucose 93 mg/dL (74-106); Phosphorus 3.3 mg/dL (2.4-5.1); Potassium 3.6 mmol/L (3.5-5.1); Sodium 143 mmol/L (136-145)
[2024-08-07 14:08] LABS: Basophils # (auto) 0 10 ^3/uL (0-0.2); Basophils % (auto) 0.7 % (0.0-2.0); Eosinophils # (auto) 0.1 10 ^3/uL (0-0.8); Eosinophils % (auto) 2.4 % (0.0-7.0); Hematocrit 32.8 % (36.0-46.0); Hemoglobin 10.8 g/dL (12.2-16.2); Lymphocytes # (auto) 0.7 10 ^3/uL (0.4-5.4); Lymphocytes % (auto) 15.8 % (10.0-50.0); Mean Corpuscular Hemoglobin 28.1 pg (28.0-32.0); Mean Corpuscular Hgb Conc. 32.8 g/dL (32.0-36.0); Mean Corpuscular Volume 85.9 fL (80.0-100.0); Monocytes # (auto) 0.3 10 ^3/uL (0-1.3); Monocytes % (auto) 6.5 % (0.0-12.0); Neutrophils # (auto) 3.3 10 ^3/uL (1.6-8.6); Neutrophils % (auto) 74.6 % (37.0-80.0); Platelet Count (auto) 189 10^3/uL (140-450); Red Blood Cells 3.82 10^6/uL (4.0-5.20); Red Cell Distribution Width 17.2 % (11.8-14.3); White Blood Cell 4.4 10^3/uL (4.4-10.8)
[2024-08-07 14:48] LABS: Uric Acid 5.3 mg/dL (3.1-7.8)
[2024-08-07 15:18] LABS: Urine Bacteria FEW /hpf (None Seen); Urine Blood 1+ /uL (Negative); Urine Clarity Clear (Clear); Urine Color Light-Yellow (Yellow); Urine Mucus FEW (None Seen); Urine Protein, UAD TRACE (Negative); Urine Specific Gravity 1.017 (1.001-1.035); Urine Urobilinogen Normal (Negative); Urine WBC 3 /hpf (0 - 5); Urine pH 5.5 (5.0-9.0)
[2024-08-07 16:04] LABS: Creatinine, Urine 102.61 mg/dL (30.0-125.0); Urine Protein/Creatinine Ratio 0.24
== END | disposition home or self-care (01) ==
LOC: LAB 12:32
PROVIDERS: ATTEND Internal Medicine Nephrology
DX: E21.3 Hyperparathyroidism, unspecified (principal); R80.9 Proteinuria, unspecified; I27.0 Primary pulmonary hypertension; E56.9 Vitamin deficiency, unspecified; Z79.899 Other long term (current) drug therapy
CPT/HCPCS: 36415; 80053; 80069; 81001; 82306; 82570; 83735; 83970; 84156; 84550; 85025

== ENCOUNTER → 2024-08-21 | Outpatient (CLI) | payer MEDICARE, OTHER ==
[2024-08-21 13:10] VITALS: BP 157/60; PULSE 88; RESP 16; O2SAT 93
[2024-08-21] MEDS: CYANOCOBALAMIN (B-12) 1000 MCG/1 ML VIAL IM ONE (13:10)
[2024-08-21] MEDS: CYANOCOBALAMIN (B-12) 1000 MCG/1 ML VIAL ONE (13:27)
[2024-08-21 13:35] VITALS: BP 146/58; PULSE 89; RESP 18; O2SAT 96
== END | disposition home or self-care (01) ==
LOC: CHF HDHVI 13:04
PROVIDERS: ATTEND Internal Medicine Cardiovascular Disease
DX: I27.0 Primary pulmonary hypertension (principal); Z79.899 Other long term (current) drug therapy
CPT/HCPCS: 96372; G0463; J3420

== ENCOUNTER → 2024-10-21 | Outpatient (CLI) | payer MEDICARE, OTHER ==
[2024-10-21 12:48] LABS: Basophils # (auto) 0 10 ^3/uL (0-0.2); Basophils % (auto) 0.7 % (0.0-2.0); Eosinophils # (auto) 0.1 10 ^3/uL (0-0.8); Eosinophils % (auto) 2.2 % (0.0-7.0); Lymphocytes # (auto) 0.7 10 ^3/uL (0.4-5.4); Monocytes # (auto) 0.4 10 ^3/uL (0-1.3); Neutrophils # (auto) 3.5 10 ^3/uL (1.6-8.6); Nucleated Red Blood Cells % 0.1 %; White Blood Cell 4.7 10^3/uL (4.4-10.8)
[2024-10-21 12:50] LABS: Hematocrit 32.2 % (36.0-46.0); Hemoglobin 10.3 g/dL (12.2-16.2); Lymphocytes % (auto) 15.2 % (10.0-50.0); Mean Corpuscular Hemoglobin 26.9 pg (28.0-32.0); Mean Corpuscular Hgb Conc. 32.1 g/dL (32.0-36.0); Mean Corpuscular Volume 83.8 fL (80.0-100.0); Monocytes % (auto) 7.8 % (0.0-12.0); Neutrophils % (auto) 74.1 % (37.0-80.0); Platelet Count (auto) 174 10^3/uL (140-450); Red Blood Cells 3.84 10^6/uL (4.0-5.20); Red Cell Distribution Width 17.6 % (11.8-14.3)
[2024-10-21 13:05] LABS: Urine Bacteria FEW /hpf (None Seen); Urine Blood 1+ /uL (Negative); Urine Clarity Clear (Clear); Urine Color Yellow (Yellow); Urine Hyaline Cast FEW /lpf (0 - 2); Urine Mucus FEW (None Seen); Urine Protein, UAD 1+ (Negative); Urine Specific Gravity 1.018 (1.001-1.035); Urine Urobilinogen Normal (Negative); Urine WBC 14 /hpf (0 - 5)
[2024-10-21 13:07] LABS: Albumin 3.9 g/dL (3.2-4.8); Alkaline Phosphatase 98 U/L (46-116); Anion Gap 8 (5-15); Aspartate Aminotransferase 15 U/L (13-40); BUN/Creatinine Ratio 14.9 (10.0-20.0); Blood Urea Nitrogen 15 mg/dL (9-23); Calcium 8.9 mg/dL (8.7-10.4); Chloride 103 mmol/L (98-107); GFR African American 69 mL/min; GFR Non-African American 57 mL/min; Glucose 99 mg/dL (74-106); Magnesium 1.8 mg/dL (1.6-2.6)
[2024-10-21 13:08] LABS: Phosphorus 2.8 mg/dL (2.4-5.1); Total Protein 5.9 g/dL (5.7-8.2)
[2024-10-21 13:21] LABS: Creatinine, Urine 139.78 mg/dL (30.0-125.0)
[2024-10-21 14:19] LABS: Alanine Aminotransferase < 9 U/L (7-40); Bilirubin, Total 1.3 mg/dL (0.2-1.0); Carbon Dioxide 35 mmol/L (20-31); Sodium 146 mmol/L (136-145)
[2024-10-21 14:22] LABS: Potassium 2.5 mmol/L (3.5-5.1)
[2024-10-21 14:36] LABS: Uric Acid 5.5 mg/dL (3.1-7.8)
== END | disposition home or self-care (01) ==
LOC: LAB 12:07
PROVIDERS: ATTEND Internal Medicine Cardiovascular Disease
DX: I12.9 Hypertensive chronic kidney disease with stage 1 through stage 4 chronic kidney disease, or unspecified chronic kidney disease (principal); E11.22 Type 2 diabetes mellitus with diabetic chronic kidney disease; N18.30 Chronic kidney disease, stage 3 unspecified; N39.0 Urinary tract infection, site not specified; D63.1 Anemia in chronic kidney disease; E11.21 Type 2 diabetes mellitus with diabetic nephropathy; E55.9 Vitamin D deficiency, unspecified; M10.9 Gout, unspecified; R80.9 Proteinuria, unspecified; E21.3 Hyperparathyroidism, unspecified
CPT/HCPCS: 36415; 80053; 80069; 81001; 82043; 82570; 83735; 83970; 84550; 85025

== ENCOUNTER → 2024-12-26 | Outpatient (CLI) | payer MEDICARE ==
[2024-12-26 12:44] LABS: Basophils # (auto) 0 10 ^3/uL (0-0.2); Eosinophils # (auto) 0.1 10 ^3/uL (0-0.8); Hemoglobin 9.9 g/dL (12.2-16.2); Lymphocytes # (auto) 0.8 10 ^3/uL (0.4-5.4); Monocytes # (auto) 0.3 10 ^3/uL (0-1.3); Monocytes % (auto) 6.3 % (0.0-12.0)
[2024-12-26 12:46] LABS: Basophils % (auto) 0.9 % (0.0-2.0); Hematocrit 31.6 % (36.0-46.0); Lymphocytes % (auto) 17.8 % (10.0-50.0); Mean Corpuscular Hgb Conc. 31.5 g/dL (32.0-36.0); Mean Corpuscular Volume 82.5 fL (80.0-100.0); Neutrophils # (auto) 3.4 10 ^3/uL (1.6-8.6); Platelet Count (auto) 208 10^3/uL (140-450); Red Blood Cells 3.82 10^6/uL (4.0-5.20); Red Cell Distribution Width 17.9 % (11.8-14.3); White Blood Cell 4.6 10^3/uL (4.4-10.8)
[2024-12-26 13:23] LABS: Alanine Aminotransferase 13 U/L (7-40); Albumin 4.2 g/dL (3.2-4.8); Alkaline Phosphatase 109 U/L (46-116); Anion Gap 7 (5-15); Aspartate Aminotransferase 21 U/L (13-40); BUN/Creatinine Ratio 18.1 (10.0-20.0); Blood Urea Nitrogen 21 mg/dL (9-23); Calcium 9.3 mg/dL (8.7-10.4); Carbon Dioxide 28 mmol/L (20-31); Chloride 107 mmol/L (98-107); Glucose 96 mg/dL (74-106); Magnesium 1.9 mg/dL (1.6-2.6); Sodium 142 mmol/L (136-145)
[2024-12-26 13:24] LABS: Bilirubin, Total 0.8 mg/dL (0.2-1.0)
== END | disposition home or self-care (01) ==
LOC: LAB 12:29
PROVIDERS: ATTEND Internal Medicine Cardiovascular Disease
DX: I11.0 Hypertensive heart disease with heart failure (principal); I50.9 Heart failure, unspecified; I27.21 Secondary pulmonary arterial hypertension; D64.9 Anemia, unspecified
CPT/HCPCS: 36415; 80053; 83735; 85025

== ENCOUNTER → 2025-03-05 | Outpatient (CLI) | payer MEDICARE, OTHER ==
[2025-03-05] MEDS: CYANOCOBALAMIN (B-12) 1000 MCG/1 ML VIAL ONE (13:36)
[2025-03-05 13:37] VITALS: BP 139/76; PULSE 80; RESP 16; O2SAT 93
[2025-03-05] MEDS: CYANOCOBALAMIN (B-12) 1000 MCG/1 ML VIAL IM ONE (13:55)
[2025-03-05 14:06] VITALS: BP 136/75; PULSE 85; RESP 16; O2SAT 93
--- NOTE | 2025-03-07 14:03 | DVHSR ---
APPROVED REPORT EXAM: Two-dimensional and M-mode echocardiogram with Doppler and color Doppler. RISK FACTORS Obesity: DIMENSIONS LVDd4.6 (3.8-5.7cm)LA (2D)5.0 (1.9-4.0cm)Aortic Root2.9 (2.0-3.7cm) LVDs3.4 (2.5-4.0cm)LA (MM) (1.9-4.0cm)Aortic Cusp Exc1.3 (1.5-2.0cm) EF (%) 52.0 (55-70%)Rt. Atrium5.6 (1.9-4.0cm)Asc. Aorta cm IVSd1.2 (0.7-1.1cm)RV (D) (1.8-2.4cm) PWd1.3 (0.7-1.1cm) Mitral Valve MitralMitral Stenosis E wave1.47m/sMV Mean GR.mmHg E/A ratio0.02D MVAcm2 Aortic Valve Aortic ValveAortic Stenosis V10.97m/Ajay Mean GR.5mmHg V21.65m/Ajay Peak GR.11mmHg LVOT Diameter1.8 (1.8-2.4cm)Doppler AVA1.50cm2 Pulmonic Valve V20.99m/s Tricuspid Valve TR Velocity3.71m/s [id number] LEFT VENTRICLE The left ventricle is normal size. There is mild concentric left ventricular hypertrophy. The left ventricle is normal in structure and function. The Ejection Fraction is within normal limits. RIGHT VENTRICLE The right ventricle is enlarged. ATRIA The left atrium is enlarged. The right atrium is enlarged. The interatrial septum is intact with no evidence for an atrial septal defect. MITRAL VALVE The mitral valve is normal in structure. Mitral annular calcification is mild. Mitral regurgitation is mild. PULMONIC VALVE The pulmonic valve is not well visualized. TRICUSPID VALVE The tricuspid valve is grossly normal. There is moderate tricuspid regurgitation. Right ventricular systolic pressure is greater than 60 mmHg. AORTIC VALVE The aortic valve opens well. The aortic valve is mildly sclerotic. No aortic regurgitation is present. GREAT VESSELS The aortic root is normal size. PERICARDIAL EFFUSION There is no pericardial effusion. Other Information Technically limited study due to body habitus. Conclusion MILD MAC MILD MR MOD TR LAE JAKE SEVERE PAH EF >55% LVH
== END | disposition home or self-care (01) ==
LOC: Rad HDHVI 13:00
PROVIDERS: ATTEND Internal Medicine Cardiovascular Disease
DX: I27.21 Secondary pulmonary arterial hypertension (principal); I08.3 Combined rheumatic disorders of mitral, aortic and tricuspid valves; I31.39 Other pericardial effusion (noninflammatory); I11.0 Hypertensive heart disease with heart failure; I50.9 Heart failure, unspecified; E66.9 Obesity, unspecified
CPT/HCPCS: 93306; 96372; G0463; J3420

== ENCOUNTER 2025-03-26 15:25 | Outpatient (CLI) | payer MEDICARE, OTHER | END 2025-03-26 17:00 | disposition home or self-care (01) | LOC: Rad HDHVI 15:25 | PROVIDERS: ATTEND Internal Medicine Cardiovascular Disease | DX: I65.23 Occlusion and stenosis of bilateral carotid arteries (principal); I10 Essential (primary) hypertension | CPT/HCPCS: 93880 ==

== ENCOUNTER 2025-08-28 13:01 | Outpatient (CLI) | payer MEDICARE, OTHER ==
[~2025-08-28] VITALS: Ht 30.5 cm; Wt 0.5 kg
[2025-08-28 12:59] VITALS: BP 125/77; PULSE 76; RESP 20; O2SAT 93
[2025-08-28] MEDS: CYANOCOBALAMIN (B-12) 1000 MCG/1 ML VIAL ONE (13:08)
[2025-08-28] MEDS: CYANOCOBALAMIN (B-12) 1000 MCG/1 ML VIAL IM ONE (13:11)
[2025-08-28 13:33] VITALS: BP 143/63; PULSE 74; RESP 20; O2SAT 93
== END 2025-08-28 17:00 | disposition home or self-care (01) ==
LOC: CHF HDHVI 13:01
PROVIDERS: ATTEND Internal Medicine Cardiovascular Disease
DX: I27.21 Secondary pulmonary arterial hypertension (principal); D51.9 Vitamin B12 deficiency anemia, unspecified; I13.0 Hypertensive heart and chronic kidney disease with heart failure and stage 1 through stage 4 chronic kidney disease, or unspecified chronic kidney disease; E11.22 Type 2 diabetes mellitus with diabetic chronic kidney disease; I50.9 Heart failure, unspecified; N18.30 Chronic kidney disease, stage 3 unspecified; M10.9 Gout, unspecified; E03.9 Hypothyroidism, unspecified; Z87.440 Personal history of urinary (tract) infections
CPT/HCPCS: 96372; G0463; J3420